=== PATIENT | male | born 1970 | race Caucasian/White ===

== ENCOUNTER 2017-04-10 21:43 | Inpatient (IN) | payer OTHER ==
[~2017-04-10] VITALS: Ht 172.7 cm; Wt 81.0 kg
[2017-04-10] MEDS: SODIUM CHLOR 0.9% 1000 ML INJ 1,000 ML IV SCH (00:30)
[2017-04-10 21:45] VITALS: O2SAT 100
[2017-04-10] MEDS ORDERED: GENTAMICIN 80 MG PREMIX 100 ML ONE (21:49)
[2017-04-10] MEDS ORDERED: VANCOMYCIN HCL 1000 MG VIAL ONE ×2 (21:49→21:53)
[2017-04-10] MEDS ORDERED: DIPHTH/TETANUS/ACEL PERTUSSIS (BOOSTER) 0.5 ML VIAL/PFS IM ONE ×2 (21:49→21:53)
[2017-04-10] MEDS ORDERED: SUCCINYLCHOLINE CHLORIDE 200 MG/10 ML VIAL ONE (21:50)
[2017-04-10] MEDS ORDERED: ETOMIDATE 20 MG/10 ML VIAL ONE (21:51)
[2017-04-10] MEDS ORDERED: PROPOFOL 1000 MG/100 ML INJ 100 ML ONE (21:54)
[2017-04-10 21:55] VITALS: O2SAT 100; O2SAT 96
[2017-04-10 22:19] LABS: AUTOMATED NEUTROPHIL # 4.8 TH/MM3 (1.8-7.7); BASOPHIL # 0.1 TH/MM3 (0-0.2); BASOPHIL % 0.5 % (0.0-2.0); EOSINOPHIL # 0.1 TH/MM3 (0-0.4); EOSINOPHIL % 1.4 % (0.0-4.0); HEMATOCRIT 38.8 % (39.0-51.0); HEMOGLOBIN 13.3 GM/DL (13.0-17.0); LYMPH % 44.2 % (9.0-44.0); LYMPHOCYTE # 4.4 TH/MM3 (1.0-4.8); MEAN CELL VOLUME 91.6 FL (80.0-100.0); MEAN CORPUSCULAR HEMOGLOBIN 31.3 PG (27.0-34.0); MEAN CORPUSCULAR HGB CONC 34.2 % (32.0-36.0); MEAN PLATELET VOLUME 8.3 FL (7.0-11.0); MONO % 5.9 % (0.0-8.0); MONOCYTE # 0.6 TH/MM3 (0-0.9); PLATELET COUNT 253 TH/MM3 (150-450); RED BLOOD COUNT 4.24 MIL/MM3 (4.50-5.90); RED CELL DISTRIBUTION WIDTH 12.1 % (11.6-17.2); WHITE BLOOD COUNT 9.9 TH/MM3 (4.0-11.0)
[2017-04-10 22:20] VITALS: O2SAT 100
[2017-04-10 22:26] LABS: INTERNATIONAL NORMALIZED RATIO 1.1 RATIO; PROTHROMBIN TIME - PATIENT 11.2 SEC (9.8-11.6)
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
[2017-04-10] MEDS ORDERED: IOHEXOL 350 MG/ML 10 ML VIAL (for RAD DIAG) IVCONTRAST ONE (22:45)
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
[2017-04-10 23:00] VITALS: O2SAT 100
[2017-04-10] MEDS ORDERED: BISACODYL 10 MG SUPP RECTAL PRN (23:00)
[2017-04-10] MEDS ORDERED: MAGNESIUM HYDROXIDE SUSP 30 ML CUP PO PRN (23:00)
[2017-04-10] MEDS ORDERED: CHLORHEXIDINE GLUCONATE 2 % 1 PACK (2 CLOTHS) TOP PRN (23:00)
[2017-04-10] MEDS ORDERED: SENNOSIDES 8.6 MG TAB PO PRN (23:00)
[2017-04-10] MEDS: DOCUSATE SODIUM 50 MG/SENNA 8.6 MG TAB PO SCH (23:00)
[2017-04-10] MEDS ORDERED: MISCELLANEOUS NURSING INFORMATION XX SCH (23:00)
[2017-04-10] MEDS ORDERED: LACTULOSE SYRUP 20 GM/30 ML CUP PO PRN (23:00)
[2017-04-10] MEDS ORDERED: MIDAZOLAM HCL 2 MG/2 ML VIAL IV SCH (23:20)
[2017-04-10] MEDS ORDERED: ROCURONIUM INJ 100 MG/10 ML VIAL IV SCH (23:20)
[2017-04-10] MEDS ORDERED: MIDAZOLAM HCL 5 MG/ML VIAL (1 ML) ONE (23:24)
[2017-04-10] MEDS ORDERED: ROCURONIUM INJ 50 MG/5 ML VIAL ONE (23:24)
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
[2017-04-10] MEDS ORDERED: fentaNYL 2,500 MCG/NS 250 ML IV PRN (23:45)
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
[2017-04-11] VITALS (14 sets, daily range): BP systolic 104–145; BP diastolic 54–82; PULSE 90–115; RESP 14–16; TEMP 97.2–100.9; O2SAT 99–100
[2017-04-11] MEDS ORDERED: PROPOFOL 500 MG/50 ML INJ 50 ML ONE (00:08)
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
[2017-04-11] MEDS ORDERED: MIDAZOLAM HCL 2 MG/2 ML VIAL ONE ×2 (01:04→12:53)
--- NOTE | 2017-04-11 01:27 | PD.RAD ---
Post Procedure Progress Note Pre Procedure Diagnosis: (1) Open femur fracture, right Post Procedure Diagnosis: (1) Open femur fracture, right Procedure Date: Apr 11, 2017 Supervising Radiologist: Chandler Flaherty Estimated blood loss: 3cc Anesthesia: Local, Conscious Sedation Plan of Activity Patient to Unit: Critical Care Patient Condition: Fair Additional Comments: Right leg angio completed. No active bleeding evident. Intimal injury of the mid SFA with contained partial transection noted. Area repaired with a 2.5cm x 8mm viabon stent. See PACS Report for procedural detail/treatment Chandler Flaherty MD Apr 11, 2017 01:27
[2017-04-11] MEDS ORDERED: IODIXANOL 320 MG/ML 50 ML VIAL (for RAD SPEC) I-ARTERIAL ONE (01:53)
[2017-04-11] MEDS: PROPOFOL 1000 MG/100 ML IV PRN ×6 (03:26→21:29)
[2017-04-11] MEDS: cefTRIAXone INJ 1,000 MG in SODIUM CHLORIDE 0.9% INJ 100 ML IV SCH ×3 (03:27→23:59)
[2017-04-11] MEDS: CHLORHEXIDINE GLUCONATE 2 % 1 PACK (2 CLOTHS) TOP SCH (04:00)
[2017-04-11 05:09] LABS: INTERNATIONAL NORMALIZED RATIO 1.1 RATIO; PROTHROMBIN TIME - PATIENT 11.2 SEC (9.8-11.6)
[2017-04-11 05:11] LABS: BICARBONATE 24.3 MEQ/L (21.0-32.0); CALCIUM 6.9 MG/DL (8.5-10.1); CREATININE 0.85 MG/DL (0.60-1.30); MAGNESIUM 1.8 MG/DL (1.5-2.5)
[2017-04-11 05:19] LABS: AUTOMATED NEUTROPHIL # 6.8 TH/MM3 (1.8-7.7); BASOPHIL % 0.2 % (0.0-2.0); EOSINOPHIL % 0.2 % (0.0-4.0); HEMATOCRIT 39.2 % (39.0-51.0); HEMOGLOBIN 13.4 GM/DL (13.0-17.0); LYMPH % 12.1 % (9.0-44.0); LYMPHOCYTE # 1.1 TH/MM3 (1.0-4.8); MEAN CORPUSCULAR HEMOGLOBIN 28.8 PG (27.0-34.0); MEAN CORPUSCULAR HGB CONC 34.2 % (32.0-36.0); MEAN PLATELET VOLUME 7.6 FL (7.0-11.0); MONO % 10.6 % (0.0-8.0); MONOCYTE # 0.9 TH/MM3 (0-0.9); NEUT % 76.9 % (16.0-70.0); PLATELET COUNT 137 TH/MM3 (150-450); RED BLOOD COUNT 4.66 MIL/MM3 (4.50-5.90); RED CELL DISTRIBUTION WIDTH 19.7 % (11.6-17.2); WHITE BLOOD COUNT 8.8 TH/MM3 (4.0-11.0)
[2017-04-11 05:24] LABS: TOTAL PROTEIN 6.2 GM/DL (6.4-8.2)
[2017-04-11 05:24] LABS: BILIRUBIN, URINE NEG (NEG); BLOOD, URINE MOD (NEG); GLUCOSE,URINE NEG (NEG); KETONE, URINE 10 mg/dL (NEG); NITRITE,URINE NEG (NEG); PH, URINE 5.5 (5.0-8.5); URINE COLOR YELLOW (YELLW/STRAW); URINE LEUKOCYTE ESTERASE NEG (NEG)
[2017-04-11 05:26] LABS: CALCIUM-PROTEIN CORRECTED 7.4 MG/DL (8.5-10.1)
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
[2017-04-11] MEDS: SODIUM CHLOR 0.9% 1000 ML INJ 1,000 ML IV SCH ×2 (08:25→17:16)
[2017-04-11] MEDS: MIDAZOLAM 100 MG/NS 100 ML DRIP Premix IV PRN (08:25)
[2017-04-11] MEDS: FAMOTIDINE 20 MG/2 ML VIAL IV PUSH SCH ×2 (08:25→21:26)
[2017-04-11] MEDS: DOCUSATE SODIUM 50 MG/SENNA 8.6 MG TAB PO SCH ×2 (08:25→21:27)
[2017-04-11] MEDS ORDERED: POTASSIUM CHLOR 40 MEQ PREMIX 100 ML IV PRN ×2 (08:30)
[2017-04-11] MEDS ORDERED: POTASSIUM PHOSPHATE MONOBASIC 500 MG TAB PO/TUBE PRN (08:30)
[2017-04-11] MEDS ORDERED: POTASSIUM PHOSPHATE MONOBASIC 500 MG TAB PO PRN (08:30)
[2017-04-11] MEDS ORDERED: POTASSIUM CHLOR 20 MEQ PREMIX 100 ML IV PRN ×2 (08:30)
[2017-04-11] MEDS ORDERED: MAGNESIUM SULFATE INJ 2 GM in SODIUM CHLORIDE 0.9% INJ 96 ML IV PRN (08:30)
[2017-04-11] MEDS ORDERED: RESP: ALBUTEROL 2.5 MG/IPRATROPIUM 0.5 MG NEB (PRN) NEB (08:30)
[2017-04-11] MEDS ORDERED: POTASSIUM PHOSPHATE INJ 30 MMOL in SODIUM CHLOR 0.9% 250 ML INJ 250 ML IV PRN (08:30)
[2017-04-11] MEDS ORDERED: POTASSIUM CHLORIDE 25 MEQ EFFERVESCENT TAB PO PRN (08:30)
[2017-04-11] MEDS ORDERED: SODIUM PHOSPHATE INJ 30 MMOL in SODIUM CHLOR 0.9% 250 ML INJ 240 ML IV PRN (08:30)
[2017-04-11] MEDS ORDERED: MAGNESIUM OXIDE 400 MG TAB PO PRN (08:30)
[2017-04-11] MEDS ORDERED: MAGNESIUM SULFATE INJ 4 GM in SODIUM CHLORIDE 0.9% INJ 92 ML IV PRN (08:30)
[2017-04-11] MEDS: RESP: ALBUTEROL 2.5 MG/IPRATROPIUM 0.5 MG NEB (SCH) NEB ×3 (09:04→20:34)
[2017-04-11] MEDS ORDERED: GENTAMICIN SULFATE 80 MG/2 ML VIAL ONE (09:52)
[2017-04-11] MEDS ORDERED: ceFAZolin INJ 1,000 MG VIAL ONE ×2 (09:53→12:17)
[2017-04-11] MEDS: fentaNYL 2,500 MCG/NS 250 ML IV PRN ×2 (10:45)
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
[2017-04-11] MEDS ORDERED: LACTATED RINGER'S 1000 ML INJ 2,000 ML IV ONE (12:00)
[2017-04-11] MEDS ORDERED: ROCURONIUM INJ 50 MG/5 ML SYRINGE IV PUSH ONE (12:00)
[2017-04-11] MEDS ORDERED: PERC7.5T13 PO (12:11)
[2017-04-11] MEDS ORDERED: VANCOMYCIN HCL 1000 MG VIAL ONE (12:16)
[2017-04-11] MEDS ORDERED: SODIUM CHLOR 0.9% 250 ML INJ 250 ML ONE (12:17)
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
--- NOTE | 2017-04-11 12:49 | HHI.PR ---
Immediate Post Op Note Procedure Date: Apr 11, 2017 Pre Op Diagnosis: (1) Fracture of proximal phalanx of right great toe (2) Laceration of toe of left foot with complication Post Op Diagnosis: same Surgeon: Ephraim Cano Heavy Equipment Mechanic(s): scrub Procedure: Incision drainage debridement with ORIF right proximal phalanx of Hallux with laceration repair Complications: none Specimen(s) removed: cx right hallux rx Estimated blood loss: less 30mL for foot procedure, please see EBL in Ortho OP report Anesthesia: General Drains: None Patient to: Other Patient Condition: Fair Implant/Devices: SEE IMPLANT LOG (if applicable) Date/Time of Procedure: SEE SURGICAL CARE RECORD Ephraim Cano DPM Apr 11, 2017 12:49
--- NOTE | 2017-04-11 12:51 | PD.POD ---
Objective Vital Signs Vital Signs Date Time Temp Pulse Resp B/P (MAP) Pulse Ox O2 Delivery O2 Flow Rate FiO2 04/11/17 10:30 99 100 04/11/17 10:00 115 04/11/17 08:00 105 04/11/17 08:00 40 04/11/17 08:00 100.6 105 14 119/66 (83) 99 04/11/17 07:28 100 30 04/11/17 07:00 99 Mechanical Ventilator 40 04/11/17 04:17 100 40 04/11/17 04:00 99.7 100 16 122/73 (89) 100 04/11/17 04:00 40 04/11/17 00:30 100 04/11/17 00:00 97.2 98 16 145/82 (103) 100 04/11/17 00:00 40 04/10/17 23:00 100 100 04/10/17 22:20 100 100 04/10/17 21:55 100 04/10/17 21:45 100 Non-Rebreather 04/10/17 21:45 100 12.00 Coded Allergies: No Known Allergies (Unverified , 04/10/17) Assessment & Plan Diagnosis: (1) Laceration of toe of left foot with complication ICD Codes: S91.119A - Laceration without foreign body of unspecified toe without damage to nail, initial encounter Status: Acute (2) Fracture of proximal phalanx of right great toe ICD Codes: S92.411A - Displaced fracture of proximal phalanx of right great toe , initial encounter for closed fracture Status: Acute A/P FULL CONSULT DICTATED OR today Incision drainage ORIF right hallux with laceration repair, will likely need digit amputation as zone of injury declares over the next few days Problem Qualifiers (1) Laceration of toe of left foot with complication: Qualified Codes: S91.119D - Laceration without foreign body of unspecified toe without damage to nail, subsequent encounter (2) Fracture of proximal phalanx of right great toe: Ephraim Cueva DPM Apr 11, 2017 12:51
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
[2017-04-11] MEDS ORDERED: Post-op Orders (for Pharmacy) XX ONE (13:00)
[2017-04-11] MEDS ORDERED: LACTULOSE SYRUP 20 GM/30 ML CUP PO PRN (13:00)
[2017-04-11] MEDS ORDERED: MORPHINE SULFATE 8 MG/ML INJ IV PUSH PRN (13:00)
[2017-04-11] MEDS ORDERED: ENOXAPARIN SODIUM 30 MG/0.3 ML SYRINGE SQ SCH (13:00)
[2017-04-11] MEDS ORDERED: SODIUM CHLORIDE 0.9% FLUSH 10 ML FLUSH IV FLUSH PRN (13:00)
[2017-04-11] MEDS ORDERED: MAGNESIUM HYDROXIDE SUSP 30 ML CUP PO PRN (13:00)
[2017-04-11] MEDS: KETOROLAC TROMETHAMINE 30 MG/ML (IVP) VIAL IVP SCH ×2 (13:00→21:27)
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
[2017-04-11] MEDS ORDERED: ALBUMIN 5% INJ 500 ML IV ONE (14:15)
--- NOTE | 2017-04-11 14:16 | PD.CONS ---
cc: Oc Yates Jr., MD HPI Service Orthopedic Surgeons Consult Requested By Primary Care Physician Unknown Admission Diagnosis Open pelvic fracture, Diagnoses: Chief Complaint: Right pelvic injury Open segmental right femur fracture History of Present Illness This is a 47-year-old male involved in an [place], was active bleeding from open femur wound on the right side so the tourniquet was up applied by EMS patient , was neurologically intact GCS 15, he has a right femur open wound 2010 cm anteriorly and one other 1010 cm open wound in the groin area to the pelvis open, initially he was hemodynamically normal then became hypotensive in the trauma bay. The patient received 4 units of PRBC, TXA, and FFP. Pelvic binder was placed. Radiographic examination in the emergency department reveal segmental right femur fracture as well as APC pelvic injury. Patient seen and examined while intubated. ROS - General Review of Systems ROS Limitations: Clinical Condition, Intubated PFSH Past Family Social History Allergies: Coded Allergies: No Known Allergies (Unverified , 04/10/17) Past Medical History None Past Surgical History None Reported Medications None Family History None Social History none Past Family Social History Allergies: Coded Allergies: No Known Allergies (Unverified , 04/10/17) Active Ordered Medications Current Medications Medications (Trade) Dose Ordered Sig/[place] Route Start Time Stop Time Status Last Admin Sodium Chloride 1,000 ml @ 100 mls/hr Q10H IV 04/10/17 23:00 04/11/17 08:25 (Pepcid Inj) 20 mg Q12HR IV PUSH 04/10/17 23:00 04/11/17 08:25 Miscellaneous Information 1 Q361D XX 04/10/17 23:00 04/10/17 00:30 (Chlorhexidine 2% Cloth) 3 pack Taper DAILY@04 TOP 04/11/17 04:00 04/07/18 03:59 (Chlorhexidine 2% Cloth) 3 pack UNSCH PRN TOP 04/10/17 23:00 (Deja-Colace) 1 tab BID PO 04/10/17 23:00 04/11/17 08:25 (Milk Of Magnesia Liq) 30 ml Q12H PRN PO 04/10/17 23:00 (Dulcolax Supp) 10 mg DAILY PRN RECTAL 04/10/17 23:00 (Lactulose Liq) 30 ml DAILY PRN PO 04/10/17 23:00 Fentanyl Citrate 250 ml @ 5 mls/hr TITRATE PRN IV 04/10/17 23:45 04/11/17 10:45 Ceftriaxone Sodium 1000 mg/ Sodium Chloride 100 ml @ 200 mls/hr Q12H IV 04/10/17 23:45 04/11/17 03:27 Midazolam HCl 100 ml @ 2 mls/hr TITRATE PRN IV 04/10/17 23:45 04/11/17 08:25 Propofol 100 ml @ 0 mls/hr TITRATE PRN IV 04/11/17 01:45 04/11/17 10:44 Potassium Chloride 100 ml @ 50 mls/hr Q2H PRN IV 04/11/17 08:30 Potassium Chloride 100 ml @ 50 mls/hr Q2H PRN IV 04/11/17 08:30 (K-Lyte Cl Eff) 50 meq UNSCH PRN PO 04/11/17 08:30 Potassium Chloride 100 ml @ 25 mls/hr UNSCH PRN IV 04/11/17 08:30 Potassium Chloride 100 ml @ 50 mls/hr Q2H PRN IV 04/11/17 08:30 Magnesium Sulfate 4 gm/Sodium Chloride 100 ml @ 50 mls/hr UNSCH PRN IV 04/11/17 08:30 (Mag-Ox) 800 mg UNSCH PRN PO 04/11/17 08:30 Magnesium Sulfate 2 gm/Sodium Chloride 100 ml @ 50 mls/hr UNSCH PRN IV 04/11/17 08:30 (K-Phos) 2,000 mg Q4H PRN PO 04/11/17 08:30 Sodium Phosphate 30 mmol/Sodium Chloride 250 ml @ 42 mls/hr UNSCH PRN IV 04/11/17 08:30 (K-Phos) 2,000 mg UNSCH PRN PO/TUBE 04/11/17 08:30 Potassium Phosphate 30 mmol/ Sodium Chloride 260 ml @ 42 mls/hr UNSCH PRN IV 04/11/17 08:30 (Peridex 0.12% Liq) 15 ml BID@08,20 MT 04/11/17 20:00 (Duoneb Neb) 1 ampule Q6HR NEB NEB 04/11/17 10:00 04/11/17 09:04 (Duoneb Neb) 1 ampule Q2HR NEB PRN NEB 04/11/17 08:30 (NS Flush) 2 ml UNSCH PRN IV FLUSH 04/11/17 13:00 (NS Flush) 2 ml BID IV FLUSH 04/11/17 21:00 Cefazolin Sodium 1000 mg/Sodium Chloride 100 ml @ 200 mls/hr Q6H IV 04/11/17 12:15 04/16/17 12:14 UNV Vancomycin HCl 1000 mg/Sodium Chloride 250 ml @ 250 mls/hr Q12H IV 04/11/17 12:15 04/16/17 12:14 UNV (Lovenox Inj) 30 mg Q12H SQ 04/11/17 12:15 UNV (Morphine Inj) 5 mg Q3H PRN IV PUSH 04/11/17 13:00 (Percocet 5-325 Mg) 1 tab Q4H PRN PO 04/11/17 13:00 (Percocet 5-325 Mg) 2 tab Q4H PRN PO 04/11/17 13:00 (Toradol Inj) 15 mg Q6H IVP 04/11/17 13:00 04/13/17 07:01 (Phenergan) 25 mg Q4H PRN PO 04/11/17 13:00 (Theragran M Tab) 1 tab BID PO 04/12/17 21:00 06/11/17 20:59 (Ambien) 5 mg HS PRN PO 04/11/17 21:00 (Deja-Colace) 1 tab BID PO 04/11/17 21:00 (Milk Of Magnesia Liq) 30 ml Q12H PRN PO 04/11/17 13:00 (Senokot) 17.2 mg Q12H PRN PO 04/11/17 13:00 (Dulcolax Supp) 10 mg DAILY PRN RECTAL 04/11/17 13:00 (Lactulose Liq) 30 ml DAILY PRN PO 04/11/17 13:00 (Lovenox Inj) 30 mg Q12H SQ 04/11/17 13:00 UNV Reported Meds & Active Scripts Active Percocet (Oxycodone-Acetaminophen) 7.5-325 mg Tab 1 Tab PO Q4H PRN Physical Exam Vital Signs Vital Signs Date Time Temp Pulse Resp B/P (MAP) Pulse Ox O2 Delivery O2 Flow Rate FiO2 04/11/17 10:30 99 100 04/11/17 10:00 115 04/11/17 08:00 105 04/11/17 08:00 40 04/11/17 08:00 100.6 105 14 119/66 (83) 99 04/11/17 07:28 100 30 04/11/17 07:00 99 Mechanical Ventilator 40 04/11/17 04:17 100 40 04/11/17 04:00 99.7 100 16 122/73 (89) 100 04/11/17 04:00 40 04/11/17 00:30 100 04/11/17 00:00 97.2 98 16 145/82 (103) 100 04/11/17 00:00 40 04/10/17 23:00 100 100 04/10/17 22:20 100 100 04/10/17 21:55 100 04/10/17 21:45 100 Non-Rebreather 04/10/17 21:45 100 12.00 Physical Exam Intubated Head: NC/AT Bilateral upper extremity: Good cap refill. Fingers are warm and well- perfused. 2+ radial artery pulses. RIGHT lower extremity: Shortened and externally rotated right lower extremity. Large 10 x 10cm proximal medial thigh wound extending into the groin with exposed femoral neurovascular bundle. A large 10 x 20 cm mid shaft femur wound with exposed soft tissue with significant dirt and soft tissue contamination. + PT/DP pulses. Supple compartments. Severely bruised right great toe, otherwise toes are warm and well-perfused. LEFT lower extremity: No deformity. Supple compartments. toes warm and well perfused. Laboratory Laboratory Tests Test 04/10/17 21:48 04/10/17 23:45 04/11/17 04:30 04/11/17 04:37 White Blood Count 9.9 8.8 Red Blood Count 4.24 4.66 Hemoglobin 13.3 13.4 Bedside Hemoglobin 12.6 Hematocrit 38.8 39.2 Bedside Hematocrit 37.0 Mean Corpuscular Volume 91.6 84.0 Mean Corpuscular Hemoglobin 31.3 28.8 Mean Corpuscular Hemoglobin Concent 34.2 34.2 Red Cell Distribution Width 12.1 19.7 Platelet Count 253 137 Mean Platelet Volume 8.3 7.6 Neutrophils (%) (Auto) 48.0 76.9 Lymphocytes (%) (Auto) 44.2 12.1 Monocytes (%) (Auto) 5.9 10.6 Eosinophils (%) (Auto) 1.4 0.2 Basophils (%) (Auto) 0.5 0.2 Neutrophils # (Auto) 4.8 6.8 Lymphocytes # (Auto) 4.4 1.1 Monocytes # (Auto) 0.6 0.9 Eosinophils # (Auto) 0.1 0.0 Basophils # (Auto) 0.1 0.0 CBC Comment DIFF FINAL AUTO DIFF Differential Comment AUTO DIFF CONFIRMED Prothrombin Time 11.2 11.2 Prothromb Time International Ratio 1.1 1.1 Activated Partial Thromboplast Time 21.9 Bedside Sodium 142 Bedside Potassium 3.5 Bedside Chloride 105 Bedside Blood Urea Nitrogen 15 Bedside Creatinine 1.3 Bedside Glucose 116 Ethyl Alcohol Level 241 Blood Gas Puncture Site LT RADIAL Blood Gas Patient Temperature 98.6 Blood Gas HCO3 21 Blood Gas Base Excess -4.8 Blood Gas Oxygen Saturation 98 Arterial Blood pH 7.28 Arterial Blood Partial Pressure CO2 46 Arterial Blood Partial Pressure O2 475 Arterial Blood Oxygen Content 19.3 Arterial Blood Carboxyhemoglobin 1.1 Arterial Blood Methemoglobin 1.1 Blood Gas Hemoglobin 13.2 Oxygen Delivery Device VENTILATOR Blood Gas Ventilator Setting PRVC16/600/+8/1.0 Blood Gas Inspired Oxygen 100 Nasal Screen MRSA (PCR) MRSA NOT DETECTED Platelet Estimate LOW Platelet Morphology Comment NORMAL Blood Urea Nitrogen 11 Creatinine 0.85 Random Glucose 105 Total Protein 6.2 Calcium Level 6.9 Magnesium Level 1.8 Sodium Level 142 Potassium Level 3.7 Chloride Level 108 Carbon Dioxide Level 24.3 Anion Gap 10 Estimat Glomerular Filtration Rate 97 Protein Corrected Calcium 7.4 Phosphorus Level 2.7 Test 04/11/17 05:00 04/11/17 11:18 Urine Color YELLOW Urine Turbidity CLEAR Urine pH 5.5 Urine Specific [place] GREATER THAN 1.050 Urine Protein 30 Urine Glucose (UA) NEG Urine Ketones 10 Urine Occult Blood MOD Urine Nitrite NEG Urine Bilirubin NEG Urine Urobilinogen LESS THAN 2.0 Urine Leukocyte Esterase NEG Urine RBC 9 Urine WBC 2 Microscopic Urinalysis Comment CATH-CULT NOT IND Blood Gas Puncture Site ART LINE Blood Gas Patient Temperature 98.6 Blood Gas HCO3 25 Blood Gas Base Excess -0.9 Blood Gas Oxygen Saturation 97 Arterial Blood pH 7.31 Arterial Blood Partial Pressure CO2 50 Arterial Blood Partial Pressure O2 257 Arterial Blood Oxygen Content 14.8 Arterial Blood Carboxyhemoglobin 1.0 Arterial Blood Methemoglobin 1.7 Blood Gas Hemoglobin 10.4 Oxygen Delivery Device VENTILATOR Blood Gas Inspired Oxygen 60 Date/Time Source Procedure Growth Status 04/11/17 12:14 Wound Toe Fungal Smear Pending Received 04/11/17 12:14 Wound Toe Fungal Culture Pending Received Result Diagram: 04/11/17 0437 04/11/17 0437 Imaging Last 72 hours Impressions Toe X-Ray 04/11/17 0000 Signed Impressions: Service Date/Time: Tuesday, April 11, 2017 11:15 - CONCLUSION: Gross alignment of comminuted proximal phalangeal fractures. Juaquin Arias MD Foot X-Ray 04/11/17 0000 Signed Impressions: Service Date/Time: Tuesday, April 11, 2017 04:18 - CONCLUSION: 1. Open comminuted fracture of the first proximal phalanx. Kraig Avila MD Femur X-Ray 04/11/17 0000 Signed Impressions: Service Date/Time: Tuesday, April 11, 2017 11:15 - CONCLUSION: Fractures. Juaquin Arias MD Chest X-Ray 04/11/17 0000 Signed Impressions: Service Date/Time: Tuesday, April 11, 2017 04:15 - CONCLUSION: 1. ETT and NGT as above. 2. No acute abnormality or significant interval change. Kraig Avila MD Thoracic Spine CT 04/10/172206 Signed Impressions: Service Date/Time: Monday, April 10, 2017 22:36 - CONCLUSION: 1. No acute fracture or subluxation. Kraig Avila MD Pelvis X-Ray 04/10/172206 Signed Impressions: Service Date/Time: Monday, April 10, 2017 21:46 - CONCLUSION: 1. Multiple right-sided pelvic fractures and diastases pubic symphysis Gee Lloyd MD Lumbar Spine CT 04/10/172206 Signed Impressions: Service Date/Time: Monday, April 10, 2017 22:36 - CONCLUSION: 1. Very subtle, less than 2 mm, retrolisthesis of L3 on L4. Th suspect this is likely secondary to degenerative spondylosis in the lower lumbar spine. 2. No acute lumbar spine fracture. 3. Degenerative spondylosis of the lower lumbar spine most prominently at L3-S1. Kraig Avila MD Head CT 04/10/172206 Signed Impressions: Service Date/Time: Monday, April 10, 2017 22:27 - CONCLUSION: No acute intracranial disease. Gee Lloyd MD Chest X-Ray 04/10/172206 Signed Impressions: Service Date/Time: Monday, April 10, 2017 21:46 - CONCLUSION: No acute disease. Gee Lloyd MD Chest CT 04/10/172206 Signed Impressions: Service Date/Time: Monday, April 10, 2017 22:36 - CONCLUSION: 1. Mild posterior lower lobe ground glass opacities consistent with lung contusions versus atelectasis. 2. Right clavicle fixation hardware and old healed left clavicle fracture. 3. Otherwise, no acute traumatic injury in the chest. Kraig Avila MD Cervical Spine CT 04/10/172206 Signed Impressions: Service Date/Time: Monday, April 10, 2017 22:27 - CONCLUSION: 1. No fracture or subluxation. Gee Lloyd MD Abdomen/Pelvis CT 04/10/172206 Signed Impressions: Service Date/Time: Monday, April 10, 2017 22:36 - CONCLUSION: 1. Right-sided shear type pelvic injury with oblique right iliac fracture and disruption of the pubic symphysis and right SI joint. 2. Comminuted right femoral intertrochanteric fracture with osseous fracture near open right pelvic wound. 3. No definitive active hemorrhage or significant hematoma in the pelvis. Small hematoma in the lateral right abdominal wall. Kraig Avila MD Tibia/Fibula X-Ray 04/10/17 0000 Signed Impressions: Service Date/Time: Monday, April 10, 2017 21:46 - CONCLUSION: No fracture seen. Gee Lloyd MD Lower Extremity Angiography 04/10/17 0000 Signed Impressions: Service Date/Time: Tuesday, April 11, 2017 01:37 - CONCLUSION: 1. No definite active bleed was evident however, the examination did demonstrate focal intimal disruption with high grade stenosis involving the right superficial femoral artery at the adductor hiatus. This was immediately adjacent to the patient's severe femur fracture. This was treated with a 2.5 cm by 8mm via bon stent. Postprocedure, the patient had excellent pedal pulses. Chandler Flaherty MD Femur X-Ray 04/10/17 0000 Signed Impressions: Service Date/Time: Monday, April 10, 2017 21:46 - CONCLUSION: Comminuted fracture mid to distal shaft of the femur.. Gee Lloyd MD Chest X-Ray 04/10/17 0000 Signed Impressions: Service Date/Time: Monday, April 10, 2017 21:46 - CONCLUSION: No acute disease. Endotracheal tube with tip 2.5 cm above jade. Gee Lloyd MD Aorta w/Runoff CTA 04/10/17 0000 Signed Impressions: Service Date/Time: Monday, April 10, 2017 22:36 - CONCLUSION: 1. There are two areas of apparent active hemorrhage in the right thigh. Most prominently, active hemorrhage is noted in the proximal posterior thigh compartment likely from a proximal profunda branch although a distal gluteal branch injury cannot be excluded due to the cephalad extent of hemorrhage. There is a second more subtle region of active hemorrhage in the mid medial thigh compartment likely from a distal profunda branch injury. 2. Right pelvic shear injury with fracture of the right iliac bone and diastases of the right SI joint and pubic symphysis. 3. Comminuted open right femoral intertrochanteric and comminuted mid to distal right femoral diaphyseal fractures. 4. Comminuted open fracture of the right first toe. Kraig Avila MD Assessment & Plan Assessment and Plan 1- Segmental grade 3C open RIGHT femur fracture 2-APC pelvic injury. Patient seen and examined while intubated. 47-year-old male involved in an [place], presented to the emergency department with a tourniquet on the right extremity from open right thigh injury. He initially he was hemodynamically normal then became hypotensive in the trauma bay. The patient received 4 units of PRBC, TXA, and FFP. Pelvic binder was placed. He subsequently had a stent placed in his superficial femoral artery by interventional radiology for arterial injury. Radiographic examination in the emergency department reveal segmental right femur fracture as well as APC pelvic injury. This patient has a severe injury to her right lower extremity which are limb threatening and at increased risk for postoperative infection and complication. He will require multiple orthopedic procedures as well as plastic surgery intervention for soft tissue coverage in the future. At this time, I recommend wound exploration, irrigation and debridement, possible external fixator placement. IV abx given. Oc Yates Jr., MD Apr 11, 2017 14:16
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
[2017-04-11] MEDS ORDERED: SODIUM BICARBONATE 8.4% INJ 100 MEQ in WATER STERILE FOR INJ 850 ML IV SCH (17:00)
[2017-04-11] MEDS ORDERED: SODIUM BICARBONATE 8.4% INJ 150 MEQ in WATER STERILE FOR INJ 850 ML IV SCH (17:00)
[2017-04-11] MEDS ORDERED: SODIUM CHLOR 0.9% 1000 ML INJ 1,000 ML IV ONE (17:30)
[2017-04-11] MEDS: SODIUM BICARBONATE 8.4% INJ 100 MEQ in WATER STERILE FOR INJ 900 ML IV SCH (19:00)
[2017-04-11] MEDS: CHLORHEXIDINE 0.12% (ORAL KIT) 15 ML CUP MT SCH (20:00)
[2017-04-11] MEDS: SODIUM CHLORIDE 0.9% FLUSH 10 ML FLUSH IV FLUSH SCH (21:00)
[2017-04-11] MEDS ORDERED: ZOLPIDEM TARTRATE 5 MG TAB PO PRN (21:00)
[2017-04-12] VITALS (16 sets, daily range): BP systolic 92–141; BP diastolic 50–76; PULSE 96–122; RESP 14–16; TEMP 99.7–101.7; O2SAT 93–100
[2017-04-12] MEDS ORDERED: ACETAMINOPHEN 325 MG TAB PO SCH
[2017-04-12] MEDS: VANCOMYCIN INJ 1,000 MG in SODIUM CHLOR 0.9% 250 ML INJ 250 ML IV SCH ×2 (00:58→13:38)
[2017-04-12] MEDS: fentaNYL 2,500 MCG/NS 250 ML IV PRN ×2 (01:36→17:16)
[2017-04-12] MEDS: KETOROLAC TROMETHAMINE 30 MG/ML (IVP) VIAL IVP SCH ×4 (01:59→20:02)
[2017-04-12 03:46] LABS: AUTOMATED NEUTROPHIL # 6.2 TH/MM3 (1.8-7.7); BASOPHIL % 0.4 % (0.0-2.0); EOSINOPHIL # 0.1 TH/MM3 (0-0.4); EOSINOPHIL % 1.7 % (0.0-4.0); HEMATOCRIT 29.2 % (39.0-51.0); HEMOGLOBIN 9.9 GM/DL (13.0-17.0); LYMPH % 11.2 % (9.0-44.0); LYMPHOCYTE # 0.9 TH/MM3 (1.0-4.8); MEAN CELL VOLUME 83.8 FL (80.0-100.0); MEAN CORPUSCULAR HEMOGLOBIN 28.4 PG (27.0-34.0); MEAN CORPUSCULAR HGB CONC 33.9 % (32.0-36.0); MEAN PLATELET VOLUME 7.9 FL (7.0-11.0); MONO % 6.1 % (0.0-8.0); MONOCYTE # 0.5 TH/MM3 (0-0.9); NEUT % 80.6 % (16.0-70.0); PLATELET COUNT 107 TH/MM3 (150-450); RED BLOOD COUNT 3.48 MIL/MM3 (4.50-5.90); RED CELL DISTRIBUTION WIDTH 18.9 % (11.6-17.2); WHITE BLOOD COUNT 7.7 TH/MM3 (4.0-11.0)
[2017-04-12] MEDS: CHLORHEXIDINE GLUCONATE 2 % 1 PACK (2 CLOTHS) TOP SCH (04:00)
[2017-04-12] MEDS: RESP: ALBUTEROL 2.5 MG/IPRATROPIUM 0.5 MG NEB (SCH) NEB ×3 (04:09→19:49)
[2017-04-12 04:22] LABS: ALBUMIN 2.6 GM/DL (3.4-5.0); BICARBONATE 28.8 MEQ/L (21.0-32.0); CALCIUM 6.5 MG/DL (8.5-10.1); CREATININE 0.73 MG/DL (0.60-1.30); MAGNESIUM 1.7 MG/DL (1.5-2.5)
[2017-04-12 04:41] LABS: CALCIUM-PROTEIN CORRECTED 7.6 MG/DL (8.5-10.1); TOTAL BILIRUBIN ADULT 1.7 MG/DL (0.2-1.0); TOTAL PROTEIN 4.9 GM/DL (6.4-8.2)
--- NOTE | 2017-04-12 05:24 | RADRPT ---
EXAM DATE/TIME: 04/12/2017 04:18 [place] COMPARISON: CHEST SINGLE AP, April 11, 2017, 4:15. INDICATIONS : Short of breath. MEDICAL HISTORY : None. SURGICAL HISTORY : None. ENCOUNTER: Subsequent ACUITY: 2 days PAIN SCORE: 0/10 LOCATION: Bilateral chest FINDINGS: ET tube tip well above the jade. Gastric tube traverses the [id number] there the lungs are symm etrically aerated and clear. The heart is normal in size. Right clavicular plate. Healed fracture left mid shaft clavicle. CONCLUSION: The lungs are clear. Scar Bryan MD on April 12, 2017 at 5:22 Board Certified Radiologist. This report was verified electronically.
[2017-04-12] MEDS ORDERED: LACTATED RINGER'S 1000 ML INJ 1,000 ML IV ONE (05:45)
[2017-04-12] MEDS: SODIUM CHLOR 0.9% 1000 ML INJ 1,000 ML IV SCH ×2 (06:15→16:01)
[2017-04-12] MEDS: SODIUM BICARBONATE 8.4% INJ 100 MEQ in WATER STERILE FOR INJ 900 ML IV SCH (06:33)
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
[2017-04-12 07:27] LABS: OVALOCYTES 1+ (NORMAL)
[2017-04-12] MEDS: CHLORHEXIDINE 0.12% (ORAL KIT) 15 ML CUP MT SCH ×2 (08:00→20:00)
[2017-04-12] MEDS: DOCUSATE SODIUM 50 MG/SENNA 8.6 MG TAB PO SCH ×2 (08:44→20:02)
[2017-04-12] MEDS: FAMOTIDINE 20 MG/2 ML VIAL IV PUSH SCH ×2 (08:44→20:01)
[2017-04-12] MEDS: SODIUM CHLORIDE 0.9% FLUSH 10 ML FLUSH IV FLUSH SCH ×2 (08:45→20:03)
[2017-04-12] MEDS: LACTULOSE SYRUP 20 GM/30 ML CUP PO SCH (08:45)
[2017-04-12] MEDS: ACETAMINOPHEN 325 MG TAB PO PRN ×2 (09:36→20:01)
[2017-04-12] MEDS: cefTRIAXone INJ 1,000 MG in SODIUM CHLORIDE 0.9% INJ 100 ML IV SCH (09:59)
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
[2017-04-12 10:50] LABS: HEMATOCRIT 25.3 % (39.0-51.0); HEMOGLOBIN 8.7 GM/DL (13.0-17.0)
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
--- NOTE | 2017-04-12 15:11 | OTSOAPIP ---
TIME SESSION COMPLETED: AM TREATMENT TIME: 0 MINS. CHART REVIEWED. RECEIVED ORDERS FOR OT CONSULT. PT IN BUCKS TRACTION AND PENDING SURGERY LIKELY TOMORROW. WILL HOLD OFF UNTIL AFTER SURGERY FOR ASSESSMENT. Therapist: GENESIS DICK OT/L Signature on file
[2017-04-12] MEDS: MULTIVITAMINS/MINERALS THERAPEUTIC TAB PO SCH (20:01)
--- NOTE | 2017-04-12 20:58 | PD.POD ---
Subjective Podiatric Problems Right hallux comminuted proximal phalanx fracture s/p pinning of right hallux and repair of laceration, Anay 04/11/17 Objective Vital Signs Vital Signs Date Time Temp Pulse Resp B/P (MAP) Pulse Ox O2 Delivery O2 Flow Rate FiO2 04/12/17 20:00 30 04/12/17 20:00 101.7 122 16 141/70 (93) 97 102/76 (85) Automatic Cuff 04/12/17 19:49 97 30 04/12/17 19:00 97 Mechanical Ventilator 30 04/12/17 16:00 100.4 103 14 116/61 (79) 100 04/12/17 16:00 30 04/12/17 15:13 100 30 04/12/17 15:00 103 04/12/17 12:00 100.0 100 14 92/53 (66) 100 04/12/17 12:00 30 04/12/17 11:12 99 30 04/12/17 08:00 30 04/12/17 08:00 100.8 117 14 122/59 (80) 93 04/12/17 07:44 98 30 04/12/17 07:00 117 04/12/17 07:00 95 Mechanical Ventilator 40 04/12/17 04:09 100 30 04/12/17 04:00 99.7 96 14 102/50 (67) 100 04/12/17 04:00 30 04/12/17 00:57 100 30 04/12/17 00:00 100.9 108 14 107/61 (76) 100 04/12/17 00:00 30 04/11/17 23:00 115 04/11/17 21:49 100 30 Coded Allergies: No Known Allergies (Unverified , 04/10/17) Exam-Podiatry Remarks capillary refill apparent to distal aspect right hallux. pin in place. Pin site clean, bandage intact Assessment & Plan A/P Right hallux comminuted proximal phalanx fracture s/p pinning of right hallux and repair of laceration, Anay 04/11/17 Will continue to assess viability of toe and will change bandage in coming days. Keep clean, dry, intact Nenita Painter DPM Apr 12, 2017 20:57
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
[2017-04-13] VITALS (19 sets, daily range): BP systolic 91–140; BP diastolic 47–80; PULSE 92–133; RESP 14–18; TEMP 96.8–101.5; O2SAT 94–100
[2017-04-13] MEDS: cefTRIAXone INJ 1,000 MG in SODIUM CHLORIDE 0.9% INJ 100 ML IV SCH ×2 (00:12→11:45)
[2017-04-13] MEDS: SODIUM CHLOR 0.9% 1000 ML INJ 1,000 ML IV SCH ×3 (00:43→23:08)
[2017-04-13] MEDS: VANCOMYCIN INJ 1,000 MG in SODIUM CHLOR 0.9% 250 ML INJ 250 ML IV SCH ×2 (00:52→14:38)
[2017-04-13] MEDS: KETOROLAC TROMETHAMINE 30 MG/ML (IVP) VIAL IVP SCH ×2 (01:05→07:00)
[2017-04-13] MEDS: SODIUM BICARBONATE 8.4% INJ 100 MEQ in WATER STERILE FOR INJ 900 ML IV SCH (01:29)
[2017-04-13] MEDS: RESP: ALBUTEROL 2.5 MG/IPRATROPIUM 0.5 MG NEB (SCH) NEB ×4 (02:58→21:09)
[2017-04-13] MEDS: CHLORHEXIDINE GLUCONATE 2 % 1 PACK (2 CLOTHS) TOP SCH (03:34)
[2017-04-13] MEDS: MIDAZOLAM 100 MG/NS 100 ML DRIP Premix IV PRN (04:03)
[2017-04-13] MEDS: fentaNYL 2,500 MCG/NS 250 ML IV PRN ×2 (04:03→14:38)
[2017-04-13 04:43] LABS: AUTOMATED NEUTROPHIL # 5.1 TH/MM3 (1.8-7.7); BASOPHIL % 0.4 % (0.0-2.0); EOSINOPHIL # 0.3 TH/MM3 (0-0.4); EOSINOPHIL % 3.9 % (0.0-4.0); HEMATOCRIT 24.2 % (39.0-51.0); HEMOGLOBIN 8.4 GM/DL (13.0-17.0); LYMPH % 11.3 % (9.0-44.0); LYMPHOCYTE # 0.7 TH/MM3 (1.0-4.8); MEAN CELL VOLUME 84.2 FL (80.0-100.0); MEAN CORPUSCULAR HEMOGLOBIN 29.1 PG (27.0-34.0); MEAN CORPUSCULAR HGB CONC 34.6 % (32.0-36.0); MEAN PLATELET VOLUME 7.9 FL (7.0-11.0); MONOCYTE # 0.4 TH/MM3 (0-0.9); NEUT % 78.4 % (16.0-70.0); PLATELET COUNT 103 TH/MM3 (150-450); RED BLOOD COUNT 2.87 MIL/MM3 (4.50-5.90); RED CELL DISTRIBUTION WIDTH 17.6 % (11.6-17.2); WHITE BLOOD COUNT 6.4 TH/MM3 (4.0-11.0)
[2017-04-13 05:13] LABS: BICARBONATE 28.6 MEQ/L (21.0-32.0); CALCIUM 6.8 MG/DL (8.5-10.1); CREATININE 0.54 MG/DL (0.60-1.30); MAGNESIUM 1.8 MG/DL (1.5-2.5); TOTAL PROTEIN 4.8 GM/DL (6.4-8.2)
--- NOTE | 2017-04-13 06:11 | RADRPT ---
EXAM DATE/TIME: 04/13/2017 05:10 [facility] COMPARISON: CHEST SINGLE AP, April 12, 2017, 4:18. INDICATIONS : Short of breath. MEDICAL HISTORY : None. SURGICAL HISTORY : None. ENCOUNTER: Subsequent ACUITY: 3 days PAIN SCORE: Non-responsive. LOCATION: Bilateral chest FINDINGS: A single view of the chest demonstrates the lungs to be symmetrically aerated without evidence of mas s, infiltrate or effusion. The cardiomediastinal contours are unremarkable. ET tube tip well above the jade. Gastric tube traverses the [id number]. Stable clavicular findings. CONCLUSION: The lungs are clear. Scar Bryan MD on April 13, 2017 at 6:09 Board Certified Radiologist. This report was verified electronically.
--- NOTE | 2017-04-13 07:22 | RADRPT ---
EXAM DATE/TIME: 04/13/2017 06:50 [facility] COMPARISON: No previous studies available for comparison. INDICATIONS : Evaluate right knee for fracture MEDICAL HISTORY : femur fracture, wound vac x 2, traction, pelvic fracture SURGICAL HISTORY : wound vac ENCOUNTER: Subsequent ACUITY: 2 days PAIN SCORE: Non-responsive. LOCATION: Right knee FINDINGS: There is a complete fracture of the distal femoral diaphysis which is shattered with numerous displac ed bony fragments significant displacement and angulation. There may be a hairline fracture of the an terior tibial spine. A femoral artery stent is identified. CONCLUSION: Shattered distal femoral fracture questionable fracture anterior tibial spine. Juaquin Arias MD on April 13, 2017 at 7:20 Board Certified Radiologist. This report was verified electronically.
[2017-04-13] MEDS: CHLORHEXIDINE 0.12% (ORAL KIT) 15 ML CUP MT SCH ×2 (07:43→20:00)
[2017-04-13] MEDS: DOCUSATE SODIUM 50 MG/SENNA 8.6 MG TAB PO SCH ×2 (07:44→21:05)
[2017-04-13] MEDS: LACTULOSE SYRUP 20 GM/30 ML CUP PO SCH (07:44)
[2017-04-13] MEDS: MULTIVITAMINS/MINERALS THERAPEUTIC TAB PO SCH ×2 (07:44→21:05)
[2017-04-13] MEDS: FAMOTIDINE 20 MG/2 ML VIAL IV PUSH SCH ×2 (07:51→21:06)
[2017-04-13] MEDS: SODIUM CHLORIDE 0.9% FLUSH 10 ML FLUSH IV FLUSH SCH ×2 (07:51→21:06)
[2017-04-13] MEDS ORDERED: GENTAMICIN SULFATE 80 MG/2 ML VIAL ONE ×3 (09:43→12:11)
[2017-04-13] MEDS ORDERED: ceFAZolin 2 GM PREMIX 50 ML ONE (10:44)
[2017-04-13] MEDS ORDERED: ceFAZolin 2 GM PREMIX 50 ML IV ONE (11:38)
[2017-04-13] MEDS ORDERED: PHENYLEPH/NS 1000 MCG/10 ML SYR IV ONE (12:00)
[2017-04-13] MEDS ORDERED: SODIUM CHLORIDE 0.9% 20 ML VIAL IV ONE (12:00)
[2017-04-13] MEDS ORDERED: ROCURONIUM INJ 50 MG/5 ML SYRINGE IV PUSH ONE (12:00)
[2017-04-13] MEDS ORDERED: PHENYLEPHRINE HCL 10 MG/ML VIAL IV ONE (12:00)
[2017-04-13] MEDS ORDERED: SODIUM CHLOR 0.9% 250 ML INJ 250 ML IV ONE (12:00)
[2017-04-13] MEDS ORDERED: VECURONIUM BROMIDE 20 MG VIAL IV ONE (12:00)
[2017-04-13] MEDS: LACTATED RINGER'S 1000 ML INJ 1,000 ML IV SCH ×2 (12:56→22:56)
--- NOTE | 2017-04-13 13:06 | PD.OP ---
cc: Gt Daily MD Operative Report Date of Surgery: Apr 13, 2017 Preoperative Diagnosis: Pubic symphysis disruption, displaced right hip intertrochanteric fracture, open right distal femur shaft fracture Postoperative Diagnosis: Procedure: Open reduction internal fixation pubic symphysis, reduction and intramedullary nail fixation right intraventricular fracture, irrigation debridement of open distal femur fracture, application wound VAC dressing Surgeon: Gt Daily Electronic Organ Technician(s): LÓPEZ Love PA-C The surgical procedure was assisted by my physician assistant professor of chemistry. My P.A. presence was necessary throughout this case for the manipulation and positioning of the surgical extremity. My P.A. was assisting me throughout the duration of this procedure. The skill set of a physician assistant professor of chemistry was medically necessary to complete this procedure. During the surgical case the director surgical was working at the back table and the physician assistant professor of chemistry was directly assisting me. Operation and Findings: Implants used: ITS pelvic plate, [10]mm Synthes TFNA short troch nail Patient was seen and evaluated preoperatively. Informed consent was obtained after detailed discussion of risk and benefits of surgery. The operative site was marked. Patient was brought to the OR and placed on the OR table. IV sedation and general endotracheal anesthesia were administered. The pelvic region was prepped with alcohol followed by Hibiclens and draped in the usual sterile fashion. A timeout procedure was performed. IV antibiotics were given prior to incision. The procedure began with a five-inch Pfannenstiel incision over the lower abdomen. The subcutaneous tissue was dissected with Bovie. The linea alba was split in line with fibers. The bladder was identified. The bladder was protected throughout the procedure. At this point the pubic symphysis was identified. There was disruption of the pubic symphysis. A 3.5 screw was placed on each side of the pubic symphysis. A 3.5 reduction clamp was now used to reduce the symphysis. Fluoroscopy confirmed excellent alignment of the pelvic ring. A six-hole ITS plate was selected. The plate was provisionally held to bone with K-wires. 3.5 cortical screws were used to compress plate to bone. Three screws were placed on each side of the pubic symphysis. All screws were pre-drilled and pre-measured for appropriate length. Final fluoroscopy revealed well-aligned fracture with well-placed hardware. Next attention was turned to closure. A JAMIL drain was placed deep in the wound. Fascial layer was closed with #1 Vicryl. Subcutaneous tissues closed with 3-0 Vicryl. Skin was closed with nico. Sterile dressings were applied. Needle and sponge counts were correct. Patient was now repositioned onto a fracture table. The right Hip and leg were prepped with alcohol followed by Hibiclens and draped in the usual sterile fashion. IV antibiotics were given prior to incision. Procedure began with reduction of fracture. The intertrochanteric, I was unable to use traction from the fracture table. At this point an external fixator pin was placed in the super acetabular position. A second external fixator pin was placed into the mid section of the femur. A distractor was created. Traction was applied across the intertrochanteric hip fracture. Traction was manipulated until excellent reduction was achieved.. The leg was manipulated to achieve reduction. Fluoroscopy was used to confirm reduction. A three inch incision was made proximal to the trochanter. Subcutaneous tissue was dissected bluntly. Guidepin was placed at the tip of the trochanter and advanced into the femoral canal. Fluoroscopy confirmed appropriate guidepin placement. A opening reamer was placed over the guidepin. The Synthes TFNA nail was attached to the insertion handle. Nail was now placed through the tip of the trochanter into the femoral canal. Fluoroscopy confirmed appropriate nail placement. A second incision was made over the lateral thigh. Cannulas were placed through the insertion handle down to the femur. Guidepin was now placed through the femoral nail into the center of the femoral head. Fluoroscopy confirmed appropriate guidepin placement. Screw length was measured. Cannulated drill was placed over the guidepin. Appropriate length lag screw was now placed. Traction was released and compression was applied. The set screw was now tightened in dynamic mode. Using the insertion handle as a guide a distal interlocking screw was drilled and placed. Final fluoroscopy revealed well aligned fracture with well-placed hardware. Incision was closed with 3-0 Vicryl and nico. At this point the external fixator distractor was removed. Next attention was turned to the open femoral shaft fracture. Skin subcutaneous tissue and fascia were sharply debrided. Areas of muscle were also excised. The majority of the quadriceps muscle did appear to be viable. Soft tissue and bone were cleaned. Curettes were used to debride bone. 3 L of sterile saline were now used to thoroughly irrigate the wound. Several small bone fragments were excised. Next attention was turned to wound VAC dressing. Wound vacs were cut to fit the wound. VAC dressings were now sealed using Ioban. The seals were checked and found to be appropriate. Sterile dressings were applied. Patient placed into a knee immobilizer. He will need additional surgery for open reduction total fixation of left femur fracture. He'll also need additional surgery for soft tissue coverage. Patient was transferred back to intensive care. Gt Daily MD Apr 13, 2017 13:06
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
[2017-04-13 15:45] LABS: HEMATOCRIT 21.9 % (39.0-51.0); HEMOGLOBIN 7.4 GM/DL (13.0-17.0)
--- NOTE | 2017-04-13 16:03 | OTSOAPIP ---
TIME SESSION COMPLETED: TREATMENT TIME: 0 MINS. CHART REVIEWED. PATIENT HAVING SURGERY ON PELVIS TODAY. WILL DEFER EVALUATION UNTIL TOMORROW. Therapist: GENESIS DICK OT/L Signature on file
--- NOTE | 2017-04-13 16:38 | RADRPT ---
EXAM DATE/TIME: 04/13/2017 11:46 [facility] COMPARISON: No previous studies available for comparison. INDICATIONS : ORIF pubic symphysis. MEDICAL HISTORY : Unobtainable. SURGICAL HISTORY : Unobtainable. ENCOUNTER: Subsequent ACUITY: 3 days PAIN SCORE: Non-responsive. LOCATION: Bilateral pelvis FINDINGS: AP, inlet and outlet fluoroscopic views of the pelvis. Plate and screw fixation of the pubic symphysi s. Hardware appears well-positioned and intact. There is anatomic alignment. No significant acute bon y fracture. Surgical clips and Green catheter. CONCLUSION: 1. Pubic symphysis ORIF, as above. Kraig Avila MD on April 13, 2017 at 16:35 Board Certified Radiologist. This report was verified electronically.
--- NOTE | 2017-04-13 16:39 | RADRPT ---
EXAM DATE/TIME: 04/13/2017 12:52 [facility] COMPARISON: No previous studies available for comparison. INDICATIONS : ORIF rigth hip fracture. MEDICAL HISTORY : Unobtainable. SURGICAL HISTORY : Unobtainable. ENCOUNTER: Subsequent ACUITY: 3 days PAIN SCORE: Non-responsive. LOCATION: Right hip FINDINGS: 4 views of the right hip. Intramedullary [place] and compression screw fixation of right femoral intertro chanteric fracture. Hardware is well-positioned. There is near-anatomic alignment. No additional acut e bony fractures. CONCLUSION: 1. Status post right hip ORIF, as above. Kraig Avila MD on April 13, 2017 at 16:36 Board Certified Radiologist. This report was verified electronically.
[2017-04-13] MEDS: GENTAMICIN 80 MG PREMIX 100 ML IV SCH (18:00)
[2017-04-13] MEDS: ceFAZolin 2 GM PREMIX 50 ML IV SCH (18:00)
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
[2017-04-13] MEDS: ACETAMINOPHEN 325 MG TAB PO PRN (21:38)
[2017-04-13] MEDS ORDERED: SODIUM BICARBONATE IV SCH ×2 (23:00)
[2017-04-13] MEDS ORDERED: DEXTROSE 5% IV SCH ×2 (23:00)
[2017-04-13] MEDS ORDERED: WATE IV SCH ×2 (23:00)
[2017-04-14] VITALS (15 sets, daily range): BP systolic 111–124; BP diastolic 54–63; PULSE 102–125; RESP 14–22; TEMP 100–102; O2SAT 95–100
[2017-04-14] MEDS: cefTRIAXone INJ 1,000 MG in SODIUM CHLORIDE 0.9% INJ 100 ML IV SCH ×2 (00:04→12:41)
[2017-04-14] MEDS: VANCOMYCIN INJ 1,000 MG in SODIUM CHLOR 0.9% 250 ML INJ 250 ML IV SCH ×2 (00:53→12:42)
[2017-04-14] MEDS: ceFAZolin 2 GM PREMIX 50 ML IV SCH ×3 (02:19→17:54)
[2017-04-14] MEDS: GENTAMICIN 80 MG PREMIX 100 ML IV SCH ×3 (02:20→17:55)
[2017-04-14] MEDS: RESP: ALBUTEROL 2.5 MG/IPRATROPIUM 0.5 MG NEB (SCH) NEB ×4 (03:02→19:58)
[2017-04-14] MEDS: fentaNYL 2,500 MCG/NS 250 ML IV PRN ×3 (03:14→22:57)
[2017-04-14] MEDS: CHLORHEXIDINE GLUCONATE 2 % 1 PACK (2 CLOTHS) TOP SCH (04:00)
--- NOTE | 2017-04-14 05:17 | RADRPT ---
EXAM DATE/TIME: 04/14/2017 04:40 [facility] COMPARISON: CHEST SINGLE AP, April 13, 2017, 5:10. INDICATIONS : Shortness of breath. MEDICAL HISTORY : None. SURGICAL HISTORY : None. ENCOUNTER: Subsequent ACUITY: 4 - 6 days PAIN SCORE: Non-responsive. LOCATION: Bilateral chest FINDINGS: ET tube tip well above the jade. Gastric tube traverses the [id number]. Interval development o f consolidation in the left lower lung with lost delineation medial left hemidiaphragm. The right patricia ng is clear. Stable clavicular findings. CONCLUSION: Interval development of left lower lung consolidation. Scar Bryan MD on April 14, 2017 at 5:15 Board Certified Radiologist. This report was verified electronically.
[2017-04-14] MEDS: MIDAZOLAM 100 MG/NS 100 ML DRIP Premix IV PRN ×2 (06:02→22:57)
[2017-04-14 06:05] LABS: BASOPHIL % 0.2 % (0.0-2.0); EOSINOPHIL # 0.1 TH/MM3 (0-0.4); EOSINOPHIL % 2.1 % (0.0-4.0); HEMATOCRIT 24.5 % (39.0-51.0); LYMPH % 5.5 % (9.0-44.0); LYMPHOCYTE # 0.4 TH/MM3 (1.0-4.8); MEAN CELL VOLUME 83.8 FL (80.0-100.0); MEAN CORPUSCULAR HEMOGLOBIN 30.7 PG (27.0-34.0); MEAN PLATELET VOLUME 8.3 FL (7.0-11.0); MONO % 4.9 % (0.0-8.0); MONOCYTE # 0.3 TH/MM3 (0-0.9); NEUT % 87.3 % (16.0-70.0); PLATELET COUNT 98 TH/MM3 (150-450); RED BLOOD COUNT 2.92 MIL/MM3 (4.50-5.90); WHITE BLOOD COUNT 6.9 TH/MM3 (4.0-11.0)
[2017-04-14 06:27] LABS: ALBUMIN 1.6 GM/DL (3.4-5.0); BICARBONATE 26.4 MEQ/L (21.0-32.0); CALCIUM 6.5 MG/DL (8.5-10.1); CREATININE 0.64 MG/DL (0.60-1.30); MAGNESIUM 1.7 MG/DL (1.5-2.5)
[2017-04-14 06:47] LABS: CALCIUM-PROTEIN CORRECTED 7.9 MG/DL (8.5-10.1); TOTAL BILIRUBIN ADULT 1.7 MG/DL (0.2-1.0); TOTAL PROTEIN 4.3 GM/DL (6.4-8.2)
[2017-04-14 07:15] LABS: MEAN CORPUSCULAR HGB CONC 36.6 % (32.0-36.0)
[2017-04-14 07:21] LABS: BANDS 18 % (0-6); LYMPHOCYTES 3 % (9-44); MONOCYTES 1 % (0-8); NEUTROPHIL # MANUAL DIFF 6.4 TH/MM3 (1.8-7.7); POLYS (SEG NEUTROPHILS) 75 % (16-70)
--- NOTE | 2017-04-14 07:45 | PD.ORT.PN ---
Subjective Subjective Remarks POD 1 s/p IMN right hip POD 1 s/p ORIF pubic symphysis POD 1 s/p I&D right thigh wounds with vac change s/p right distal femur fx intubated/sedated Objective Vitals Vital Signs Date Time Temp Pulse Resp B/P (MAP) Pulse Ox O2 Delivery O2 Flow Rate FiO2 04/14/17 04:00 102.0 125 16 112/55 (74) 95 04/14/17 04:00 30 04/14/17 02:56 100 30 04/14/17 00:00 101.5 121 14 117/59 (78) 95 04/14/17 00:00 30 04/13/17 23:16 96 30 04/13/17 23:01 101.3 115 15 112/54 96 04/13/17 23:00 114 04/13/17 22:00 101.5 129 18 128/65 98 04/13/17 21:45 101.1 131 16 135/66 97 04/13/17 21:32 101.1 133 17 119/80 98 04/13/17 20:00 30 04/13/17 20:00 100.6 127 16 131/61 (84) 94 04/13/17 19:28 96 Ventilator 04/13/17 19:21 96 30 04/13/17 19:00 95 Mechanical Ventilator 30 04/13/17 16:00 30 04/13/17 16:00 96.8 92 14 110/57 (74) 98 04/13/17 15:37 100 30 04/13/17 15:00 92 04/13/17 08:26 100 30 04/13/17 08:00 100.8 109 14 127/55 (79) 98 04/13/17 08:00 30 I/O 04/13/17 04/13/17 04/13/17 04/14/17 04/14/17 04/14/17 07:00 15:00 23:00 07:00 15:00 23:00 Intake Total 2600 ml 1250 ml 400 ml 4242 ml Output Total 1330 ml 4000 ml 1350 ml 1280 ml Balance 1270 ml -2750 ml -950 ml 2962 ml Intake IV Total 2600 ml 1250 ml 2950 ml Tube Feeding 482 ml Packed Cells 400 ml 400 ml Blood Product IV Normal Saline Flush 350 ml Other 0 ml 60 ml Output Urine Total 1225 ml 800 ml 1250 ml 1250 ml Gastric Drainage Total 0 ml Drainage Total 105 ml 100 ml 30 ml Estimated Blood Loss 200 ml Other 3000 ml # Bowel Movements 0 0 0 Result Diagram: 04/14/17 0530 04/14/17 0530 Imaging Last 24 hours Impressions Chest X-Ray 04/12/17 0600 Signed Impressions: Service Date/Time: Wednesday, April 12, 2017 04:18 - CONCLUSION: The lungs are clear. Scar Bryan MD Objective Remarks Pelvis: dressings clean and dry. +drain. RLE: dressings clean and dry. +vac. good seal. +bucks Traction Assessment & Plan Assessment and Plan 1- Segmental grade 3C open RIGHT femur fracture s/p I&D with vac change - POD 1 2- Pubic Symphysis Disruption s/p ORIF - POD 1 3- Right Intertroch Hip Fx s/p IMN - POD 1 4- 1st toe fx s/p ORIF by Dr Cueva maintain dressings to pelvis and right leg maintain vac at all times maintain traction plan for OR wednesday for I&D/vac change and possible ORIF of distal femur only ortho surgery left is fixation of distal femur and wound management Olegario Morrison/Nursing Home Director [facility] Apr 14, 2017 07:45
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
[2017-04-14] MEDS ORDERED: FUROSEMIDE 40 MG/4 ML VIAL IV PUSH ONE (09:30)
[2017-04-14] MEDS: SODIUM CHLORIDE 0.9% FLUSH 10 ML FLUSH IV FLUSH SCH ×2 (10:25→20:01)
[2017-04-14] MEDS: CHLORHEXIDINE 0.12% (ORAL KIT) 15 ML CUP MT SCH ×2 (10:25→20:01)
[2017-04-14] MEDS: LACTULOSE SYRUP 20 GM/30 ML CUP PO SCH (10:25)
[2017-04-14] MEDS: BISACODYL 10 MG SUPP RECTAL PRN (10:27)
[2017-04-14] MEDS: ACETAMINOPHEN 325 MG TAB PO PRN ×2 (10:28→20:01)
[2017-04-14] MEDS: FAMOTIDINE 20 MG TAB PO SCH ×2 (10:28→20:01)
[2017-04-14] MEDS: DOCUSATE SODIUM 50 MG/SENNA 8.6 MG TAB PO SCH ×2 (10:28→20:01)
[2017-04-14] MEDS: MULTIVITAMINS/MINERALS THERAPEUTIC TAB PO SCH ×2 (10:28→20:01)
[2017-04-14] MEDS: SODIUM CHLOR 0.9% 1000 ML INJ 1,000 ML IV SCH (10:29)
[2017-04-14] MEDS: ENOXAPARIN SODIUM 30 MG/0.3 ML SYRINGE SQ SCH (12:41)
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
[2017-04-15] VITALS (15 sets, daily range): BP systolic 95–127; BP diastolic 53–72; PULSE 94–114; RESP 14–19; TEMP 99.3–100.6; O2SAT 98–100
[2017-04-15] MEDS: cefTRIAXone INJ 1,000 MG in SODIUM CHLORIDE 0.9% INJ 100 ML IV SCH ×3 (00:06→23:42)
[2017-04-15] MEDS: ENOXAPARIN SODIUM 30 MG/0.3 ML SYRINGE SQ SCH ×2 (01:14→12:47)
[2017-04-15] MEDS: VANCOMYCIN INJ 1,000 MG in SODIUM CHLOR 0.9% 250 ML INJ 250 ML IV SCH (01:14)
[2017-04-15] MEDS: ceFAZolin 2 GM PREMIX 50 ML IV SCH ×2 (02:44→08:44)
[2017-04-15] MEDS: GENTAMICIN 80 MG PREMIX 100 ML IV SCH ×3 (03:07→18:48)
[2017-04-15] MEDS: RESP: ALBUTEROL 2.5 MG/IPRATROPIUM 0.5 MG NEB (SCH) NEB ×2 (03:22→07:39)
[2017-04-15] MEDS: CHLORHEXIDINE GLUCONATE 2 % 1 PACK (2 CLOTHS) TOP SCH (03:32)
[2017-04-15 05:19] LABS: AUTOMATED NEUTROPHIL # 5.1 TH/MM3 (1.8-7.7); BASOPHIL % 0.2 % (0.0-2.0); EOSINOPHIL # 0.2 TH/MM3 (0-0.4); EOSINOPHIL % 3.8 % (0.0-4.0); HEMATOCRIT 29.3 % (39.0-51.0); HEMOGLOBIN 10.3 GM/DL (13.0-17.0); LYMPH % 9.6 % (9.0-44.0); LYMPHOCYTE # 0.6 TH/MM3 (1.0-4.8); MEAN CELL VOLUME 85.7 FL (80.0-100.0); MEAN CORPUSCULAR HEMOGLOBIN 30.1 PG (27.0-34.0); MEAN CORPUSCULAR HGB CONC 35.1 % (32.0-36.0); MEAN PLATELET VOLUME 8.5 FL (7.0-11.0); MONO % 8.6 % (0.0-8.0); MONOCYTE # 0.6 TH/MM3 (0-0.9); NEUT % 77.8 % (16.0-70.0); PLATELET COUNT 149 TH/MM3 (150-450); RED BLOOD COUNT 3.42 MIL/MM3 (4.50-5.90); RED CELL DISTRIBUTION WIDTH 17.1 % (11.6-17.2); WHITE BLOOD COUNT 6.6 TH/MM3 (4.0-11.0)
[2017-04-15 05:46] LABS: BICARBONATE 29.1 MEQ/L (21.0-32.0); CALCIUM 7.2 MG/DL (8.5-10.1); CREATININE 0.74 MG/DL (0.60-1.30)
[2017-04-15 05:57] LABS: CALCIUM-PROTEIN CORRECTED 8.2 MG/DL (8.5-10.1); TOTAL PROTEIN 5.3 GM/DL (6.4-8.2)
--- NOTE | 2017-04-15 07:21 | PD.ORT.PN ---
Subjective Subjective Remarks POD 2 s/p IMN right hip POD 2 s/p ORIF pubic symphysis POD 2 s/p I&D right thigh wounds with vac change s/p right distal femur fx intubated/sedated Objective Vitals Vital Signs Date Time Temp Pulse Resp B/P (MAP) Pulse Ox O2 Delivery O2 Flow Rate FiO2 04/15/17 04:23 98 40 04/15/17 04:00 40 04/15/17 04:00 100.3 110 14 112/56 (74) 100 04/15/17 00:00 40 04/15/17 00:00 100.1 98 19 104/57 (73) 99 04/14/17 23:50 100 40 04/14/17 23:03 104 04/14/17 20:00 101.1 109 22 111/63 (79) 100 Arterial Line 04/14/17 20:00 40 04/14/17 19:58 100 40 04/14/17 19:15 93 Mechanical Ventilator 90 04/14/17 16:00 100.0 105 15 119/54 (75) 100 04/14/17 16:00 40 04/14/17 16:00 105 04/14/17 15:17 100 40 04/14/17 14:00 102 04/14/17 12:00 40 04/14/17 12:00 117 04/14/17 12:00 101.5 117 14 124/58 (80) 100 04/14/17 11:04 100 40 04/14/17 10:00 118 04/14/17 08:07 100 40 04/14/17 08:00 109 04/14/17 08:00 40 04/14/17 08:00 102.0 109 14 118/62 (80) 96 I/O 04/14/17 04/14/17 04/14/17 04/15/17 04/15/17 04/15/17 07:00 15:00 23:00 07:00 15:00 23:00 Intake Total 4242 ml 6552 ml 518 ml 1476 ml Output Total 1280 ml 0 ml 3765.0 ml 1685 ml Balance 2962 ml 6552 ml -3247.0 ml -209 ml Intake IV Total 2950 ml 6552 ml 150 ml 1476 ml Tube Feeding 482 ml 248 ml Packed Cells 400 ml Blood Product IV Normal Saline Flush 350 ml Other 60 ml 120 ml Output Urine Total 1250 ml 3350 ml 1400 ml Gastric Drainage Total 0 ml Tube Feeding Residual Discard 0 ml 0 ml Drainage Total 30 ml 415 ml 285 ml # Bowel Movements 0 0 Result Diagram: 04/15/17 0406 04/15/17 0406 Imaging Last 24 hours Impressions Chest X-Ray 04/12/17 0600 Signed Impressions: Service Date/Time: Wednesday, April 12, 2017 04:18 - CONCLUSION: The lungs are clear. Scar Bryan MD Objective Remarks Pelvis: dressings clean and dry. +drain. RLE: dressings clean and dry. +vac. good seal. +bucks Traction Assessment & Plan Assessment and Plan 1- Segmental grade 3C open RIGHT femur fracture s/p I&D with vac change - POD 2 2- Pubic Symphysis Disruption s/p ORIF - POD 2 3- Right Intertroch Hip Fx s/p IMN - POD 2 4- 1st toe fx s/p ORIF by Dr Cueva maintain dressings to pelvis and right leg maintain vac at all times maintain traction sign consents plan for surgery tomorrow for fixation of distal femur and possible skin grafting of thigh. Olegario Morrison/Staff Reporter [facility] Apr 15, 2017 07:21
[2017-04-15] MEDS: CHLORHEXIDINE 0.12% (ORAL KIT) 15 ML CUP MT SCH ×2 (08:00→20:00)
[2017-04-15 08:11] LABS: BANDS 34 % (0-6); LYMPHOCYTES 6 % (9-44); METAMYELOCYTES 1 % (0-1); MONOCYTES 8 % (0-8); NEUTROPHIL # MANUAL DIFF 5.5 TH/MM3 (1.8-7.7); POLYS (SEG NEUTROPHILS) 49 % (16-70)
[2017-04-15] MEDS: SODIUM CHLORIDE 0.9% FLUSH 10 ML FLUSH IV FLUSH SCH ×2 (08:44→21:00)
[2017-04-15] MEDS: LACTULOSE SYRUP 20 GM/30 ML CUP PO SCH (08:45)
[2017-04-15] MEDS: MULTIVITAMINS/MINERALS THERAPEUTIC TAB PO SCH ×2 (08:45→21:32)
[2017-04-15] MEDS: FAMOTIDINE 20 MG TAB PO SCH ×2 (08:45→21:32)
[2017-04-15] MEDS: DOCUSATE SODIUM 50 MG/SENNA 8.6 MG TAB PO SCH ×2 (08:45→21:32)
[2017-04-15] MEDS: fentaNYL 2,500 MCG/NS 250 ML IV PRN ×2 (09:13→18:47)
[2017-04-15] MEDS: SODIUM CHLOR 0.9% 1000 ML INJ 1,000 ML IV SCH ×2 (09:13→18:47)
[2017-04-15] MEDS: MAGNESIUM HYDROXIDE SUSP 30 ML CUP PO SCH (12:17)
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
[2017-04-15] MEDS: MIDAZOLAM 100 MG/NS 100 ML DRIP Premix IV PRN (18:47)
--- NOTE | 2017-04-15 20:05 | PD.POD ---
Subjective Podiatric Problems Right hallux comminuted proximal phalanx fracture s/p pinning of right hallux and repair of laceration, Anay 04/11/17 Objective Vital Signs Vital Signs Date Time Temp Pulse Resp B/P (MAP) Pulse Ox O2 Delivery O2 Flow Rate FiO2 04/15/17 16:09 100 40 04/15/17 16:00 40 04/15/17 16:00 99.7 97 17 105/57 (73) 100 04/15/17 16:00 109 04/15/17 14:00 97 04/15/17 12:00 100.4 101 14 95/53 (67) 100 04/15/17 12:00 100.4 101 14 95/53 (67) 100 04/15/17 12:00 101 04/15/17 12:00 40 04/15/17 11:22 100 40 04/15/17 10:00 102 04/15/17 08:00 114 04/15/17 08:00 40 04/15/17 08:00 100.6 114 14 127/72 (90) 100 04/15/17 07:40 100 40 04/15/17 07:00 93 Mechanical Ventilator 90 04/15/17 04:23 98 40 04/15/17 04:00 40 04/15/17 04:00 100.3 110 14 112/56 (74) 100 04/15/17 00:00 40 04/15/17 00:00 100.1 98 19 104/57 (73) 99 04/14/17 23:50 100 40 04/14/17 23:03 104 Coded Allergies: No Known Allergies (Unverified , 04/10/17) Exam-Podiatry Remarks sutures intact medially. Pin site clean. Slow capillary refill. Toe less dusky than before, possibly venous. Cool skin temperature, not cold compared to remaining digits Assessment & Plan A/P Right hallux comminuted proximal phalanx fracture s/p pinning of right hallux and repair of laceration, Anay 04/11/17 Will continue to evaluate to assess viability of toe Keep clean, dry Nenita Painter DPM Apr 15, 2017 20:05
[2017-04-16] VITALS (15 sets, daily range): BP systolic 107–161; BP diastolic 62–93; PULSE 96–124; RESP 14–20; TEMP 98.4–100.2; O2SAT 95–100
[2017-04-16] MEDS: MAGNESIUM HYDROXIDE SUSP 30 ML CUP PO SCH ×2 (01:18→13:00)
[2017-04-16] MEDS: GENTAMICIN 80 MG PREMIX 100 ML IV SCH ×3 (01:18→18:13)
[2017-04-16] MEDS: CHLORHEXIDINE GLUCONATE 2 % 1 PACK (2 CLOTHS) TOP SCH (04:00)
[2017-04-16 05:00] LABS: AUTOMATED NEUTROPHIL # 5.8 TH/MM3 (1.8-7.7); BASOPHIL % 0.2 % (0.0-2.0); EOSINOPHIL # 0.3 TH/MM3 (0-0.4); EOSINOPHIL % 3.8 % (0.0-4.0); HEMATOCRIT 24.2 % (39.0-51.0); HEMOGLOBIN 8.5 GM/DL (13.0-17.0); LYMPH % 7.6 % (9.0-44.0); LYMPHOCYTE # 0.6 TH/MM3 (1.0-4.8); MEAN CELL VOLUME 85.9 FL (80.0-100.0); MEAN PLATELET VOLUME 8.6 FL (7.0-11.0); MONO % 8.6 % (0.0-8.0); MONOCYTE # 0.6 TH/MM3 (0-0.9); NEUT % 79.8 % (16.0-70.0); PLATELET COUNT 180 TH/MM3 (150-450); RED BLOOD COUNT 2.82 MIL/MM3 (4.50-5.90); RED CELL DISTRIBUTION WIDTH 16.6 % (11.6-17.2); WHITE BLOOD COUNT 7.3 TH/MM3 (4.0-11.0)
[2017-04-16 05:20] LABS: BICARBONATE 28.2 MEQ/L (21.0-32.0); CALCIUM 7.3 MG/DL (8.5-10.1); CREATININE 0.66 MG/DL (0.60-1.30)
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
[2017-04-16 05:51] LABS: CALCIUM-PROTEIN CORRECTED 8.3 MG/DL (8.5-10.1); TOTAL PROTEIN 5.2 GM/DL (6.4-8.2)
[2017-04-16] MEDS: fentaNYL 2,500 MCG/NS 250 ML IV PRN (06:11)
[2017-04-16] MEDS: SODIUM CHLOR 0.9% 1000 ML INJ 1,000 ML IV SCH (06:48)
[2017-04-16 08:02] LABS: BANDS 11 % (0-6); LYMPHOCYTES 3 % (9-44); METAMYELOCYTES 2 % (0-1); MONOCYTES 7 % (0-8); MYELOCYTES 1 % (0-0); NEUTROPHIL # MANUAL DIFF 6.4 TH/MM3 (1.8-7.7); POLYS (SEG NEUTROPHILS) 74 % (16-70)
--- NOTE | 2017-04-16 08:03 | PD.ORT.PN ---
Subjective Subjective Remarks stable, no new changes Objective Vitals Vital Signs Date Time Temp Pulse Resp B/P (MAP) Pulse Ox O2 Delivery O2 Flow Rate FiO2 04/16/17 04:00 99.7 96 20 111/67 (82) 100 04/16/17 04:00 40 04/16/17 03:31 100 40 04/16/17 00:01 100 40 04/16/17 00:00 40 04/16/17 00:00 100.2 114 17 140/77 (98) 100 04/15/17 23:00 96 04/15/17 22:24 100 40 04/15/17 20:53 100 40 04/15/17 20:00 97 04/15/17 20:00 99.3 94 14 102/57 (72) 100 04/15/17 20:00 40 04/15/17 19:00 94 Mechanical Ventilator 40 04/15/17 16:09 100 40 04/15/17 16:00 40 04/15/17 16:00 99.7 97 17 105/57 (73) 100 04/15/17 16:00 109 04/15/17 14:00 97 04/15/17 12:00 100.4 101 14 95/53 (67) 100 04/15/17 12:00 100.4 101 14 95/53 (67) 100 04/15/17 12:00 101 04/15/17 12:00 40 04/15/17 11:22 100 40 04/15/17 10:00 102 04/15/17 08:00 114 04/15/17 08:00 40 04/15/17 08:00 100.6 114 14 127/72 (90) 100 I/O 04/15/17 04/15/17 04/15/17 04/16/17 04/16/17 04/16/17 07:00 15:00 23:00 07:00 15:00 23:00 Intake Total 1476 ml 1500 ml 1628 ml 1670 ml Output Total 1685 ml 0 ml 2780 ml 1967 ml Balance -209 ml 1500 ml -1152 ml -297 ml Intake IV Total 1476 ml 1500 ml 1350 ml 1450 ml Tube Feeding 278 ml 120 ml Other 100 ml Output Urine Total 1400 ml 2250 ml 1750 ml Tube Feeding Residual Discard 0 ml 0 ml Drainage Total 285 ml 530 ml 217 ml # Bowel Movements 1 0 Result Diagram: 04/16/175 04/16/17 040 Imaging Last 24 hours Impressions Chest X-Ray 04/12/17 0600 Signed Impressions: Service Date/Time: Wednesday, April 12, 2017 04:18 - CONCLUSION: The lungs are clear. Scar Bryan MD Objective Remarks Pelvis: dressings clean and dry. +drain. RLE: dressings clean and dry. +vac. good seal. +bucks Traction Assessment & Plan Assessment and Plan 1- Segmental grade 3C open RIGHT femur fracture s/p I&D with vac change - POD 3 2- Pubic Symphysis Disruption s/p ORIF - POD 3 3- Right Intertroch Hip Fx s/p IMN - POD 3 4- 1st toe fx s/p ORIF by Dr Cueva maintain dressings to pelvis and right leg maintain vac at all times maintain traction sign consents Nothing by mouth Surgery this morning with Dr. Abimbola Bender,Isai FORRESTER Apr 16, 2017 08:03
[2017-04-16] MEDS: CHLORHEXIDINE 0.12% (ORAL KIT) 15 ML CUP MT SCH ×2 (08:11→20:00)
--- NOTE | 2017-04-16 08:20 | EKG ---
Date Performed: 04/16/2017 Time Performed: 06:24:02 PTAGE: 46 years EKG: Sinus tachycardia. Normal ECG except for rate NO PREVIOUS TRACING DOCTOR: Jorgito Brizuela Interpretating Date/Time 04/16/2017 08:19:58
[2017-04-16] MEDS: FAMOTIDINE 20 MG TAB PO SCH ×2 (09:16→21:13)
[2017-04-16] MEDS: MULTIVITAMINS/MINERALS THERAPEUTIC TAB PO SCH ×2 (09:16→21:13)
[2017-04-16] MEDS: DOCUSATE SODIUM 50 MG/SENNA 8.6 MG TAB PO SCH ×2 (09:16→21:00)
[2017-04-16 11:18] LABS: PROTHROMBIN TIME - PATIENT 10.1 SEC (9.8-11.6)
[2017-04-16] MEDS ORDERED: ONDANSETRON HCL 4 MG/2 ML VIAL IV PUSH ONE (12:00)
[2017-04-16] MEDS ORDERED: LIDOCAINE HCL 1% PF 5 ML SYRINGE OTHER ONE (12:00)
[2017-04-16] MEDS ORDERED: PROPOFOL 200 MG/20 ML AMP IV ONE (12:00)
[2017-04-16] MEDS ORDERED: DEXAMETHASONE SOD PHOS 4 MG/ML VIAL IV ONE (12:00)
[2017-04-16] MEDS ORDERED: ROCURONIUM INJ 50 MG/5 ML SYRINGE IV PUSH ONE (12:00)
[2017-04-16] MEDS ORDERED: ACETAMINOPHEN 1000 MG/100 ML 0 ML IV ONE (12:21)
[2017-04-16] MEDS ORDERED: SUGAMMADEX SODIUM 200 MG/2 ML VIAL IV PUSH ONE (12:52)
[2017-04-16] MEDS ORDERED: TOBRAMYCIN 1200 MG VIAL (for ortho/sterile core) OTHER ONE ×2 (12:54→13:12)
[2017-04-16] MEDS ORDERED: VANCOMYCIN HCL 1000 MG VIAL ONE ×3 (12:54→14:10)
[2017-04-16] MEDS ORDERED: GENTAMICIN SULFATE 80 MG/2 ML VIAL ONE (12:55)
[2017-04-16] MEDS: SODIUM CHLORIDE 0.9% FLUSH 10 ML FLUSH IV FLUSH SCH ×2 (13:09→21:14)
[2017-04-16] MEDS: cefTRIAXone INJ 1,000 MG in SODIUM CHLORIDE 0.9% INJ 100 ML IV SCH (13:10)
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
[2017-04-16 14:45] LABS: HEMOGLOBIN 8.6 GM/DL (13.0-17.0)
[2017-04-16] MEDS ORDERED: Post-op Orders (for Pharmacy) XX ONE (15:00)
--- NOTE | 2017-04-16 15:06 | PD.OP ---
cc: Gt Daily MD Operative Report Date of Surgery: Apr 16, 2017 Preoperative Diagnosis: Open comminuted right distal femoral shaft fracture with large lacerations right thigh Postoperative Diagnosis: Procedure: Irrigation and debridement of open right femur fractures, open reduction internal fixation distal femoral shaft fracture, placement of antibiotic beads, complex closure of laceration 30 cm in length, application wound VAC dressing Surgeon: Gt Daily Blade Bender Furnace Tender(s): LÓPEZ Greco PA-C The surgical procedure was assisted by my physician assistant manager of operations. My P.A. presence was necessary throughout this case for the manipulation and positioning of the surgical extremity. My P.A. was assisting me throughout the duration of this procedure. The skill set of a physician assistant manager of operations was medically necessary to complete this procedure. During the surgical case the agriscience technology instructor was working at the back table and the physician assistant manager of operations was directly assisting me. Operation and Findings: Informed consent was obtained, operative site was marked. Patient was brought to the OR, placed on OR table, and given IV sedation with GETA. IV antibiotics were administered and timeout procedure was performed. The operative leg was prepped with alcohol, followed with Hibiclens, draped in usual sterile fashion. A timeout procedure was performed. The procedure began irrigation debridement of open fracture. The traumatic lacerations communicated down the fracture site. Skin subcutaneous tissue fascia muscle and bone were sharply debrided with curettes, rongeur, and scalpel. An excisional debridement was performed. Overall the tissue appeared relatively healthy. Small areas of necrotic tissue removed. Soft tissue and bone were now thoroughly irrigated with sterile saline. Next attention was turned towards open reduction total fixation of distal femur. A 5-inch incision was made over the lateral aspect of the distal femur. Subcutaneous tissue was dissected with Bovie. Iliotibial band was split in line with fibers. At this point the fracture was visualized. Traction was applied. Fracture was manipulated. The fracture reduced into relatively well. There was significant missing bone present due to the traumatic nature of the wound. At this point attention was turned to plate placement. A lateral condylar plate was selected and attached to the insertion handle jig. The plate was placed underneath the vastus lateralis. Steinmann pins were used to hold the plate to bone. Multiplanar fluoroscopy confirmed appropriate placement of plate. Fracture tenaculums were used to compress plate to bone. Multiple 4.5 cortical screws were now placed in percutaneous fashion through the plate. The plate was compressed to bone. Multiple locking screws were now placed in the distal segment of the distal femur. Additional locking screws were placed into the femoral shaft. All screws were predrilled and premeasured for appropriate length. Final fluoroscopy revealed excellent alignment of fracture with well-placed hardware. Wound was thoroughly irrigated. Next the surgical incisions were closed.Fascia was closed with #1 PDS. Subcutaneous tissue was closed with 3-0 PDS. Skin was closed with 3-0 nylon. At this point attention was turned and by the placement. There was a sizable defect at the fracture site. 20 cc of stimulant bone cement was mixed with 2 g of vancomycin and 2 g of tobramycin. Cement was made into a medium-sized beads. Once the beads were set the beads were packed into the fracture site. Next attention was turned towards closure. A 30 cm of the traumatic laceration were closed. Subcutaneous tissue was reapproximated with 3-0 PDS. Skin was closed with 3-0 nylon. A comminution retention suture and vertical mattress sutures were utilized. Upon completion of closure the inferior wound was completely closed. The proximal wound was approximately 30% closed. There was minimal skin tension after closure. Next attention was turned to wound VAC placement. An extra-large wound VAC was cut to fit the open wound. An incisional VAC was extended over the closed laceration and surgical incision. VAC dressing was sealed appropriately. Sterile dressings were applied. The patient was placed into a knee immobilizer and transferred to intensive care in critical condition. Needle and sponge counts were correct. Gt Daily MD Apr 16, 2017 15:06
--- NOTE | 2017-04-16 15:08 | RADRPT ---
EXAM DATE/TIME: 04/16/2017 14:33 [facility] COMPARISON: CTA RUNOFF W 3D RECON, April 10, 2017, 22:36. ANGIOGRAM, RIGHT LEG, April 11, 2017, 1:37. CHEST SINGLE AP, April 16, 2017, 4:11. INDICATIONS : Right femur open reduction internal fixation. MEDICAL HISTORY : femur fracture, wound vac x 2, traction, pelvic fracture SURGICAL HISTORY : Right shoulder. Wound vac. Pelvis. Right hip. ENCOUNTER: Subsequent ACUITY: 1 day PAIN SCORE: Non-responsive. LOCATION: Right femur FINDINGS: Multiple views of the right femur demonstrate interval plating of the patient's severely comminuted m id femoral fracture. The alignment of the femur is excellent. Incidental note is made of a Viabon covered stent within the superficial femoral artery. Note is also made of intramedullary [place] and dynamic compression screw across the patient's femoral ne ck fracture. CONCLUSION: 1. Excellent alignment of the patient's femur fractures post plating. Chandler Flaherty MD on April 16, 2017 at 14:58 Board Certified Radiologist. This report was verified electronically.
[2017-04-16] MEDS ORDERED: MIDAZOLAM HCL 2 MG/2 ML VIAL ONE (16:26)
[2017-04-16] MEDS: LACTULOSE SYRUP 20 GM/30 ML CUP PO SCH (16:50)
[2017-04-16] MEDS: MIDAZOLAM 100 MG/NS 100 ML DRIP Premix IV PRN (17:02)
[2017-04-16] MEDS: ceFAZolin 2 GM PREMIX 50 ML IV SCH (17:14)
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
[2017-04-17] VITALS (19 sets, daily range): BP systolic 108–149; BP diastolic 58–82; PULSE 80–120; RESP 13–16; TEMP 99.2–100.2; O2SAT 98–100
[2017-04-17] MEDS: ceFAZolin 2 GM PREMIX 50 ML IV SCH ×3 (01:25→16:44)
[2017-04-17] MEDS: MAGNESIUM HYDROXIDE SUSP 30 ML CUP PO SCH ×2 (01:34→11:49)
[2017-04-17] MEDS: GENTAMICIN 80 MG PREMIX 100 ML IV SCH ×3 (02:21→16:45)
[2017-04-17] MEDS: HYDROmorphone HCL PF 2 MG/ML VIAL IV PRN (02:42)
[2017-04-17] MEDS: PROPOFOL 1000 MG/100 ML IV PRN ×5 (03:11→21:18)
[2017-04-17] MEDS: CHLORHEXIDINE GLUCONATE 2 % 1 PACK (2 CLOTHS) TOP SCH (04:00)
[2017-04-17 05:00] LABS: BASOPHIL % 0.1 % (0.0-2.0); EOSINOPHIL % 0.1 % (0.0-4.0); HEMATOCRIT 23.8 % (39.0-51.0); HEMOGLOBIN 8.3 GM/DL (13.0-17.0); LYMPH % 3.9 % (9.0-44.0); LYMPHOCYTE # 0.3 TH/MM3 (1.0-4.8); MEAN CELL VOLUME 86.3 FL (80.0-100.0); MEAN CORPUSCULAR HEMOGLOBIN 29.9 PG (27.0-34.0); MEAN CORPUSCULAR HGB CONC 34.6 % (32.0-36.0); MEAN PLATELET VOLUME 8.2 FL (7.0-11.0); MONO % 8.6 % (0.0-8.0); MONOCYTE # 0.7 TH/MM3 (0-0.9); NEUT % 87.3 % (16.0-70.0); PLATELET COUNT 286 TH/MM3 (150-450); RED BLOOD COUNT 2.76 MIL/MM3 (4.50-5.90); RED CELL DISTRIBUTION WIDTH 16.7 % (11.6-17.2)
[2017-04-17] MEDS: fentaNYL 2,500 MCG/NS 250 ML IV PRN ×2 (05:05→16:44)
[2017-04-17] MEDS: MIDAZOLAM 100 MG/NS 100 ML DRIP Premix IV PRN (05:06)
[2017-04-17 05:26] LABS: BICARBONATE 26.9 MEQ/L (21.0-32.0); CALCIUM 7.4 MG/DL (8.5-10.1); CREATININE 0.71 MG/DL (0.60-1.30)
[2017-04-17 05:45] LABS: CALCIUM-PROTEIN CORRECTED 8.3 MG/DL (8.5-10.1); TOTAL PROTEIN 5.4 GM/DL (6.4-8.2)
[2017-04-17 06:07] LABS: BANDS 4 % (0-6); LYMPHOCYTES 5 % (9-44); METAMYELOCYTES 3 % (0-1); MONOCYTES 5 % (0-8); MYELOCYTES 2 % (0-0); NEUTROPHIL # MANUAL DIFF 7.2 TH/MM3 (1.8-7.7); POLYS (SEG NEUTROPHILS) 81 % (16-70)
[2017-04-17 06:08] LABS: ACANTHOCYTES OCC (NORMAL)
[2017-04-17 06:09] LABS: SPHEROCYTES 1+ (NORMAL)
--- NOTE | 2017-04-17 07:04 | PD.ORT.PN ---
Subjective Subjective Remarks POD 4 s/p IMN right hip POD 4 s/p ORIF pubic symphysis POD 1 s/p I&D right thigh wounds with distal wound closure and partial closure proximal wound POD 1 s/p ORIF right distal femur with Abx bead placement intubated/sedated Objective Vitals Vital Signs Date Time Temp Pulse Resp B/P (MAP) Pulse Ox O2 Delivery O2 Flow Rate FiO2 04/17/17 06:00 91 04/17/17 04:09 98 40 04/17/17 04:00 91 04/17/17 04:00 40 04/17/17 04:00 100.0 91 14 108/58 (75) 100 04/17/17 02:00 112 04/17/17 00:02 100 40 04/17/17 00:00 40 04/17/17 00:00 96 04/17/17 00:00 100.2 98 14 122/68 (86) 99 04/16/17 22:00 96 04/16/17 20:10 100 40 04/16/17 20:00 40 04/16/17 20:00 99.8 98 14 116/68 (84) 99 04/16/17 20:00 103 04/16/17 19:00 100 Mechanical Ventilator 40 04/16/17 18:00 112 04/16/17 16:22 95 40 04/16/17 16:00 40 04/16/17 16:00 98.4 100 15 161/93 (115) 100 04/16/17 16:00 124 04/16/17 12:00 40 04/16/17 12:00 98.6 101 18 109/63 (78) 100 04/16/17 12:00 101 04/16/17 11:41 100 40 04/16/17 10:00 96 04/16/17 08:00 100 04/16/17 08:00 40 04/16/17 08:00 98.6 100 20 107/62 (77) 100 04/16/17 07:52 100 40 I/O 04/16/17 04/16/17 04/16/17 04/17/17 04/17/17 04/17/17 07:00 15:00 23:00 07:00 15:00 23:00 Intake Total 1670 ml 576 ml 1281 ml 1380 ml Output Total 1967 ml 1275 ml 1220 ml 70 ml Balance -297 ml -699 ml 61 ml 1310 ml Intake IV Total 1450 ml 526 ml 391 ml 1110 ml Tube Feeding 120 ml 230 ml Other 100 ml 50 ml 890 ml 40 ml Output Urine Total 1750 ml 1255 ml 980 ml Drainage Total 217 ml 20 ml 40 ml 70 ml Estimated Blood Loss 200 ml # Bowel Movements 0 0 Result Diagram: 04/17/17 0348 04/17/17 0348 Other Results Laboratory Tests Test 04/16/17 11:02 Prothromb Time International Ratio 1.0 RATIO Prothrombin Time 10.1 SEC (9.8-11.6) Imaging Last 24 hours Impressions Chest X-Ray 04/12/17 0600 Signed Impressions: Service Date/Time: Wednesday, April 12, 2017 04:18 - CONCLUSION: The lungs are clear. Scar Bryan MD Objective Remarks Pelvis: dressings clean and dry. RLE: dressings clean and dry. +vac. good seal. +knee brace Assessment & Plan Assessment and Plan 1- Segmental grade 3C open RIGHT femur fracture s/p I&D with ORIF and Abx bead placement - POD 1 2- Pubic Symphysis Disruption s/p ORIF - POD 4 3- Right Intertroch Hip Fx s/p IMN - POD 4 4- 1st toe fx s/p ORIF by Dr Cueva maintain vac on right leg at all times vac settings: 125mmHg, 3:1 maintain knee brace right knee at all times NWB BLE pelvic drain DCd in OR Wednesday daily dressing changes to pelvis no dressing changes to right femur or thigh All bones have been fixated at this time. only remaining surgery will be for skin grafting of right upper thigh. lower thigh wound was successfully closed. will plan for possible skin grafting wed/ with Dr Del Valle. Olegario Morrison/Field Nurse USAMA Apr 17, 2017 07:04
[2017-04-17] MEDS: CHLORHEXIDINE 0.12% (ORAL KIT) 15 ML CUP MT SCH ×2 (08:00→20:00)
[2017-04-17] MEDS: LACTULOSE SYRUP 20 GM/30 ML CUP PO SCH (08:35)
[2017-04-17] MEDS: FAMOTIDINE 20 MG TAB PO SCH ×2 (08:36→21:13)
[2017-04-17] MEDS: DOCUSATE SODIUM 50 MG/SENNA 8.6 MG TAB PO SCH ×2 (08:36→21:17)
[2017-04-17] MEDS: MULTIVITAMINS/MINERALS THERAPEUTIC TAB PO SCH ×2 (08:36→21:17)
[2017-04-17] MEDS: SODIUM CHLORIDE 0.9% FLUSH 10 ML FLUSH IV FLUSH SCH ×2 (09:00→21:18)
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
[2017-04-17] MEDS: FUROSEMIDE 40 MG/4 ML VIAL IV PUSH SCH (11:49)
[2017-04-17] MEDS: ENOXAPARIN SODIUM 30 MG/0.3 ML SYRINGE SQ SCH (13:52)
[2017-04-17] MEDS: QUEtiapine FUMARATE 25 MG TAB G-TUBE SCH ×2 (13:53→21:17)
[2017-04-17] MEDS: PROMETHAZINE HCL 25 MG TAB PO PRN (14:02)
[2017-04-17] MEDS: ACETAMINOPHEN 325 MG TAB PO PRN (14:02)
[2017-04-17] MEDS: HALOPERIDOL LACTATE 5 MG/ML AMP IV PUSH PRN (18:00)
[2017-04-18] VITALS (15 sets, daily range): BP systolic 128–157; BP diastolic 64–87; PULSE 105–117; RESP 11–25; TEMP 99.9–100.4; O2SAT 95–100
[2017-04-18] MEDS: ceFAZolin 2 GM PREMIX 50 ML IV SCH ×3 (01:17→15:40)
[2017-04-18] MEDS: MAGNESIUM HYDROXIDE SUSP 30 ML CUP PO SCH (01:17)
[2017-04-18] MEDS: ENOXAPARIN SODIUM 30 MG/0.3 ML SYRINGE SQ SCH (01:19)
[2017-04-18] MEDS: GENTAMICIN 80 MG PREMIX 100 ML IV SCH ×3 (01:38→18:02)
[2017-04-18] MEDS: fentaNYL 2,500 MCG/NS 250 ML IV PRN (01:39)
[2017-04-18] MEDS: PROPOFOL 1000 MG/100 ML IV PRN ×2 (02:14→06:27)
[2017-04-18] MEDS: CHLORHEXIDINE GLUCONATE 2 % 1 PACK (2 CLOTHS) TOP SCH (04:00)
[2017-04-18] MEDS: QUEtiapine FUMARATE 25 MG TAB G-TUBE SCH ×3 (05:00→20:42)
[2017-04-18 05:14] LABS: AUTOMATED NEUTROPHIL # 8.9 TH/MM3 (1.8-7.7); BASOPHIL % 0.3 % (0.0-2.0); EOSINOPHIL # 0.4 TH/MM3 (0-0.4); EOSINOPHIL % 3.5 % (0.0-4.0); HEMATOCRIT 25.1 % (39.0-51.0); HEMOGLOBIN 8.7 GM/DL (13.0-17.0); LYMPH % 10.3 % (9.0-44.0); LYMPHOCYTE # 1.2 TH/MM3 (1.0-4.8); MEAN CELL VOLUME 86.3 FL (80.0-100.0); MEAN CORPUSCULAR HGB CONC 34.8 % (32.0-36.0); MONO % 10.3 % (0.0-8.0); MONOCYTE # 1.2 TH/MM3 (0-0.9); NEUT % 75.6 % (16.0-70.0); PLATELET COUNT 467 TH/MM3 (150-450); RED CELL DISTRIBUTION WIDTH 17.4 % (11.6-17.2); WHITE BLOOD COUNT 11.8 TH/MM3 (4.0-11.0)
[2017-04-18 05:26] LABS: BICARBONATE 32.9 MEQ/L (21.0-32.0); CALCIUM 7.5 MG/DL (8.5-10.1); CREATININE 0.78 MG/DL (0.60-1.30)
[2017-04-18] MEDS: ACETAMINOPHEN 325 MG TAB PO PRN (05:41)
[2017-04-18 06:11] LABS: BANDS 1 % (0-6); BASOPHILS 1 % (0-2); CORRECTED NUCLEATED RBC 1 /100 WBC (0-0); LYMPHOCYTES 7 % (9-44); METAMYELOCYTES 4 % (0-1); MONOCYTES 17 % (0-8); MYELOCYTES 2 % (0-0); NEUTROPHIL # MANUAL DIFF 8.6 TH/MM3 (1.8-7.7); NUCLEATED RED BLOOD CELL 1 (0-0); POLYS (SEG NEUTROPHILS) 66 % (16-70)
[2017-04-18 06:14] LABS: SPHEROCYTES 1+ (NORMAL)
--- NOTE | 2017-04-18 07:38 | PD.ORT.PN ---
Subjective Subjective Remarks stable, no new changes Objective Vitals Vital Signs Date Time Temp Pulse Resp B/P (MAP) Pulse Ox O2 Delivery O2 Flow Rate FiO2 04/18/17 06:00 113 04/18/17 04:00 35 04/18/17 04:00 108 04/18/17 04:00 100.4 108 14 132/74 (93) 98 04/18/17 03:18 99 35 04/18/17 02:00 105 04/18/17 00:00 35 04/18/17 00:00 112 04/18/17 00:00 100.2 112 14 141/73 (95) 100 04/17/17 23:36 100 35 04/17/17 22:00 107 04/17/17 20:15 99 40 04/17/17 20:00 40 04/17/17 20:00 100.0 113 14 149/82 (104) 100 04/17/17 20:00 113 04/17/17 18:00 108 04/17/17 16:00 119 04/17/17 16:00 40 04/17/17 16:00 100.2 120 16 145/77 (99) 99 04/17/17 15:02 100 40 04/17/17 14:00 80 04/17/17 12:06 40 04/17/17 12:00 114 04/17/17 12:00 40 04/17/17 12:00 99.9 113 15 131/75 (93) 100 04/17/17 11:46 99 40 04/17/17 10:00 102 04/17/17 08:00 99 04/17/17 08:00 40 04/17/17 08:00 99.2 98 13 132/68 (89) 100 04/17/17 07:47 100 40 I/O 04/17/17 04/17/17 04/17/17 04/18/17 04/18/17 04/18/17 07:00 15:00 23:00 07:00 15:00 23:00 Intake Total 1380 ml 250 ml 982 ml 2156 ml Output Total 70 ml 3780 ml 150 ml Balance 1310 ml 250 ml -2798 ml 2006 ml Intake IV Total 1110 ml 250 ml 630 ml 1600 ml Tube Feeding 230 ml 252 ml 456 ml Tube Irrigant 100 ml 100 ml Other 40 ml Output Urine Total 3750 ml Drainage Total 70 ml 30 ml 150 ml Result Diagram: 04/18/1742904/18/17 0430 Imaging Last 24 hours Impressions Chest X-Ray 04/12/17 0600 Signed Impressions: Service Date/Time: Wednesday, April 12, 2017 04:18 - CONCLUSION: The lungs are clear. Scar Bryan MD Objective Remarks Pelvis: dressings clean and dry. RLE: dressings clean and dry. +vac. good seal. +knee brace Assessment & Plan Assessment and Plan 1- Segmental grade 3C open RIGHT femur fracture s/p I&D with ORIF and Abx bead placement - POD 2 2- Pubic Symphysis Disruption s/p ORIF - POD 5 3- Right Intertroch Hip Fx s/p IMN - POD 5 4- 1st toe fx s/p ORIF by Dr Cueva maintain vac on right leg at all times vac settings: 125mmHg, 3:1 Discontinue knee immobilizer NWB BLE daily dressing changes to pelvis no dressing changes to right femur or thigh All bones have been fixated at this time. only remaining surgery will be for skin grafting of right upper thigh. lower thigh wound was successfully closed. will plan for possible skin grafting Wednesday or Wednesday with Dr Del Valle. Isai Bender Jr. Apr 18, 2017 07:38
[2017-04-18] MEDS: LACTULOSE SYRUP 20 GM/30 ML CUP PO SCH (08:26)
[2017-04-18] MEDS: FUROSEMIDE 40 MG/4 ML VIAL IV PUSH SCH (08:27)
[2017-04-18] MEDS: DOCUSATE SODIUM 50 MG/SENNA 8.6 MG TAB PO SCH ×2 (08:27→20:43)
[2017-04-18] MEDS: HALOPERIDOL LACTATE 5 MG/ML AMP IV PUSH PRN (08:27)
[2017-04-18] MEDS: FAMOTIDINE 20 MG TAB PO SCH ×2 (08:27→20:43)
[2017-04-18] MEDS: MULTIVITAMINS/MINERALS THERAPEUTIC TAB PO SCH ×2 (08:27→20:43)
[2017-04-18] MEDS: SODIUM CHLORIDE 0.9% FLUSH 10 ML FLUSH IV FLUSH SCH ×2 (09:00→21:00)
[2017-04-18] MEDS ORDERED: MORPHINE SULFATE 8 MG/ML INJ IV PUSH PRN (10:00)
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
[2017-04-18] MEDS: oxyCODONE/ACETAMINOPHEN 5 MG/325 MG TAB PO PRN (20:43)
--- NOTE | 2017-04-18 21:36 | PD.POD ---
Subjective Podiatric Problems Right hallux comminuted proximal phalanx fracture s/p pinning of right hallux and repair of laceration, Anay 04/11/17 Past Med/Surg/Social History Social History Smoking Status: Current Every Day Smoker Objective Vital Signs Vital Signs Date Time Temp Pulse Resp B/P (MAP) Pulse Ox O2 Delivery O2 Flow Rate FiO2 04/18/17 20:00 110 04/18/17 20:00 100.4 110 23 157/87 (110) 97 04/18/17 18:00 107 04/18/17 16:00 110 04/18/17 16:00 99.9 106 21 140/84 (102) 96 04/18/17 14:00 108 04/18/17 12:00 116 04/18/17 12:00 100.2 117 25 128/64 (85) 95 04/18/17 10:00 114 04/18/17 09:05 95 Nasal Cannula 2.00 04/18/17 08:02 100 35 04/18/17 08:02 35 04/18/17 08:00 114 04/18/17 08:00 100.0 115 11 146/77 (100) 96 04/18/17 08:00 35 04/18/17 06:00 113 04/18/17 04:00 35 04/18/17 04:00 108 04/18/17 04:00 100.4 108 14 132/74 (93) 98 04/18/17 03:18 99 35 04/18/17 02:00 105 04/18/17 00:00 35 04/18/17 00:00 112 04/18/17 00:00 100.2 112 14 141/73 (95) 100 04/17/17 23:36 100 35 04/17/17 22:00 107 Coded Allergies: No Known Allergies (Unverified , 04/10/17) Exam-Podiatry Remarks Toe feels warmer to touch today than at previous exam. Ecchymosis diffusely to right hallux. Pin site clean to distal right hallux. No sign of infection. Questionable viability to skin of dorsal right hallux IPJ area and incision line. Assessment & Plan A/P Right hallux comminuted proximal phalanx fracture s/p pinning of right hallux and repair of laceration, Anay 04/11/17 Will continue to evaluate to assess viability of toe Keep clean, dry Nenita Painter DPM Apr 18, 2017 21:36
[2017-04-19] VITALS (16 sets, daily range): BP systolic 135–149; BP diastolic 79–88; PULSE 103–118; RESP 16–29; TEMP 98.1–99.9; O2SAT 94–99
[2017-04-19] MEDS: MAGNESIUM HYDROXIDE SUSP 30 ML CUP PO SCH ×2 (00:51→11:53)
[2017-04-19] MEDS: ENOXAPARIN SODIUM 30 MG/0.3 ML SYRINGE SQ SCH ×3 (01:00→11:58)
[2017-04-19] MEDS: GENTAMICIN 80 MG PREMIX 100 ML IV SCH ×3 (01:57→18:16)
[2017-04-19] MEDS: ceFAZolin 2 GM PREMIX 50 ML IV SCH ×3 (01:58→17:30)
[2017-04-19] MEDS: CHLORHEXIDINE GLUCONATE 2 % 1 PACK (2 CLOTHS) TOP SCH (04:00)
[2017-04-19 05:05] LABS: AUTOMATED NEUTROPHIL # 12.9 TH/MM3 (1.8-7.7); BASOPHIL % 0.2 % (0.0-2.0); EOSINOPHIL # 0.2 TH/MM3 (0-0.4); EOSINOPHIL % 1.3 % (0.0-4.0); HEMATOCRIT 29.6 % (39.0-51.0); HEMOGLOBIN 10.2 GM/DL (13.0-17.0); LYMPH % 7.9 % (9.0-44.0); LYMPHOCYTE # 1.2 TH/MM3 (1.0-4.8); MEAN CELL VOLUME 86.2 FL (80.0-100.0); MEAN CORPUSCULAR HEMOGLOBIN 29.6 PG (27.0-34.0); MEAN CORPUSCULAR HGB CONC 34.3 % (32.0-36.0); MEAN PLATELET VOLUME 7.9 FL (7.0-11.0); MONO % 7.1 % (0.0-8.0); MONOCYTE # 1.1 TH/MM3 (0-0.9); NEUT % 83.5 % (16.0-70.0); PLATELET COUNT 611 TH/MM3 (150-450); RED BLOOD COUNT 3.44 MIL/MM3 (4.50-5.90); RED CELL DISTRIBUTION WIDTH 17.2 % (11.6-17.2); WHITE BLOOD COUNT 15.5 TH/MM3 (4.0-11.0)
[2017-04-19 05:28] LABS: BICARBONATE 28.1 MEQ/L (21.0-32.0); CALCIUM 8.1 MG/DL (8.5-10.1); CREATININE 0.69 MG/DL (0.60-1.30)
[2017-04-19] MEDS: QUEtiapine FUMARATE 25 MG TAB G-TUBE SCH ×3 (06:01→21:55)
[2017-04-19] MEDS: oxyCODONE/ACETAMINOPHEN 5 MG/325 MG TAB PO PRN (06:02)
[2017-04-19 06:37] LABS: BANDS 4 % (0-6); LYMPHOCYTES 5 % (9-44); METAMYELOCYTES 3 % (0-1); MONOCYTES 14 % (0-8); MYELOCYTES 4 % (0-0); NEUTROPHIL # MANUAL DIFF 12.1 TH/MM3 (1.8-7.7); POLYS (SEG NEUTROPHILS) 67 % (16-70)
--- NOTE | 2017-04-19 07:22 | PD.ORT.PN ---
Subjective Subjective Remarks POD 6 s/p IMN right hip POD 6 s/p ORIF pubic symphysis POD 3 s/p I&D right thigh wounds with distal wound closure and partial closure proximal wound POD 3 s/p ORIF right distal femur with Abx bead placement extubated. awake. states resting comfortably Objective Vitals Vital Signs Date Time Temp Pulse Resp B/P (MAP) Pulse Ox O2 Delivery O2 Flow Rate FiO2 04/19/17 06:00 109 04/19/17 04:00 99.9 103 20 143/79 (100) 94 04/19/17 04:00 108 04/19/17 02:00 104 04/19/17 00:00 99.5 107 19 146/85 (105) 98 04/19/17 00:00 105 04/18/17 22:00 114 04/18/17 20:00 110 04/18/17 20:00 100.4 110 23 157/87 (110) 97 04/18/17 18:00 107 04/18/17 16:00 110 04/18/17 16:00 99.9 106 21 140/84 (102) 96 04/18/17 14:00 108 04/18/17 12:00 116 04/18/17 12:00 100.2 117 25 128/64 (85) 95 04/18/17 10:00 114 04/18/17 09:05 95 Nasal Cannula 2.00 04/18/17 08:02 100 35 04/18/17 08:02 35 04/18/17 08:00 114 04/18/17 08:00 100.0 115 11 146/77 (100) 96 04/18/17 08:00 35 I/O 04/18/17 04/18/17 04/18/17 04/19/17 04/19/17 04/19/17 07:00 15:00 23:00 07:00 15:00 23:00 Intake Total 2156 ml 445 ml 2427 ml 510 ml Output Total 150 ml 4480 ml 1900 ml Balance 2006 ml 445 ml -2053 ml -1390 ml Intake Oral 200 ml 240 ml IV Total 1600 ml 445 ml 2227 ml 270 ml Tube Feeding 456 ml Tube Irrigant 100 ml Output Urine Total 4300 ml 1900 ml Drainage Total 150 ml 180 ml 0 ml # Bowel Movements 2 Result Diagram: 04/19/17 0346 04/19/17 0346 Imaging Last 24 hours Impressions Chest X-Ray 04/12/17 0600 Signed Impressions: Service Date/Time: Wednesday, April 12, 2017 04:18 - CONCLUSION: The lungs are clear. Scar Bryan MD Objective Remarks Pelvis: dressings clean and dry. RLE: dressings clean and dry. +vac. good seal. +knee brace Assessment & Plan Assessment and Plan 1- Segmental grade 3C open RIGHT femur fracture s/p I&D with ORIF and Abx bead placement - POD 3 2- Pubic Symphysis Disruption s/p ORIF - POD 6 3- Right Intertroch Hip Fx s/p IMN - POD 6 4- 1st toe fx s/p ORIF by Dr Cueva maintain vac on right leg at all times vac settings: 125mmHg, 3:1 Discontinue knee immobilizer NWB BLE daily dressing changes to pelvis no dressing changes to right femur or thigh All bones have been fixated at this time. only remaining surgery will be for skin grafting of right upper thigh. lower thigh wound was successfully closed. will plan for possible skin grafting Wednesday npo after MN sign consents surgery tomorrow Olegario Morrison/Electric Cutter Operator PA Apr 19, 2017 07:22
[2017-04-19] MEDS: FAMOTIDINE 20 MG TAB PO SCH ×2 (08:51→21:56)
[2017-04-19] MEDS: DOCUSATE SODIUM 50 MG/SENNA 8.6 MG TAB PO SCH ×2 (08:51→21:56)
[2017-04-19] MEDS: LISINOPRIL 20 MG TAB PO SCH ×2 (08:51→21:56)
[2017-04-19] MEDS: MULTIVITAMINS/MINERALS THERAPEUTIC TAB PO SCH ×2 (08:51→21:55)
[2017-04-19] MEDS: HYDROmorphone HCL PF 2 MG/ML VIAL IV PRN (08:52)
[2017-04-19] MEDS: SODIUM CHLORIDE 0.9% FLUSH 10 ML FLUSH IV FLUSH SCH ×2 (08:53→22:00)
[2017-04-19] MEDS: fentaNYL 50 MCG/HR PATCH T-DERMAL SCH (11:57)
--- NOTE | 2017-04-19 13:31 | HHI.CCPN ---
Subjective Brief History This is a 47-year-old male [place] [facility] [place] active bleeding from open femur wound on the right side so the tourniquet was up applied by EMS patient , was neurologically intact GCS 15, he has a right femur open wound 2010 cm anteriorly and one other 1010 cm open wound in the groin area to the pelvis open, initially he was hemodynamically normal then became hypotensive in the trauma bay he was orotracheally intubated by the ER physician his FAST exam was negative, the imaging in the trauma bay showed an open femur fracture right side , a shearing type injury of the pelvis, after orotracheal intubation patient received 4 units of PRBC, TXA, and FFP with-this measures we were able to stabilize the patient-so that he was brought to the CT scan for his trauma workup, this x-ray in the trauma bay show disruption of the pubic symphysis-so that pelvic binder was applied Patient was diagnosed with unstable pelvic fracture with disruption of the pubic rami and sacroiliac joints as well as midshaft open, comminuted femur fracture In addition patient went for angiogram which revealed contusion of the right SFA with hemorrhage into subintimal space and occlusion of the vessel in the adductor canal due to elevation of the intimal flap This was treated expertly by Dr. Yuan Flaherty by placing a Viabon stent and reestablishing the blood flow ROS - General 24 Hour Review/Hospital Course 04/11-status post stenting of superficial femoral artery web search evaluator hours Patient continues to have strong dopplerable pulse, and capillary refill Remains hemodynamically normal Low urine output last 2 hours-bolus was given we'll continue to monitor hgb 13-\ Following commands, opening eyes Condition is in the OR with orthopedic surgeon-washout of open pelvic and femur fracture-depending on manipulation in the OR-A need a follow-up CTA to assess patency of his SFA stent Also for his open great toe fracture on the right side podiatric surgery was consulted Patient is on IV antibiotics-is will be continued for now 04/12/17 Patient has been stable for the last 24 hours Remains intubated ventilated and sedated Hemoglobin is slowly decreasing but this is combination of third space and re- equilibration of the fluids and compartments Patient does have unstable fracture and initial attempt to loosen up his abdominal binder resulted in the hypotension and some drop of hemoglobin so abdominal binder needs to stay on As far as the leg is concerned, endovascular stent has been placed and blood flow is well established with palpable distal pulses The sooner the patient has femur ex-fix the better, for it would be catastrophe if SFA got transected by the femur edges Wound VAC in position Patient slowly improving Help from medical shopping investigator is greatly appreciated in management of this difficult trauma 04/13/17 Patient has hemodynamically stabilized Underwent today ORIF of the fractured pelvis Apparently there is too much swelling to fix the right femur yet Bilateral breath sounds remains on the ventilator Sedated on propofol fentanyl and Versed Abdomen is soft enteral feedings will be restarted and tomorrow Lovenox will be added to the regimen if the bleeding from the pelvic repair is decreased 04/14/17 Patient stable at this time Remains on fentanyl for pain and then propofol for sedation requiring fairly high-dose of the same to the point that he needed some Versed in addition Will try to decrease and wean little the propofol and depending how patient reacts to this, might change him to Versed altogether Hemodynamically patient is stable Bilateral breath sounds on 40% FiO2 assist control mode. Theoretically patient could be extubated at this time but I believe in face of pending femur ORIF surgery and repeated trips to the operating room with orthopedics and washouts it is probably safer to simply have patient intubated for another day or 2 Left lower lobe infiltrate-it should be noted that this patient aspirated not only gastric contents but also pieces of his mandible into the left mainstem bronchus and had to be retrieved the day he came to us Abdomen soft enteral feeds tolerated Both legs are well-perfused patient has palpable dorsalis pedis and posterior tibial pulses He has a large wound on the right leg and wound VAC is in position As noted by Dr. Reid, the right leg is indeed much warmer than the left one and this is probably hyperperfusion combined with inflammation We should however watch carefully for development of any infection Renal function preserved patient probably somewhat volume overloaded at this time 04/15/17 Patient sedated on propofol and fentanyl Hemodynamically stable Bilateral breath sounds remains ventilatory dependent on assist control mode Theoretically patient could be weaned toward extubation however he is going tomorrow for final washout and ORIF of the right femur and closure of the wound Abdomen is soft Patient has a palpable distal pulses in the right leg and this was well- perfused. Right greater toe appears to be somewhat purplish and ischemic but we 'll see how that does Podiatry consultation is greatly appreciated Well patient's white count is not significantly elevated patient has a significant left shift with increasing bandemia and I'm not sure what else could contribute to this, other than the right leg. Leg is warm and chance of this being infected is significant Plan is tomorrow to stabilize the right femur either by ORIF or external fixation and closed the wound 04/16/17 Patient stable at this time Sedated on fentanyl and Versed Bilateral breath sounds remains on assist control ventilation Hemodynamically stable Hemoglobin 8.7 g/dL Abdomen is soft enteral feedings and tolerated Patient scheduled for to undergo right femur fixation and closure of the wound by orthopedics Foot is warm with palpable distal pulses Last positive culture on was Staphylococcus hominis which is a skin contaminant 04/17/17 Vital signs stable Patient is sedated with fentanyl propofol and Versed Apparently he was restless through the night and propofol was added to the regimen At this point we gone a wean off sedation way, the patient and extubated the patient in the next day or two Bilateral breath sounds on 40% FiO2 with good PO2 FiO2 gradient Bilateral pulmonary expansion Wean to extubate Abdomen soft enteral feeds tolerated Patient underwent yesterday ORIF of the right femur and will likely undergo Wednesday or Wednesday skin grafting of the skin 04/18/17 Patient doing well this morning Tolerated CPAP trial very well and extubated successfully DC propofol/fentanyl Patient is still somewhat confused doesn't track very well but doing better It takes about 2-20 hours for the propofol to leave the system and hence slowly recovery is expected Start patient on intermittent analgesia and by mouth medications Bilateral good breath sounds Hemodynamically stable Abdomen soft hypoactive bowel sounds patient had bowel movements Plan Start on by mouth diet provided swallowing is intact Activity as per orthopedics and at this point patient can get out of bed to chair Aggressive respiratory therapy Patient will be case management issue as far as disposition 04/19/17 Patient is awake alert and responding to simple questions appropriately Hemodynamically stable Bilateral breath sounds good inspiratory effort Abdomen is soft patient started on diet Transferred to floor at this time Patient doesn't require ICU care any more Objective Vital Signs Date Time Temp Pulse Resp B/P (MAP) Pulse Ox O2 Delivery O2 Flow Rate FiO2 04/19/17 13:10 28 04/19/17 07:48 96 04/19/17 06:00 109 04/19/17 04:00 99.9 143/79 (100) 1/28/18 09:05 Nasal Cannula 2.00 04/18/17 08:02 35 Intake and Output 04/19/17 04/19/17 04/20/17 08:00 16:00 00:00 Intake Total 510 ml Output Total 1900 ml Balance -1390 ml Result Diagram: 04/19/17 0346 04/19/17 0346 Other Results Microbiology Date/Time Source Procedure Growth Status 04/19/17 09:25 Stool Stool Stool Occult Blood ([facility]) - Final HEMOCCULT NEGATIVE Complete Disinhibition Score: 17.50 Aggression Score: 14.00 Lability Score: 14.00 Agitated Behavior Total Score: 16 Exam PANTOMIMIST Awake alert oriented moving all 4 extremities no gross neurologic deficit Maribell Coma Scale varying between 13 and 14 Hemodynamic/Cardiac Hemodynamically fully intact Pulmonary/Respiratory Bilateral good breath sounds good inspiratory effort Abdomen/GI Nutrition Abdomen soft Renal/I&O Preserved renal function Assessment and Plan Plan pain control and sedation Mechanical ventilation resuscitate patient to endpoints monitor uo Continue to monitor patient pulses Injury to SFA was discussed with Dr. Trejo- from vascular trauma Patient on DVT prophylaxis-is high risk for DVT patients family was updated postop. Attestation Transfer to floor Critical care 32 minutes Sofya Jackson MD Apr 19, 2017 13:31
[2017-04-19] MEDS: METHOCARBAMOL 500 MG TAB PO SCH ×2 (14:16→21:57)
[2017-04-20] VITALS (16 sets, daily range): BP systolic 121–161; BP diastolic 73–98; PULSE 92–125; RESP 18–28; TEMP 99.1–100; O2SAT 94–98
[2017-04-20] MEDS: ENOXAPARIN SODIUM 30 MG/0.3 ML SYRINGE SQ SCH ×2 (01:00→17:21)
[2017-04-20] MEDS: MAGNESIUM HYDROXIDE SUSP 30 ML CUP PO SCH ×2 (01:00→13:00)
[2017-04-20] MEDS: PROMETHAZINE HCL 25 MG TAB PO PRN (01:38)
[2017-04-20] MEDS: ceFAZolin 2 GM PREMIX 50 ML IV SCH ×3 (01:40→17:21)
[2017-04-20] MEDS: GENTAMICIN 80 MG PREMIX 100 ML IV SCH ×2 (01:42→09:04)
[2017-04-20] MEDS: CHLORHEXIDINE GLUCONATE 2 % 1 PACK (2 CLOTHS) TOP SCH (04:00)
[2017-04-20 04:25] LABS: AUTOMATED NEUTROPHIL # 20.4 TH/MM3 (1.8-7.7); BASOPHIL % 0.2 % (0.0-2.0); EOSINOPHIL % 0.1 % (0.0-4.0); HEMATOCRIT 33.7 % (39.0-51.0); HEMOGLOBIN 11.7 GM/DL (13.0-17.0); LYMPH % 4.3 % (9.0-44.0); MEAN CELL VOLUME 85.7 FL (80.0-100.0); MEAN CORPUSCULAR HEMOGLOBIN 29.8 PG (27.0-34.0); MEAN CORPUSCULAR HGB CONC 34.7 % (32.0-36.0); MONO % 3.8 % (0.0-8.0); MONOCYTE # 0.9 TH/MM3 (0-0.9); NEUT % 91.6 % (16.0-70.0); PLATELET COUNT 936 TH/MM3 (150-450); RED BLOOD COUNT 3.93 MIL/MM3 (4.50-5.90); RED CELL DISTRIBUTION WIDTH 17.6 % (11.6-17.2); WHITE BLOOD COUNT 22.3 TH/MM3 (4.0-11.0)
[2017-04-20 05:22] LABS: CALCIUM 8.9 MG/DL (8.5-10.1); CREATININE 0.92 MG/DL (0.60-1.30)
[2017-04-20] MEDS: METHOCARBAMOL 500 MG TAB PO SCH ×3 (05:31→23:15)
[2017-04-20] MEDS: QUEtiapine FUMARATE 25 MG TAB G-TUBE SCH ×3 (05:31→23:14)
[2017-04-20 06:55] LABS: BANDS 4 % (0-6); BASOPHILS 1 % (0-2); LYMPHOCYTES 6 % (9-44); METAMYELOCYTES 2 % (0-1); MONOCYTES 4 % (0-8); MYELOCYTES 5 % (0-0); NEUTROPHIL # MANUAL DIFF 19.8 TH/MM3 (1.8-7.7); POLYS (SEG NEUTROPHILS) 78 % (16-70)
[2017-04-20] MEDS: LISINOPRIL 20 MG TAB PO SCH ×2 (09:03→23:14)
[2017-04-20] MEDS: DOCUSATE SODIUM 50 MG/SENNA 8.6 MG TAB PO SCH ×2 (09:04→23:14)
[2017-04-20] MEDS: FAMOTIDINE 20 MG TAB PO SCH ×2 (09:04→23:15)
[2017-04-20] MEDS: SODIUM CHLORIDE 0.9% FLUSH 10 ML FLUSH IV FLUSH SCH ×2 (09:05→23:10)
[2017-04-20] MEDS: MULTIVITAMINS/MINERALS THERAPEUTIC TAB PO SCH ×2 (09:05→23:15)
[2017-04-20] MEDS ORDERED: BUPIVACAINE/EPINEPHRINE 0.25% 50 ML VIAL ONE (10:28)
[2017-04-20] MEDS ORDERED: MINERAL OIL 10 ML VIAL ONE (10:28)
[2017-04-20] MEDS ORDERED: LIDOCAINE 2% JELLY 30 ML TUBE ONE (10:30)
[2017-04-20] MEDS ORDERED: METOPROLOL TARTRATE 25 MG TAB PO PRN (11:15)
[2017-04-20] MEDS ORDERED: LACTATED RINGER'S 1000 ML IV PRN (11:15)
[2017-04-20] MEDS ORDERED: CHLORHEXIDINE GLUCONATE 2 % 1 PACK (2 CLOTHS) TOPICAL PRN (11:15)
[2017-04-20] MEDS ORDERED: SODIUM CHLORID 0.9% 500 ML IV PRN (11:15)
[2017-04-20] MEDS ORDERED: ceFAZolin INJ 1,000 MG VIAL IV ONE ×2 (11:27→12:00)
[2017-04-20] MEDS ORDERED: GENTAMICIN SULFATE 80 MG/2 ML VIAL ONE (11:32)
--- NOTE | 2017-04-20 11:57 | PD.OP ---
cc: Gt Daily MD Operative Report Date of Surgery: Apr 20, 2017 Preoperative Diagnosis: Open wound right proximal thigh Postoperative Diagnosis: Procedure: Irrigation and excisional debridement of right proximal thigh wound, split- thickness skin graft from left thigh to right thigh, application wound VAC dressing Anesthesia: Gen. Surgeon: Gt Daily Door Captain(s): LÓPEZ Love PA-C The surgical procedure was assisted by my physician assistant fitness manager. My P.A. presence was necessary throughout this case for the manipulation and positioning of the surgical extremity. My P.A. was assisting me throughout the duration of this procedure. The skill set of a physician assistant fitness manager was medically necessary to complete this procedure. During the surgical case the operating room surgical technician was working at the back table and the physician assistant fitness manager was directly assisting me. Operation and Findings: Boni returns to the operating room for treatment of right thigh wound. Patient was brought to operating room and given IV sedation and general anesthesia. Timeout procedure was performed. IV antibiotics were administered. The operative extremity was prepped with alcohol followed by Hibiclens and draped in usual sterile fashion. Procedure began with irrigation and debridement of the open wound on right proximal thigh.. Skin subcutaneous tissue and fascia were sharply debrided. There were areas of necrosis of the sartorius muscle. A portion of this muscle was excised. Overall the wound was healthy. A excisional debridement was performed. Remaining Muscle appeared be healthy and viable. There was early granulation tissue forming. Wound was now thoroughly irrigated with sterile saline. Next was turned to skin grafting. Using the Frantz dermatome set at 0.015 skin graft was obtained from the thigh. Skin graft was now meshed at a ratio of 1- 1.5. The skin graft was now placed over the open wound. Skin graft was stapled into position. The open wound was completely covered. Skin graft was now covered with Xeroform. A VAC dressing was cut to fit over the wound. VAC dressing was sealed appropriately. A compressive dressing was applied. VAC dressing was set on continuous. Patient was awakened and transferred to recovery in stable condition. Gt Daily MD Apr 20, 2017 11:57
[2017-04-20] MEDS ORDERED: PROPOFOL 200 MG/20 ML AMP IV ONE (12:00)
[2017-04-20] MEDS ORDERED: LIDOCAINE HCL 1% PF 5 ML SYRINGE OTHER ONE (12:00)
[2017-04-20] MEDS ORDERED: PHENYLEPH/NS 1000 MCG/10 ML SYR IV ONE (12:00)
[2017-04-20] MEDS ORDERED: ONDANSETRON HCL 4 MG/2 ML VIAL IV ONE (12:00)
[2017-04-20] MEDS ORDERED: DO NOT ADM ANY ANTICOAGULANT DRUGS PRN (12:11)
[2017-04-20] MEDS ORDERED: MIDAZOLAM HCL 2 MG/2 ML VIAL ONE (12:16)
[2017-04-20] MEDS ORDERED: MORPHINE SULFATE 4 MG/ML INJ ONE (12:17)
--- NOTE | 2017-04-20 15:10 | HHI.CCPN ---
Subjective Brief History This is a 47-year-old male involved in an [facility] [place], was active bleeding from open femur wound on the right side so the tourniquet was up applied by EMS patient , was neurologically intact GCS 15, he has a right femur open wound 2010 cm anteriorly and one other 1010 cm open wound in the groin area to the pelvis open, initially he was hemodynamically normal then became hypotensive in the trauma bay he was orotracheally intubated by the ER physician his FAST exam was negative, the imaging in the trauma bay showed an open femur fracture right side , a shearing type injury of the pelvis, after orotracheal intubation patient received 4 units of PRBC, TXA, and FFP with-this measures we were able to stabilize the patient-so that he was brought to the CT scan for his trauma workup, this x-ray in the trauma bay show disruption of the pubic symphysis-so that pelvic binder was applied Patient was diagnosed with unstable pelvic fracture with disruption of the pubic rami and sacroiliac joints as well as midshaft open, comminuted femur fracture In addition patient went for angiogram which revealed contusion of the right SFA with hemorrhage into subintimal space and occlusion of the vessel in the adductor canal due to elevation of the intimal flap This was treated expertly by Dr. Yuan Flaherty by placing a Viabon stent and reestablishing the blood flow ROS - General 24 Hour Review/Hospital Course 04/11-status post stenting of superficial femoral artery tape controlled machine stitcher hours Patient continues to have strong dopplerable pulse, and capillary refill Remains hemodynamically normal Low urine output last 2 hours-bolus was given we'll continue to monitor hgb 13-\ Following commands, opening eyes Condition is in the OR with orthopedic surgeon-washout of open pelvic and femur fracture-depending on manipulation in the OR-A need a follow-up CTA to assess patency of his SFA stent Also for his open great toe fracture on the right side podiatric surgery was consulted Patient is on IV antibiotics-is will be continued for now 04/12/17 Patient has been stable for the last 24 hours Remains intubated ventilated and sedated Hemoglobin is slowly decreasing but this is combination of third space and re- equilibration of the fluids and compartments Patient does have unstable fracture and initial attempt to loosen up his abdominal binder resulted in the hypotension and some drop of hemoglobin so abdominal binder needs to stay on As far as the leg is concerned, endovascular stent has been placed and blood flow is well established with palpable distal pulses The sooner the patient has femur ex-fix the better, for it would be catastrophe if SFA got transected by the femur edges Wound VAC in position Patient slowly improving Help from medical veneer stacker is greatly appreciated in management of this difficult trauma 04/13/17 Patient has hemodynamically stabilized Underwent today ORIF of the fractured pelvis Apparently there is too much swelling to fix the right femur yet Bilateral breath sounds remains on the ventilator Sedated on propofol fentanyl and Versed Abdomen is soft enteral feedings will be restarted and tomorrow Lovenox will be added to the regimen if the bleeding from the pelvic repair is decreased 04/14/17 Patient stable at this time Remains on fentanyl for pain and then propofol for sedation requiring fairly high-dose of the same to the point that he needed some Versed in addition Will try to decrease and wean little the propofol and depending how patient reacts to this, might change him to Versed altogether Hemodynamically patient is stable Bilateral breath sounds on 40% FiO2 assist control mode. Theoretically patient could be extubated at this time but I believe in face of pending femur ORIF surgery and repeated trips to the operating room with orthopedics and washouts it is probably safer to simply have patient intubated for another day or 2 Left lower lobe infiltrate-it should be noted that this patient aspirated not only gastric contents but also pieces of his mandible into the left mainstem bronchus and had to be retrieved the day he came to us Abdomen soft enteral feeds tolerated Both legs are well-perfused patient has palpable dorsalis pedis and posterior tibial pulses He has a large wound on the right leg and wound VAC is in position As noted by Dr. Reid, the right leg is indeed much warmer than the left one and this is probably hyperperfusion combined with inflammation We should however watch carefully for development of any infection Renal function preserved patient probably somewhat volume overloaded at this time 04/15/17 Patient sedated on propofol and fentanyl Hemodynamically stable Bilateral breath sounds remains ventilatory dependent on assist control mode Theoretically patient could be weaned toward extubation however he is going tomorrow for final washout and ORIF of the right femur and closure of the wound Abdomen is soft Patient has a palpable distal pulses in the right leg and this was well- perfused. Right greater toe appears to be somewhat purplish and ischemic but we 'll see how that does Podiatry consultation is greatly appreciated Well patient's white count is not significantly elevated patient has a significant left shift with increasing bandemia and I'm not sure what else could contribute to this, other than the right leg. Leg is warm and chance of this being infected is significant Plan is tomorrow to stabilize the right femur either by ORIF or external fixation and closed the wound 04/16/17 Patient stable at this time Sedated on fentanyl and Versed Bilateral breath sounds remains on assist control ventilation Hemodynamically stable Hemoglobin 8.7 g/dL Abdomen is soft enteral feedings and tolerated Patient scheduled for to undergo right femur fixation and closure of the wound by orthopedics Foot is warm with palpable distal pulses Last positive culture on was Staphylococcus hominis which is a skin contaminant 04/17/17 Vital signs stable Patient is sedated with fentanyl propofol and Versed Apparently he was restless through the night and propofol was added to the regimen At this point we gone a wean off sedation way, the patient and extubated the patient in the next day or two Bilateral breath sounds on 40% FiO2 with good PO2 FiO2 gradient Bilateral pulmonary expansion Wean to extubate Abdomen soft enteral feeds tolerated Patient underwent yesterday ORIF of the right femur and will likely undergo Wednesday or Wednesday skin grafting of the skin 04/18/17 Patient doing well this morning Tolerated CPAP trial very well and extubated successfully DC propofol/fentanyl Patient is still somewhat confused doesn't track very well but doing better It takes about 2-20 hours for the propofol to leave the system and hence slowly recovery is expected Start patient on intermittent analgesia and by mouth medications Bilateral good breath sounds Hemodynamically stable Abdomen soft hypoactive bowel sounds patient had bowel movements Plan Start on by mouth diet provided swallowing is intact Activity as per orthopedics and at this point patient can get out of bed to chair Aggressive respiratory therapy Patient will be case management issue as far as disposition 04/19/17 Patient is awake alert and responding to simple questions appropriately Hemodynamically stable Bilateral breath sounds good inspiratory effort Abdomen is soft patient started on diet Transferred to floor at this time Patient doesn't require ICU care any more 04/20/17 Patient doing well Awake alert and oriented Coughing up thick phlegm and he requested the some cough syrup yesterday but I believe it's better to allow the patient to cough this up rather than cause atelectasis and possibly develop pneumonia Bilateral good breath sounds Patient will be taken out of bed to chair Patient is physically still in the ICU but there are no beds available on the floor so he is not requiring this level of care Will need to rehabilitation placement and case management aware of it from day 1 Objective Vital Signs Date Time Temp Pulse Resp B/P (MAP) Pulse Ox O2 Delivery O2 Flow Rate FiO2 04/20/17 13:29 104 123/78 (93) 04/20/17 12:58 100.0 22 04/20/17 12:30 100 Nasal Cannula 2 04/20/17 08:34 21 Intake and Output 04/20/17 04/20/17 04/21/17 08:00 16:00 00:00 Intake Total 100 ml 900 ml Output Total 1500 ml 1075 ml Balance -1400 ml -175 ml Result Diagram: 04/20/1731504/20/17315 Other Results Microbiology Date/Time Source Procedure Growth Status 04/19/17 09:25 Stool Stool Stool Occult Blood ([facility]) - Final HEMOCCULT NEGATIVE Complete Disinhibition Score: 14.00 Aggression Score: 14.00 Lability Score: 14.00 Agitated Behavior Total Score: 14 Assessment and Plan Plan pain control and sedation Mechanical ventilation resuscitate patient to endpoints monitor uo Continue to monitor patient pulses Injury to SFA was discussed with Dr. Trejo- from vascular trauma Patient on DVT prophylaxis-is high risk for DVT patients family was updated postop. Sofya Jackson MD Apr 20, 2017 15:10
[2017-04-20] MEDS: LACTATED RINGER'S 1000 ML INJ 1,000 ML IV SCH ×2 (17:26→23:11)
[2017-04-20] MEDS: HYDROmorphone HCL PF 2 MG/ML VIAL IV PRN (23:24)
[2017-04-21] VITALS (8 sets, daily range): BP systolic 108–131; BP diastolic 61–76; PULSE 98–107; RESP 20–25; TEMP 98–100.2; O2SAT 95–100
[2017-04-21] MEDS: MAGNESIUM HYDROXIDE SUSP 30 ML CUP PO SCH ×2 (01:56→13:49)
[2017-04-21] MEDS: ENOXAPARIN SODIUM 30 MG/0.3 ML SYRINGE SQ SCH ×2 (01:57→13:50)
[2017-04-21] MEDS: ceFAZolin 2 GM PREMIX 50 ML IV SCH ×3 (02:00→17:59)
[2017-04-21 03:56] LABS: AUTOMATED NEUTROPHIL # 15.2 TH/MM3 (1.8-7.7); BASOPHIL # 0.1 TH/MM3 (0-0.2); BASOPHIL % 0.5 % (0.0-2.0); EOSINOPHIL # 0.2 TH/MM3 (0-0.4); EOSINOPHIL % 1.2 % (0.0-4.0); HEMATOCRIT 29.6 % (39.0-51.0); LYMPH % 9.8 % (9.0-44.0); LYMPHOCYTE # 1.8 TH/MM3 (1.0-4.8); MEAN CORPUSCULAR HEMOGLOBIN 29.4 PG (27.0-34.0); MEAN CORPUSCULAR HGB CONC 33.8 % (32.0-36.0); MEAN PLATELET VOLUME 7.8 FL (7.0-11.0); MONO % 6.6 % (0.0-8.0); MONOCYTE # 1.2 TH/MM3 (0-0.9); NEUT % 81.9 % (16.0-70.0); PLATELET COUNT 913 TH/MM3 (150-450); RED BLOOD COUNT 3.41 MIL/MM3 (4.50-5.90); RED CELL DISTRIBUTION WIDTH 18.1 % (11.6-17.2); WHITE BLOOD COUNT 18.5 TH/MM3 (4.0-11.0)
[2017-04-21 03:58] LABS: BICARBONATE 28.5 MEQ/L (21.0-32.0); CALCIUM 8.3 MG/DL (8.5-10.1); CREATININE 0.99 MG/DL (0.60-1.30)
[2017-04-21] MEDS: CHLORHEXIDINE GLUCONATE 2 % 1 PACK (2 CLOTHS) TOP SCH ×2 (04:00→19:51)
[2017-04-21] MEDS: QUEtiapine FUMARATE 25 MG TAB G-TUBE SCH ×3 (06:28→22:04)
[2017-04-21] MEDS: METHOCARBAMOL 500 MG TAB PO SCH ×3 (06:28→22:04)
--- NOTE | 2017-04-21 09:26 | PD.ORT.PN ---
Subjective Subjective Remarks stable, no new changes Objective Vitals Vital Signs Date Time Temp Pulse Resp B/P (MAP) Pulse Ox O2 Delivery O2 Flow Rate FiO2 04/21/17 08:53 98 Nasal Cannula 2.00 04/21/17 04:15 99.1 107 20 131/76 (94) 98 04/21/17 00:00 100.2 100 21 130/69 (89) 100 04/20/17 23:54 18 04/20/17 22:19 98 Nasal Cannula 2.00 04/20/17 20:40 99.3 111 20 124/81 (95) 96 04/20/17 20:00 108 04/20/17 16:16 92 04/20/17 16:00 99.6 95 18 127/73 (91) 98 04/20/17 13:29 104 123/78 (93) 04/20/17 12:58 100.0 107 22 126/84 (98) 04/20/17 12:30 108 19 136/76 (96) 100 Nasal Cannula 2 04/20/17 12:15 110 12 140/76 (97) 100 Nasal Cannula 2 04/20/17 12:13 99.1 112 14 147/79 (101) 99 Nasal Cannula 2 04/20/17 12:00 106 I/O 04/20/17 04/20/17 04/20/17 04/21/17 04/21/17 04/21/17 07:00 15:00 23:00 07:00 15:00 23:00 Intake Total 100 ml 1000 ml 390 ml 360 ml Output Total 1500 ml 1075 ml 350 ml 850 ml Balance -1400 ml -75 ml 40 ml -490 ml Intake Oral 100 ml 340 ml 360 ml IV Total 1000 ml 50 ml Output Urine Total 1500 ml 70 ml 350 ml 850 ml Estimated Blood Loss 5 ml Other 1000 ml # Bowel Movements 1 Result Diagram: 04/21/17 0233 04/21/17 0233 Imaging Last 24 hours Impressions Chest X-Ray 04/12/17 0600 Signed Impressions: Service Date/Time: Wednesday, April 12, 2017 04:18 - CONCLUSION: The lungs are clear. Scar Bryan MD Objective Remarks Pelvis: dressings clean and dry. RLE: dressings clean and dry. +vac. good seal. +knee brace Assessment & Plan Assessment and Plan 1- Segmental grade 3C open RIGHT femur fracture s/p I&D with ORIF and Abx bead placement - POD 4 2- Pubic Symphysis Disruption s/p ORIF - POD 7 3- Right Intertroch Hip Fx s/p IMN - POD 7 4- 1st toe fx s/p ORIF by Dr Cueva 5- split thickness skin graft of right femur POD#1 maintain vac on right leg at all times vac settings: 100 continuous NWB BLE daily dressing changes to pelvis - xeroform and primapore will plan on leaving vac on until Wednesday Isai Bender Jr. Apr 21, 2017 09:26
[2017-04-21] MEDS: DOCUSATE SODIUM 50 MG/SENNA 8.6 MG TAB PO SCH ×2 (10:29→22:04)
[2017-04-21] MEDS: MULTIVITAMINS/MINERALS THERAPEUTIC TAB PO SCH ×2 (10:29→22:04)
[2017-04-21] MEDS: FAMOTIDINE 20 MG TAB PO SCH ×2 (10:29→22:04)
[2017-04-21] MEDS: LISINOPRIL 20 MG TAB PO SCH ×2 (10:30→22:04)
[2017-04-21] MEDS: SODIUM CHLORIDE 0.9% FLUSH 10 ML FLUSH IV FLUSH SCH ×2 (10:30→22:04)
[2017-04-21] MEDS: oxyCODONE/ACETAMINOPHEN 5 MG/325 MG TAB PO PRN ×3 (11:10→16:24)
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
--- NOTE | 2017-04-21 16:13 | PD.POD ---
Subjective Podiatric Problems Right hallux comminuted proximal phalanx fracture s/p pinning of right hallux and repair of laceration, Anay 04/11/17 Past Med/Surg/Social History Social History Smoking Status: Current Every Day Smoker Objective Vital Signs Vital Signs Date Time Temp Pulse Resp B/P (MAP) Pulse Ox O2 Delivery O2 Flow Rate FiO2 04/21/17 12:00 98.2 100 24 125/75 (92) 98 04/21/17 08:53 98 Nasal Cannula 2.00 04/21/17 08:00 98 22 120/71 (87) 98 04/21/17 04:15 99.1 107 20 131/76 (94) 98 04/21/17 00:00 100.2 100 21 130/69 (89) 100 04/20/17 23:54 18 04/20/17 22:19 98 Nasal Cannula 2.00 04/20/17 20:40 99.3 111 20 124/81 (95) 96 04/20/17 20:00 108 04/20/17 16:16 92 Coded Allergies: No Known Allergies (Unverified , 04/10/17) Exam-Podiatry Remarks Right hallux is not viable and is becoming hardened and necrotic. Cold to touch. Appears that skin at margins at level of base of proximal phalanx area is still demarcating and is unclear at this time. No sign of infection present. Assessment & Plan A/P Right hallux comminuted proximal phalanx fracture s/p pinning of right hallux and repair of laceration, Anay 04/11/17 Will continue to evaluate to assess viability of skin surrounding right hallux. Will evaluate over the weekend to determine level of amputation needed and plan for surgery for amputation early next week with Dr Snow Keep clean, dry. Nenita Painter DPM Apr 21, 2017 16:13
[2017-04-21] MEDS: HYDROmorphone HCL PF 2 MG/ML VIAL IV PRN (17:57)
[2017-04-22] VITALS: BP_SYST 117; BP_SYST 129; BP_DIAS 67; BP_DIAS 78; PULSE 100; PULSE 95; RESP 15; RESP 21; TEMP 97.5; TEMP 98.9; O2SAT 96; O2SAT 97
[2017-04-22] MEDS: MAGNESIUM HYDROXIDE SUSP 30 ML CUP PO SCH ×2 (00:55→14:19)
[2017-04-22] MEDS: ceFAZolin 2 GM PREMIX 50 ML IV SCH ×2 (00:57→09:44)
[2017-04-22] MEDS: ENOXAPARIN SODIUM 30 MG/0.3 ML SYRINGE SQ SCH ×2 (00:58→14:19)
[2017-04-22] MEDS: oxyCODONE/ACETAMINOPHEN 5 MG/325 MG TAB PO PRN ×4 (03:59→20:45)
[2017-04-22 04:01] VITALS: BP 123/64; PULSE 104; RESP 22; TEMP 97.9; O2SAT 96
[2017-04-22 04:14] LABS: AUTOMATED NEUTROPHIL # 13.6 TH/MM3 (1.8-7.7); BASOPHIL # 0.1 TH/MM3 (0-0.2); BASOPHIL % 0.9 % (0.0-2.0); EOSINOPHIL # 0.3 TH/MM3 (0-0.4); EOSINOPHIL % 1.5 % (0.0-4.0); HEMATOCRIT 28.9 % (39.0-51.0); HEMOGLOBIN 9.7 GM/DL (13.0-17.0); LYMPH % 10.6 % (9.0-44.0); LYMPHOCYTE # 1.8 TH/MM3 (1.0-4.8); MEAN CELL VOLUME 87.4 FL (80.0-100.0); MEAN CORPUSCULAR HEMOGLOBIN 29.4 PG (27.0-34.0); MEAN CORPUSCULAR HGB CONC 33.6 % (32.0-36.0); MEAN PLATELET VOLUME 7.7 FL (7.0-11.0); MONO % 6.1 % (0.0-8.0); NEUT % 80.9 % (16.0-70.0); PLATELET COUNT 993 TH/MM3 (150-450); RED CELL DISTRIBUTION WIDTH 17.4 % (11.6-17.2); WHITE BLOOD COUNT 16.8 TH/MM3 (4.0-11.0)
[2017-04-22 04:40] LABS: BICARBONATE 26.5 MEQ/L (21.0-32.0); CALCIUM 8.6 MG/DL (8.5-10.1); CREATININE 0.92 MG/DL (0.60-1.30)
[2017-04-22] MEDS: METHOCARBAMOL 500 MG TAB PO SCH ×3 (06:05→20:44)
[2017-04-22] MEDS: QUEtiapine FUMARATE 25 MG TAB G-TUBE SCH ×3 (06:05→20:44)
--- NOTE | 2017-04-22 07:03 | PD.ORT.PN ---
Subjective Subjective Remarks stable, no new changes Objective Vitals Vital Signs Date Time Temp Pulse Resp B/P (MAP) Pulse Ox O2 Delivery O2 Flow Rate FiO2 04/22/17 04:01 97.9 104 22 123/64 (83) 96 04/22/17 00:00 97.5 100 21 117/67 (84) 96 04/21/17 20:00 98.7 101 22 108/61 (77) 96 04/21/17 19:51 95 04/21/17 16:00 98.0 104 25 109/66 (80) 95 04/21/17 12:00 98.2 100 24 125/75 (92) 98 04/21/17 08:53 98 Nasal Cannula 2.00 04/21/17 08:00 104 04/21/17 08:00 98 22 120/71 (87) 98 I/O 04/21/17 04/21/17 04/21/17 04/22/17 04/22/17 04/22/17 07:00 15:00 23:00 07:00 15:00 23:00 Intake Total 360 ml 600 ml 450 ml Output Total 850 ml 1630 ml 800 ml Balance -490 ml -1030 ml -350 ml Intake Oral 360 ml 600 ml 450 ml Output Urine Total 850 ml 1630 ml 800 ml Result Diagram: 04/22/17 0328 04/22/17 0328 Imaging Last 24 hours Impressions Chest X-Ray 04/12/17 0600 Signed Impressions: Service Date/Time: Wednesday, April 12, 2017 04:18 - CONCLUSION: The lungs are clear. Scar Bryan MD Objective Remarks Pelvis: dressings clean and dry. RLE: dressings clean and dry. +vac. good seal. +knee brace Left lower extremity: Absorbent dressings removed. Xeroform remains. Assessment & Plan Assessment and Plan 1- Segmental grade 3C open RIGHT femur fracture s/p I&D with ORIF and Abx bead placement - POD 5 2- Pubic Symphysis Disruption s/p ORIF - POD 8 3- Right Intertroch Hip Fx s/p IMN - POD 8 4- 1st toe fx s/p ORIF by Dr Cueva 5- split thickness skin graft of right femur POD#2 maintain vac on right leg at all times vac settings: 125 continuous NWB BLE daily dressing changes to pelvis - xeroform and prim[place] Leave Xeroform and place on left thigh. May pat dry due to drainage will plan on leaving vac on until Wednesday - we will discontinue bedside Isai Bender Jr. Apr 22, 2017 07:03
[2017-04-22 08:00] VITALS: BP 118/61; PULSE 93; RESP 18; TEMP 99; O2SAT 95
[2017-04-22 08:43] LABS: BANDS 9 % (0-6); LYMPHOCYTES 6 % (9-44); METAMYELOCYTES 2 % (0-1); MONOCYTES 7 % (0-8); MYELOCYTES 4 % (0-0); NEUTROPHIL # MANUAL DIFF 14.6 TH/MM3 (1.8-7.7); POLYS (SEG NEUTROPHILS) 72 % (16-70)
[2017-04-22 08:44] LABS: POLYCHROMASIA 2.5 % (0.0-1.9); TOXIC GRANULATION 1+ (NORMAL)
[2017-04-22] MEDS: FAMOTIDINE 20 MG TAB PO SCH ×2 (09:44→20:44)
[2017-04-22] MEDS: LISINOPRIL 20 MG TAB PO SCH ×2 (09:44→20:44)
[2017-04-22] MEDS: SODIUM CHLORIDE 0.9% FLUSH 10 ML FLUSH IV FLUSH SCH (09:44)
[2017-04-22] MEDS: MULTIVITAMINS/MINERALS THERAPEUTIC TAB PO SCH ×2 (09:44→20:44)
[2017-04-22] MEDS: DOCUSATE SODIUM 50 MG/SENNA 8.6 MG TAB PO SCH ×2 (09:44→20:45)
[2017-04-22] MEDS: fentaNYL 50 MCG/HR PATCH T-DERMAL SCH (11:57)
[2017-04-22 12:00] VITALS: BP 118/67; PULSE 94; RESP 18; TEMP 98.8; O2SAT 94
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
[2017-04-22 16:00] VITALS: BP 133/70; PULSE 101; RESP 20; TEMP 99.3; O2SAT 95
[2017-04-22 20:00] VITALS: BP 133/71; PULSE 93; RESP 16; TEMP 99.8; O2SAT 96
[2017-04-23] VITALS (7 sets, daily range): BP systolic 104–129; BP diastolic 59–78; PULSE 88–101; RESP 15–20; TEMP 98–99.6; O2SAT 95–99
[2017-04-23] MEDS: METHOCARBAMOL 500 MG TAB PO SCH ×4 (04:51→23:49)
[2017-04-23] MEDS: QUEtiapine FUMARATE 25 MG TAB G-TUBE SCH ×3 (04:51→21:14)
[2017-04-23] MEDS: MAGNESIUM HYDROXIDE SUSP 30 ML CUP PO SCH ×3 (04:51→21:19)
[2017-04-23] MEDS: ENOXAPARIN SODIUM 30 MG/0.3 ML SYRINGE SQ SCH ×3 (04:52→23:49)
--- NOTE | 2017-04-23 06:50 | PD.ORT.PN ---
Subjective Subjective Remarks stable, no new changes Objective Vitals Vital Signs Date Time Temp Pulse Resp B/P (MAP) Pulse Ox O2 Delivery O2 Flow Rate FiO2 04/22/17 18:55 Room Air 04/22/17 16:00 99.3 101 20 133/70 (91) 95 04/22/17 12:00 98.8 94 18 118/67 (84) 94 04/22/17 08:09 21 04/22/17 08:00 99.0 93 18 118/61 (80) 95 I/O 04/22/17 04/22/17 04/22/17 04/23/17 04/23/17 04/23/17 07:00 15:00 23:00 07:00 15:00 23:00 Intake Total 450 ml 360 ml Output Total 800 ml 525 ml 5 ml Balance -350 ml -165 ml -5 ml Intake Oral 450 ml 360 ml Output Urine Total 800 ml 525 ml Drainage Total 5 ml Result Diagram: 04/22/17 0328 04/22/17 0328 Imaging Last 24 hours Impressions Chest X-Ray 04/12/17 0600 Signed Impressions: Service Date/Time: Wednesday, April 12, 2017 04:18 - CONCLUSION: The lungs are clear. Scar Bryan MD Objective Remarks Pelvis: dressings clean and dry. RLE: dressings clean and dry. +vac. good seal. No sensation of first toe. First toe is necrotic with percutaneous pin Left lower extremity: Absorbent dressings removed. Xeroform remains. Assessment & Plan Assessment and Plan 1- Segmental grade 3C open RIGHT femur fracture s/p I&D with ORIF and Abx bead placement - POD 6 2- Pubic Symphysis Disruption s/p ORIF - POD 9 3- Right Intertroch Hip Fx s/p IMN - POD 9 4- 1st toe fx s/p ORIF by Dr Cueva 5- split thickness skin graft of right femur POD#3 maintain vac on right leg at all times vac settings: 125 continuous NWB BLE daily dressing changes to pelvis - xeroform and primapore Leave Xeroform and place on left thigh. May pat dry due to drainage will plan on leaving vac on until Wednesday - we will discontinue bedside Contact podiatry for right first toe Isai Bender Jr. Apr 23, 2017 06:50
[2017-04-23] MEDS: oxyCODONE/ACETAMINOPHEN 5 MG/325 MG TAB PO PRN ×4 (08:23→23:50)
[2017-04-23] MEDS: LACTULOSE SYRUP 20 GM/30 ML CUP PO SCH (08:26)
[2017-04-23] MEDS: MULTIVITAMINS/MINERALS THERAPEUTIC TAB PO SCH ×2 (08:27→21:14)
[2017-04-23] MEDS: LISINOPRIL 20 MG TAB PO SCH ×2 (08:27→21:13)
[2017-04-23] MEDS: FAMOTIDINE 20 MG TAB PO SCH ×2 (08:28→21:13)
[2017-04-23] MEDS: DOCUSATE SODIUM 50 MG/SENNA 8.6 MG TAB PO SCH ×2 (08:28→21:00)
[2017-04-23] MEDS: SODIUM CHLORIDE 0.9% FLUSH 10 ML FLUSH IV FLUSH SCH ×2 (08:28→21:15)
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
[2017-04-24] VITALS: BP 115/65; PULSE 90; RESP 20; TEMP 98.5; O2SAT 98
[2017-04-24] MEDS: oxyCODONE/ACETAMINOPHEN 5 MG/325 MG TAB PO PRN ×5 (03:52→20:48)
[2017-04-24] MEDS: QUEtiapine FUMARATE 25 MG TAB G-TUBE SCH ×4 (03:53→22:32)
[2017-04-24] MEDS: METHOCARBAMOL 500 MG TAB PO SCH ×4 (04:42→23:54)
[2017-04-24 08:00] VITALS: BP 111/69; PULSE 83; RESP 17; TEMP 98; O2SAT 98
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
[2017-04-24] MEDS: MULTIVITAMINS/MINERALS THERAPEUTIC TAB PO SCH ×2 (08:23→20:49)
[2017-04-24] MEDS: LISINOPRIL 20 MG TAB PO SCH ×2 (08:23→20:49)
[2017-04-24] MEDS: DOCUSATE SODIUM 50 MG/SENNA 8.6 MG TAB PO SCH ×2 (08:23→20:49)
[2017-04-24] MEDS: SODIUM CHLORIDE 0.9% FLUSH 10 ML FLUSH IV FLUSH SCH ×2 (09:00→20:49)
[2017-04-24] MEDS: LACTULOSE SYRUP 20 GM/30 ML CUP PO SCH (09:00)
[2017-04-24] MEDS: FAMOTIDINE 20 MG TAB PO SCH ×2 (09:00→20:49)
[2017-04-24 12:00] VITALS: BP 115/65; PULSE 91; RESP 17; TEMP 98.4; O2SAT 97
[2017-04-24] MEDS: ENOXAPARIN SODIUM 30 MG/0.3 ML SYRINGE SQ SCH (12:08)
--- NOTE | 2017-04-24 12:43 | PD.POD ---
Subjective Podiatric Problems Right hallux comminuted proximal phalanx fracture s/p pinning of right hallux and repair of laceration, Anay 04/11/17 Patient denies much pain to the toe and states that it is fairly numb. Pain score: 0 Past Med/Surg/Social History Social History Smoking Status: Current Every Day Smoker Objective Vital Signs Vital Signs Date Time Temp Pulse Resp B/P (MAP) Pulse Ox O2 Delivery O2 Flow Rate FiO2 04/24/17 08:00 98.0 83 17 111/69 (83) 98 04/24/17 00:00 98.5 90 20 115/65 (82) 98 04/23/17 20:00 99.0 90 20 111/63 (79) 97 04/23/17 20:00 99.0 04/23/17 19:19 Room Air 04/23/17 17:31 96 21 04/23/17 16:00 98.0 88 16 113/60 (77) 98 Coded Allergies: No Known Allergies (Unverified , 04/10/17) Physical Exam Remarks Right hallux with ischemia from the distal tip to MPJ. Some signs of early ischemia at the dorsal metatarsal head, demarcation lines have not fully set in. Sutures are intact, K wire was removed. No erythema. No drainage. Minimal edema. Assessment & Plan A/P 1)Right hallux comminuted proximal phalanx fracture s/p pinning of right hallux and repair of laceration, Anay 04/11/17 -Patient will require an amputation in the near future, but it will likely take another 1-2 weeks for demarcation. The patient can be brought back as an outpatient for this procedure. He is ok to d/c from a podiatry stand point to SNF on Wednesday. -No bandages needed -WBAT in surgical shoe -Follow up with Dr.Mc Campos in 3-5 day Pavithra Daniel DPM Apr 24, 2017 12:42
[2017-04-24] MEDS: MAGNESIUM HYDROXIDE SUSP 30 ML CUP PO SCH (13:00)
[2017-04-24 16:00] VITALS: BP 93/56; PULSE 99; RESP 17; TEMP 97.9; O2SAT 99
[2017-04-24 20:00] VITALS: BP 101/55; PULSE 99; RESP 18; TEMP 98; O2SAT 97
[2017-04-24 23:59] VITALS: BP 107/57; PULSE 90; RESP 18; TEMP 98.5; O2SAT 97
[2017-04-25] VITALS (7 sets, daily range): BP systolic 106–116; BP diastolic 59–70; PULSE 89–102; RESP 17–18; TEMP 98–98.7; O2SAT 93–99
[2017-04-25] MEDS: MAGNESIUM HYDROXIDE SUSP 30 ML CUP PO SCH ×2 (01:00→11:28)
[2017-04-25] MEDS: ENOXAPARIN SODIUM 30 MG/0.3 ML SYRINGE SQ SCH ×2 (01:17→11:29)
[2017-04-25] MEDS: oxyCODONE/ACETAMINOPHEN 5 MG/325 MG TAB PO PRN ×5 (01:52→21:01)
[2017-04-25 06:11] LABS: AUTOMATED NEUTROPHIL # 7.4 TH/MM3 (1.8-7.7); BASOPHIL # 0.1 TH/MM3 (0-0.2); EOSINOPHIL # 0.2 TH/MM3 (0-0.4); EOSINOPHIL % 2.3 % (0.0-4.0); HEMATOCRIT 30.5 % (39.0-51.0); HEMOGLOBIN 10.6 GM/DL (13.0-17.0); LYMPH % 17.4 % (9.0-44.0); LYMPHOCYTE # 1.7 TH/MM3 (1.0-4.8); MEAN CELL VOLUME 87.5 FL (80.0-100.0); MEAN CORPUSCULAR HEMOGLOBIN 30.3 PG (27.0-34.0); MEAN CORPUSCULAR HGB CONC 34.7 % (32.0-36.0); MEAN PLATELET VOLUME 7.8 FL (7.0-11.0); MONO % 5.3 % (0.0-8.0); MONOCYTE # 0.5 TH/MM3 (0-0.9); PLATELET COUNT 1076 TH/MM3 (150-450); RED BLOOD COUNT 3.48 MIL/MM3 (4.50-5.90); RED CELL DISTRIBUTION WIDTH 15.8 % (11.6-17.2)
[2017-04-25 06:16] LABS: BICARBONATE 22.9 MEQ/L (21.0-32.0); CALCIUM 8.5 MG/DL (8.5-10.1); CREATININE 1.08 MG/DL (0.60-1.30)
[2017-04-25] MEDS: QUEtiapine FUMARATE 25 MG TAB G-TUBE SCH ×2 (06:57→21:25)
[2017-04-25] MEDS: METHOCARBAMOL 500 MG TAB PO SCH ×2 (06:58→21:25)
[2017-04-25] MEDS ORDERED: PERI PO (07:49)
[2017-04-25] MEDS ORDERED: MAGN30S PO (07:49)
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
[2017-04-25 08:58] LABS: LYMPHOCYTES 16 % (9-44); METAMYELOCYTES 1 % (0-1); MONOCYTES 6 % (0-8); MYELOCYTES 3 % (0-0); NEUTROPHIL # MANUAL DIFF 7.6 TH/MM3 (1.8-7.7); POLYS (SEG NEUTROPHILS) 72 % (16-70)
[2017-04-25] MEDS: LACTULOSE SYRUP 20 GM/30 ML CUP PO SCH (09:00)
[2017-04-25] MEDS: FAMOTIDINE 20 MG TAB PO SCH ×2 (11:26→21:00)
[2017-04-25] MEDS: LISINOPRIL 20 MG TAB PO SCH ×2 (11:27→21:00)
[2017-04-25] MEDS: DOCUSATE SODIUM 50 MG/SENNA 8.6 MG TAB PO SCH ×2 (11:28→21:01)
[2017-04-25] MEDS: MULTIVITAMINS/MINERALS THERAPEUTIC TAB PO SCH ×2 (11:29→21:00)
[2017-04-25] MEDS: SODIUM CHLORIDE 0.9% FLUSH 10 ML FLUSH IV FLUSH SCH ×2 (11:29→21:01)
[2017-04-26 00:20] VITALS: BP 112/60; PULSE 91; RESP 17; TEMP 98.3; O2SAT 98
[2017-04-26] MEDS: ENOXAPARIN SODIUM 30 MG/0.3 ML SYRINGE SQ SCH ×2 (00:57→13:23)
[2017-04-26] MEDS: oxyCODONE/ACETAMINOPHEN 5 MG/325 MG TAB PO PRN ×6 (00:57→22:58)
[2017-04-26] MEDS: MAGNESIUM HYDROXIDE SUSP 30 ML CUP PO SCH ×2 (01:00→13:00)
[2017-04-26] MEDS: METHOCARBAMOL 500 MG TAB PO SCH ×3 (05:01→21:07)
[2017-04-26] MEDS: QUEtiapine FUMARATE 25 MG TAB G-TUBE SCH ×3 (05:01→21:07)
--- NOTE | 2017-04-26 06:51 | PD.ORT.PN ---
Subjective Subjective Remarks POD 12 s/p IMN right hip POD 12 s/p ORIF pubic symphysis POD 10 s/p ORIF right distal femur with Abx bead placement POD 6 s/p STSG right thigh s/p I&D right thigh wounds with distal wound closure and partial closure proximal wound doing well. no changes. stable. Objective Vitals Vital Signs Date Time Temp Pulse Resp B/P (MAP) Pulse Ox O2 Delivery O2 Flow Rate FiO2 04/26/17 00:20 98.3 91 17 112/60 (77) 98 04/25/17 20:30 98.0 101 17 110/62 (78) 98 04/25/17 17:41 96 21 04/25/17 16:00 98.6 94 18 106/59 (75) 99 04/25/17 12:00 98.7 89 18 108/62 (77) 96 04/25/17 10:12 93 04/25/17 08:00 98.5 102 18 111/70 (84) 93 I/O 04/25/17 04/25/17 04/25/17 04/26/17 04/26/17 04/26/17 07:00 15:00 23:00 07:00 15:00 23:00 Intake Total 480 ml 960 ml 480 ml Output Total 600 ml 650 ml 700 ml Balance -120 ml 310 ml -220 ml Intake Oral 480 ml 960 ml 480 ml Output Urine Total 600 ml 650 ml 700 ml Drainage Total 0 ml # Voids 1 # Bowel Movements 0 1 0 Result Diagram: 04/25/17 0448 04/25/17 0448 Imaging Last 24 hours Impressions Chest X-Ray 04/12/17 0600 Signed Impressions: Service Date/Time: Wednesday, April 12, 2017 04:18 - CONCLUSION: The lungs are clear. Scar Bryan MD Objective Remarks Pelvis: dressings clean and dry. RLE: dressings clean and dry. +vac. good seal. No sensation of first toe. First toe is necrotic with percutaneous pin. vac removed. graft intact and healing well. Left lower extremity: Absorbent dressings removed. Xeroform remains. Assessment & Plan Assessment and Plan POD 12 s/p IMN right hip POD 12 s/p ORIF pubic symphysis POD 10 s/p ORIF right distal femur with Abx bead placement POD 6 s/p STSG right thigh s/p I&D right thigh wounds with distal wound closure and partial closure proximal wound NWB BLE daily dressing changes to pelvis - xeroform and primapore Leave Xeroform and place on left thigh. May pat dry due to drainage vac removed at bedside. begin daily dressing changes of right thigh with xeroform/4x4/tape Olegario Morrison/Karate Teacher PA Apr 26, 2017 06:51
[2017-04-26 07:40] VITALS: BP 102/59; PULSE 96; RESP 18; TEMP 98.3; O2SAT 99
[2017-04-26] MEDS: LACTULOSE SYRUP 20 GM/30 ML CUP PO SCH (09:00)
[2017-04-26] MEDS: LISINOPRIL 20 MG TAB PO SCH ×2 (09:00→21:08)
[2017-04-26] MEDS: DOCUSATE SODIUM 50 MG/SENNA 8.6 MG TAB PO SCH ×2 (09:31→21:07)
[2017-04-26] MEDS: MULTIVITAMINS/MINERALS THERAPEUTIC TAB PO SCH ×2 (09:31→21:08)
[2017-04-26] MEDS: FAMOTIDINE 20 MG TAB PO SCH ×2 (09:31→21:07)
[2017-04-26] MEDS: SODIUM CHLORIDE 0.9% FLUSH 10 ML FLUSH IV FLUSH SCH ×2 (09:32→21:07)
[2017-04-26 11:25] VITALS: BP 103/55; PULSE 93; RESP 18; TEMP 97.6; O2SAT 98
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
[2017-04-26 15:29] VITALS: BP 108/57; PULSE 96; RESP 18; TEMP 97.8; O2SAT 97
[2017-04-26 21:00] VITALS: BP 121/68; PULSE 89; RESP 17; TEMP 98.5; O2SAT 97
[2017-04-26 23:50] VITALS: BP 120/73; PULSE 98; RESP 17; TEMP 97.5; O2SAT 100
[2017-04-27] VITALS (7 sets, daily range): BP systolic 94–116; BP diastolic 62–66; PULSE 94–110; RESP 16–18; TEMP 97.6–98.8; O2SAT 94–98
[2017-04-27] MEDS: MAGNESIUM HYDROXIDE SUSP 30 ML CUP PO SCH ×3 (00:14→19:00)
[2017-04-27] MEDS: ENOXAPARIN SODIUM 30 MG/0.3 ML SYRINGE SQ SCH ×4 (01:28→19:00)
[2017-04-27] MEDS: oxyCODONE/ACETAMINOPHEN 5 MG/325 MG TAB PO PRN ×5 (03:20→20:15)
--- NOTE | 2017-04-27 06:35 | PD.ORT.PN ---
Subjective Subjective Remarks stable, no new changes Objective Vitals Vital Signs Date Time Temp Pulse Resp B/P (MAP) Pulse Ox O2 Delivery O2 Flow Rate FiO2 04/26/17 23:50 97.5 98 17 120/73 (89) 100 04/26/17 15:29 97.8 96 18 108/57 (74) 97 04/26/17 11:25 97.6 93 18 103/55 (71) 98 04/26/17 07:40 98.3 96 18 102/59 (73) 99 I/O 04/26/17 04/26/17 04/26/17 04/27/17 04/27/17 04/27/17 07:00 15:00 23:00 07:00 15:00 23:00 Intake Total 480 ml 480 ml 480 ml Output Total 700 ml 800 ml 750 ml Balance -220 ml -320 ml -270 ml Intake Oral 480 ml 480 ml 480 ml Output Urine Total 700 ml 800 ml 750 ml # Bowel Movements 0 0 0 Result Diagram: 04/25/178 04/25/178 Imaging Last 24 hours Impressions Chest X-Ray 04/12/17 0600 Signed Impressions: Service Date/Time: Wednesday, April 12, 2017 04:18 - CONCLUSION: The lungs are clear. Scar Bryan MD Objective Remarks Pelvis: dressings clean and dry. RLE: dressings clean and dry.No sensation of first toe. Toes 2 through 5 do have sensation. First toe is necrotic with percutaneous pin. Left lower extremity: Absorbent dressings removed. Xeroform remains. Assessment & Plan Assessment and Plan POD 13 s/p IMN right hip POD 13 s/p ORIF pubic symphysis POD 11 s/p ORIF right distal femur with Abx bead placement POD 7 s/p STSG right thigh s/p I&D right thigh wounds with distal wound closure and partial closure proximal wound NWB BLE daily dressing changes to pelvis - xeroform and primapore Leave Xeroform and place on left thigh. May pat dry due to drainage begin daily dressing changes of right thigh with xeroform/4x4/tape Discharge planning - orthopedically cleared for discharge Podiatry for continuation of care of first toe Isai Bender Jr. Apr 27, 2017 06:35
[2017-04-27] MEDS: QUEtiapine FUMARATE 25 MG TAB G-TUBE SCH ×3 (06:41→20:13)
[2017-04-27] MEDS: METHOCARBAMOL 500 MG TAB PO SCH ×3 (06:41→20:15)
[2017-04-27] MEDS: LACTULOSE SYRUP 20 GM/30 ML CUP PO SCH (09:00)
[2017-04-27] MEDS: LISINOPRIL 20 MG TAB PO SCH ×2 (09:00→20:14)
[2017-04-27] MEDS: FAMOTIDINE 20 MG TAB PO SCH ×2 (09:08→20:15)
[2017-04-27] MEDS: MULTIVITAMINS/MINERALS THERAPEUTIC TAB PO SCH ×2 (09:08→20:14)
[2017-04-27] MEDS: DOCUSATE SODIUM 50 MG/SENNA 8.6 MG TAB PO SCH ×2 (09:08→20:15)
[2017-04-27] MEDS: SODIUM CHLORIDE 0.9% FLUSH 10 ML FLUSH IV FLUSH SCH ×2 (09:09→20:13)
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
--- NOTE | 2017-04-27 12:14 | RADRPT ---
EXAM DATE/TIME: 04/27/2017 11:42 [place] COMPARISON: No previous studies available for comparison. INDICATIONS : Pain, swelling, and bruising right thumb. MEDICAL HISTORY : None. SURGICAL HISTORY : None. ENCOUNTER: Subsequent ACUITY: 3 weeks PAIN SCORE: 8/10 LOCATION: Right Thumb. FINDINGS: There is a mildly comminuted and displaced fracture of the proximal metaphysis of the first metacarpa l with medial dislocation of the proximal metaphyseal fragment. The carpal bones remain in normal ali gnment. Angiocath present in the dorsal hand. CONCLUSION: Displaced fracture of the proximal first metacarpal. Scar Bryan MD on April 27, 2017 at 12:11 Board Certified Radiologist. This report was verified electronically.
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
[2017-04-28 00:25] VITALS: BP 109/64; PULSE 94; RESP 17; TEMP 98.5; O2SAT 97
[2017-04-28] MEDS: oxyCODONE/ACETAMINOPHEN 5 MG/325 MG TAB PO PRN ×3 (00:40→22:07)
[2017-04-28 04:27] VITALS: O2SAT 94
[2017-04-28] MEDS ORDERED: POVIDONE IODINE 5% (ANTISEPSIS KIT) 4 APPLICATIONS EACH NARE PRN (04:30)
[2017-04-28] MEDS ORDERED: CHLORHEXIDINE GLUCONATE 2 % 1 PACK (2 CLOTHS) TOPICAL PRN (04:30)
[2017-04-28] MEDS ORDERED: METOPROLOL TARTRATE 25 MG TAB PO PRN (04:30)
[2017-04-28] MEDS ORDERED: LACTATED RINGER'S 1000 ML IV PRN (04:30)
[2017-04-28] MEDS ORDERED: SODIUM CHLORID 0.9% 500 ML IV PRN (04:30)
[2017-04-28] MEDS: METHOCARBAMOL 500 MG TAB PO SCH ×3 (04:48→22:06)
[2017-04-28] MEDS: QUEtiapine FUMARATE 25 MG TAB G-TUBE SCH ×2 (04:48→22:06)
[2017-04-28 07:37] VITALS: BP 103/62; PULSE 90; RESP 18; TEMP 97.5; O2SAT 97
[2017-04-28] MEDS: DOCUSATE SODIUM 50 MG/SENNA 8.6 MG TAB PO SCH ×2 (09:00→22:07)
[2017-04-28] MEDS: LACTULOSE SYRUP 20 GM/30 ML CUP PO SCH (09:00)
[2017-04-28] MEDS: FAMOTIDINE 20 MG TAB PO SCH ×2 (09:00→22:07)
[2017-04-28] MEDS: LISINOPRIL 20 MG TAB PO SCH ×2 (09:00→21:00)
[2017-04-28] MEDS: SODIUM CHLORIDE 0.9% FLUSH 10 ML FLUSH IV FLUSH SCH ×2 (09:00→21:00)
[2017-04-28] MEDS: MULTIVITAMINS/MINERALS THERAPEUTIC TAB PO SCH ×2 (09:00→22:08)
[2017-04-28] MEDS: HYDROmorphone HCL PF 2 MG/ML VIAL IV PRN ×2 (09:04→13:34)
[2017-04-28 12:00] VITALS: BP 109/62; PULSE 92; RESP 18; TEMP 98; O2SAT 99
[2017-04-28] MEDS ORDERED: DEXAMETHASONE SOD PHOS 4 MG/ML VIAL IV ONE (12:00)
[2017-04-28] MEDS ORDERED: LIDOCAINE HCL 1% PF 5 ML SYRINGE OTHER ONE (12:00)
[2017-04-28] MEDS ORDERED: PHENYLEPH/NS 1000 MCG/10 ML SYR IV ONE (12:00)
[2017-04-28] MEDS ORDERED: PROPOFOL 200 MG/20 ML AMP IV ONE (12:00)
[2017-04-28] MEDS ORDERED: ONDANSETRON HCL 4 MG/2 ML VIAL IV ONE (12:00)
[2017-04-28] MEDS: MAGNESIUM HYDROXIDE SUSP 30 ML CUP PO SCH (13:00)
[2017-04-28] MEDS: ENOXAPARIN SODIUM 30 MG/0.3 ML SYRINGE SQ SCH (13:00)
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
--- NOTE | 2017-04-28 14:59 | RADRPT ---
EXAM DATE/TIME: 04/28/2017 14:01 [facility] COMPARISON: No previous studies available for comparison. INDICATIONS : Evaluate fracture. MEDICAL HISTORY : femur fracture, wound vac x 2, traction, pelvic fracture SURGICAL HISTORY : None. ENCOUNTER: Subsequent ACUITY: 2 weeks PAIN SCORE: 10/10 LOCATION: Bilateral Pelvis FINDINGS: Alignment anatomic across the pubic symphysis. Intramedullary [place] on the left. Trochanteric nail on the right. Anatomic alignment. CONCLUSION: Anatomic alignment. Rick Flaherty MD FACR on April 28, 2017 at 14:57 Board Certified Radiologist. This report was verified electronically.
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
[2017-04-28 15:30] VITALS: BP 112/62; PULSE 88; RESP 20; TEMP 97.3
[2017-04-28] MEDS ORDERED: BACITRACIN TOP OINT 15 GM TUBE ONE (16:07)
[2017-04-28] MEDS ORDERED: BUPIVACAINE HCL PF 0.25% 30 ML VIAL ONE (16:07)
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
[2017-04-28] MEDS ORDERED: VANCOMYCIN 500 MG VIAL ONE (17:35)
--- NOTE | 2017-04-28 18:19 | HHI.PR ---
Immediate Post Op Note Procedure Date: Apr 28, 2017 Pre Op Diagnosis: Right Hallux necrosis Post Op Diagnosis: Right hallux necrosis Surgeon: Radha Snow Mastercam Programmer(s): None Procedure: Right hallux amputation at metatarsophalangeal joint Findings: None Additional Information: None Complications: None Specimen(s) removed: Right hallux Estimated blood loss: Less than 5 cc Anesthesia: LMA Drains: None Patient to: PACU Patient Condition: Good Radha Snow DPM Apr 28, 2017 18:19
[2017-04-28] MEDS ORDERED: MIDAZOLAM HCL 2 MG/2 ML VIAL ONE (18:21)
[2017-04-28] MEDS ORDERED: DO NOT ADM ANY ANTICOAGULANT DRUGS PRN (18:45)
--- NOTE | 2017-04-28 19:35 | RADRPT ---
EXAM DATE/TIME: 04/28/2017 18:45 [place] COMPARISON: No previous studies available for comparison. INDICATIONS : Status post right great toe amputation. MEDICAL HISTORY : None. SURGICAL HISTORY : None. ENCOUNTER: Subsequent ACUITY: 1 day PAIN SCORE: 3/10 LOCATION: Right Foot FINDINGS: Status post amputation of the first toe. Postsurgical changes are demonstrated. The rest of the bony structures are grossly intact. CONCLUSION: Status post amputation of the first toe. Carlito Calles MD on April 28, 2017 at 19:33 Board Certified Radiologist. This report was verified electronically.
[2017-04-28 20:00] VITALS: BP 116/72; PULSE 99; RESP 16; TEMP 98.3; O2SAT 96
[2017-04-28] MEDS: SENNOSIDES 8.6 MG TAB PO PRN (22:07)
[2017-04-29] VITALS: BP 113/69; PULSE 106; RESP 16; TEMP 98.6; O2SAT 95
[2017-04-29] MEDS: MAGNESIUM HYDROXIDE SUSP 30 ML CUP PO SCH ×2 (00:51→11:34)
[2017-04-29] MEDS: ENOXAPARIN SODIUM 30 MG/0.3 ML SYRINGE SQ SCH ×3 (00:52→14:51)
[2017-04-29] MEDS: oxyCODONE/ACETAMINOPHEN 5 MG/325 MG TAB PO PRN ×5 (02:52→21:17)
[2017-04-29 04:00] VITALS: BP 117/69; PULSE 90; RESP 16; TEMP 98.7; O2SAT 99
[2017-04-29] MEDS: QUEtiapine FUMARATE 25 MG TAB G-TUBE SCH ×3 (06:20→21:16)
[2017-04-29] MEDS: METHOCARBAMOL 500 MG TAB PO SCH ×3 (06:20→21:17)
--- NOTE | 2017-04-29 06:41 | PD.ORT.PN ---
Subjective Subjective Remarks stable, no new changes Objective Vitals Vital Signs Date Time Temp Pulse Resp B/P (MAP) Pulse Ox O2 Delivery O2 Flow Rate FiO2 04/29/17 00:00 98.6 106 16 113/69 (84) 95 04/28/17 22:02 Room Air 04/28/17 20:00 98.3 99 16 116/72 (87) 96 04/28/17 18:50 97.8 87 15 102/58 (73) 99 Nasal Cannula 2 04/28/17 18:30 92 15 110/54 (72) 98 Nasal Cannula 2 04/28/17 18:15 97.5 90 17 109/53 (71) 94 Nasal Cannula 2 04/28/17 17:53 21 04/28/17 15:30 97.3 88 20 112/62 (79) 04/28/17 12:00 98.0 92 18 109/62 (78) 99 04/28/17 09:34 20 04/28/17 07:37 97.5 90 18 103/62 (76) 97 I/O 04/28/17 04/28/17 04/28/17 04/29/17 04/29/17 04/29/17 07:00 15:00 23:00 07:00 15:00 23:00 Intake Total 1200 ml 1500 ml Output Total 1200 ml 50 ml Balance 0 ml 1450 ml Intake Oral 1200 ml 700 ml IV Total 800 ml Output Urine Total 1200 ml 0 ml Estimated Blood Loss 50 ml # Voids 3 2 # Bowel Movements 0 Result Diagram: 04/25/17 0448 04/25/17 0448 Imaging Last 24 hours Impressions Chest X-Ray 04/12/17 0600 Signed Impressions: Service Date/Time: Wednesday, April 12, 2017 04:18 - CONCLUSION: The lungs are clear. Scar Bryan MD Objective Remarks Pelvis: dressings clean and dry. RLE: dressings clean and dry.wound VAC over first toe amputation. Toes 2 through 5 do have sensation and good tissue perfusion Left lower extremity: Xeroform remains. Distally neurovascularly intact Assessment & Plan Assessment and Plan POD 13 s/p IMN right hip POD 13 s/p ORIF pubic symphysis POD 11 s/p ORIF right distal femur with Abx bead placement POD 7 s/p STSG right thigh s/p I&D right thigh wounds with distal wound closure and partial closure proximal wound NWB BLE daily dressing changes to pelvis - xeroform and primapore Leave Xeroform and place on left thigh. May pat dry due to drainage begin daily dressing changes of right thigh with xeroform/4x4/tape Discharge planning - orthopedically cleared for discharge Podiatry for continuation of care of first toe Isai Bender Jr. Apr 29, 2017 06:41
[2017-04-29 08:00] VITALS: BP 111/65; PULSE 101; RESP 18; TEMP 98.3; O2SAT 97
[2017-04-29] MEDS: MULTIVITAMINS/MINERALS THERAPEUTIC TAB PO SCH ×2 (08:54→21:17)
[2017-04-29] MEDS: DOCUSATE SODIUM 50 MG/SENNA 8.6 MG TAB PO SCH ×2 (08:54→21:17)
[2017-04-29] MEDS: FAMOTIDINE 20 MG TAB PO SCH ×2 (08:54→21:17)
[2017-04-29] MEDS: LISINOPRIL 20 MG TAB PO SCH ×2 (08:54→21:17)
[2017-04-29] MEDS: SODIUM CHLORIDE 0.9% FLUSH 10 ML FLUSH IV FLUSH SCH ×2 (08:54→21:00)
[2017-04-29] MEDS: LACTULOSE SYRUP 20 GM/30 ML CUP PO SCH (08:54)
[2017-04-29 11:55] VITALS: BP 113/67; PULSE 99; RESP 18; TEMP 96.7; O2SAT 98
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
[2017-04-29 16:00] VITALS: BP 113/61; PULSE 100; RESP 18; TEMP 98.8; O2SAT 99
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
[2017-04-29 20:00] VITALS: BP 113/72; RESP 15; TEMP 99; O2SAT 98
[2017-04-29] MEDS: BISACODYL EC 5 MG TABEC PO SCH (21:17)
[2017-04-30] VITALS (7 sets, daily range): BP systolic 102–126; BP diastolic 58–76; PULSE 95–110; RESP 16–18; TEMP 97.3–97.8; O2SAT 96–100
[2017-04-30] MEDS: oxyCODONE/ACETAMINOPHEN 5 MG/325 MG TAB PO PRN ×5 (01:30→23:53)
[2017-04-30] MEDS: MAGNESIUM HYDROXIDE SUSP 30 ML CUP PO SCH ×2 (01:30→11:28)
[2017-04-30] MEDS: QUEtiapine FUMARATE 25 MG TAB G-TUBE SCH ×3 (05:59→22:03)
[2017-04-30] MEDS: METHOCARBAMOL 500 MG TAB PO SCH ×3 (05:59→22:03)
[2017-04-30 06:58] LABS: AUTOMATED NEUTROPHIL # 3.9 TH/MM3 (1.8-7.7); BASOPHIL # 0.1 TH/MM3 (0-0.2); BASOPHIL % 2.2 % (0.0-2.0); EOSINOPHIL # 0.1 TH/MM3 (0-0.4); HEMATOCRIT 33.4 % (39.0-51.0); HEMOGLOBIN 11.4 GM/DL (13.0-17.0); LYMPH % 23.4 % (9.0-44.0); LYMPHOCYTE # 1.4 TH/MM3 (1.0-4.8); MEAN CELL VOLUME 87.7 FL (80.0-100.0); MEAN CORPUSCULAR HGB CONC 34.2 % (32.0-36.0); MEAN PLATELET VOLUME 7.1 FL (7.0-11.0); MONO % 9.8 % (0.0-8.0); MONOCYTE # 0.6 TH/MM3 (0-0.9); NEUT % 63.6 % (16.0-70.0); PLATELET COUNT 790 TH/MM3 (150-450); RED BLOOD COUNT 3.81 MIL/MM3 (4.50-5.90); RED CELL DISTRIBUTION WIDTH 15.8 % (11.6-17.2); WHITE BLOOD COUNT 6.2 TH/MM3 (4.0-11.0)
[2017-04-30 07:19] LABS: BICARBONATE 26.1 MEQ/L (21.0-32.0); CALCIUM 8.7 MG/DL (8.5-10.1); CREATININE 0.89 MG/DL (0.60-1.30)
--- NOTE | 2017-04-30 07:22 | PD.ORT.PN ---
Subjective Subjective Remarks POD 17 s/p IMN right hip POD 17 s/p ORIF pubic symphysis POD 14 s/p ORIF right distal femur with Abx bead placement POD 10 s/p STSG right thigh with partial wound closure doing well. no changes. stable. Objective Vitals Vital Signs Date Time Temp Pulse Resp B/P (MAP) Pulse Ox O2 Delivery O2 Flow Rate FiO2 04/30/17 04:00 97.8 95 16 111/69 (83) 96 04/30/17 00:00 97.7 95 16 111/68 (82) 98 04/29/17 20:00 99.0 15 113/72 (86) 98 04/29/17 16:00 98.8 100 18 113/61 (78) 99 04/29/17 11:55 96.7 99 18 113/67 (82) 98 04/29/17 09:46 21 04/29/17 08:00 98.3 101 18 111/65 (80) 97 I/O 04/29/17 04/29/17 04/29/17 04/30/17 04/30/17 04/30/17 07:00 15:00 23:00 07:00 15:00 23:00 Intake Total 500 ml 960 ml 900 ml Output Total 350 ml 0 ml Balance 500 ml 610 ml 900 ml Intake Oral 500 ml 960 ml 900 ml Output Urine Total 350 ml Drainage Total 0 ml # Voids 2 3 2 # Bowel Movements 0 Result Diagram: 04/30/17 0519 04/30/17 0514 Imaging Last 24 hours Impressions Chest X-Ray 04/12/17 0600 Signed Impressions: Service Date/Time: Wednesday, April 12, 2017 04:18 - CONCLUSION: The lungs are clear. Scar Bryan MD Objective Remarks Pelvis: dressings clean and dry. incision healed well. no drainage. RLE: dressings clean and dry.wound VAC over first toe amputation. Toes 2 through 5 do have sensation and good tissue perfusion. skin graft over thigh healing well. surgical incisions clean and dry. Left lower extremity: Xeroform remains. Distally neurovascularly intact Assessment & Plan Assessment and Plan POD 17 s/p IMN right hip POD 17 s/p ORIF pubic symphysis POD 14 s/p ORIF right distal femur with Abx bead placement POD 10 s/p STSG right thigh s/p I&D right thigh wounds with distal wound closure and partial closure proximal wound NWB BLE daily dressing changes to pelvis - xeroform and prim[place] Leave Xeroform and place on left thigh. May pat dry due to drainage begin daily dressing changes of right thigh with xeroform/4x4/tape Discharge planning - orthopedically cleared for discharge Podiatry for continuation of care of first toe -DC nico from pelvis and right thigh/knee. remove sutures as well right thigh. -DO NOT REMOVE NICO OR SUTURES FROM SKIN GRAFT AREA Olegario Morrison/[employer] FORRESTER Apr 30, 2017 07:22
[2017-04-30] MEDS: DOCUSATE SODIUM 50 MG/SENNA 8.6 MG TAB PO SCH ×2 (07:25→19:44)
[2017-04-30] MEDS: LACTULOSE SYRUP 20 GM/30 ML CUP PO SCH (07:25)
[2017-04-30] MEDS: FAMOTIDINE 20 MG TAB PO SCH ×2 (07:25→19:44)
[2017-04-30] MEDS: MULTIVITAMINS/MINERALS THERAPEUTIC TAB PO SCH ×2 (07:25→19:44)
[2017-04-30] MEDS: LISINOPRIL 20 MG TAB PO SCH ×2 (08:59→19:44)
[2017-04-30] MEDS: SODIUM CHLORIDE 0.9% FLUSH 10 ML FLUSH IV FLUSH SCH ×2 (08:59→19:48)
[2017-04-30] MEDS: BISACODYL 10 MG SUPP RECTAL PRN (09:03)
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
[2017-04-30] MEDS: ENOXAPARIN SODIUM 30 MG/0.3 ML SYRINGE SQ SCH (11:28)
[2017-04-30] MEDS ORDERED: BUPIVACAINE HCL PF 0.5% 30 ML VIAL ONE (11:59)
[2017-04-30] MEDS ORDERED: LIDOCAINE HCL 2% 50 ML VIAL ONE (11:59)
[2017-04-30] MEDS ORDERED: NEOMYCIN/POLYMYXIN 1 ML G.U. IRRIGANT ONE (12:15)
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
[2017-04-30] MEDS ORDERED: MIDAZOLAM HCL 2 MG/2 ML VIAL ONE (13:12)
[2017-04-30] MEDS ORDERED: ACETAMINOPHEN 1000 MG/100 ML 100 ML IV ONE (13:12)
[2017-04-30] MEDS ORDERED: FAMOTIDINE 20 MG/2 ML VIAL ONE (13:13)
[2017-04-30] MEDS ORDERED: SODIUM CHLORID 0.9% 500 ML IV PRN (13:15)
[2017-04-30] MEDS ORDERED: METOPROLOL TARTRATE 25 MG TAB PO PRN (13:15)
[2017-04-30] MEDS ORDERED: CHLORHEXIDINE GLUCONATE 2 % 1 PACK (2 CLOTHS) TOPICAL PRN (13:15)
[2017-04-30] MEDS ORDERED: POVIDONE IODINE 5% (ANTISEPSIS KIT) 4 APPLICATIONS EACH NARE PRN (13:15)
[2017-04-30] MEDS ORDERED: LACTATED RINGER'S 1000 ML IV PRN (13:15)
[2017-04-30] MEDS ORDERED: VANCOMYCIN HCL 1000 MG VIAL ONE (13:34)
[2017-04-30] MEDS ORDERED: CIPROFLOXACIN/DEXT 400 MG/200 ML IV ONE (13:45)
[2017-04-30] MEDS ORDERED: PHENYLEPHRINE HCL 10 MG/ML VIAL ONE (13:55)
[2017-04-30] MEDS ORDERED: DO NOT ADM ANY ANTICOAGULANT DRUGS PRN (15:11)
[2017-04-30] MEDS ORDERED: *MEPERIDINE 25 MG INJ VIAL PERIprocedural Use ONLY ONE (15:35)
[2017-04-30] MEDS: BISACODYL EC 5 MG TABEC PO SCH (19:44)
[2017-05-01] VITALS (7 sets, daily range): BP systolic 98–109; BP diastolic 55–66; PULSE 93–109; RESP 16–18; TEMP 97.5–98.7; O2SAT 98–100
[2017-05-01] MEDS: MAGNESIUM HYDROXIDE SUSP 30 ML CUP PO SCH ×2 (01:00→12:42)
[2017-05-01] MEDS: ENOXAPARIN SODIUM 30 MG/0.3 ML SYRINGE SQ SCH ×3 (01:00→20:32)
[2017-05-01] MEDS: oxyCODONE/ACETAMINOPHEN 5 MG/325 MG TAB PO PRN ×5 (04:00→21:30)
[2017-05-01] MEDS: METHOCARBAMOL 500 MG TAB PO SCH ×3 (06:20→21:30)
[2017-05-01] MEDS: QUEtiapine FUMARATE 25 MG TAB G-TUBE SCH ×3 (06:20→21:30)
[2017-05-01] MEDS ORDERED: MAGNESIUM CITRATE SOLN 300 ML BTL PO ONE (08:15)
[2017-05-01] MEDS: FAMOTIDINE 20 MG TAB PO SCH ×2 (08:52→20:30)
[2017-05-01] MEDS: DOCUSATE SODIUM 50 MG/SENNA 8.6 MG TAB PO SCH ×2 (08:52→20:31)
[2017-05-01] MEDS: MULTIVITAMINS/MINERALS THERAPEUTIC TAB PO SCH ×2 (08:52→20:32)
[2017-05-01] MEDS: SODIUM CHLORIDE 0.9% FLUSH 10 ML FLUSH IV FLUSH SCH ×2 (08:53→20:32)
[2017-05-01] MEDS: LACTULOSE SYRUP 20 GM/30 ML CUP PO SCH (08:53)
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
[2017-05-01] MEDS: GABAPENTIN 300 MG CAP PO SCH ×2 (12:45→17:29)
[2017-05-01] MEDS: SENNOSIDES 8.6 MG TAB PO PRN (17:36)
[2017-05-01] MEDS: BISACODYL 10 MG SUPP RECTAL PRN (17:36)
[2017-05-01] MEDS ORDERED: BISACODYL 10 MG SUPP RECTAL ONE (20:00)
[2017-05-01] MEDS: BISACODYL EC 5 MG TABEC PO SCH (20:31)
[2017-05-01] MEDS: LISINOPRIL 10 MG TAB PO SCH (21:27)
[2017-05-02] MEDS: MAGNESIUM HYDROXIDE SUSP 30 ML CUP PO SCH ×2 (01:00→13:06)
[2017-05-02] MEDS: oxyCODONE/ACETAMINOPHEN 5 MG/325 MG TAB PO PRN ×6 (02:29→23:05)
[2017-05-02 04:40] VITALS: BP 105/66; PULSE 87; RESP 16; TEMP 98.1; O2SAT 99
[2017-05-02] MEDS: QUEtiapine FUMARATE 25 MG TAB G-TUBE SCH ×3 (06:01→21:57)
[2017-05-02] MEDS: METHOCARBAMOL 500 MG TAB PO SCH ×3 (06:01→21:57)
[2017-05-02] MEDS: GABAPENTIN 300 MG CAP PO SCH ×3 (07:37→18:35)
[2017-05-02] MEDS: FAMOTIDINE 20 MG TAB PO SCH ×2 (07:37→20:38)
[2017-05-02] MEDS: MULTIVITAMINS/MINERALS THERAPEUTIC TAB PO SCH ×2 (07:37→20:38)
[2017-05-02] MEDS: LACTULOSE SYRUP 20 GM/30 ML CUP PO SCH (07:37)
[2017-05-02] MEDS: DOCUSATE SODIUM 50 MG/SENNA 8.6 MG TAB PO SCH ×2 (07:37→20:39)
[2017-05-02] MEDS: ENOXAPARIN SODIUM 30 MG/0.3 ML SYRINGE SQ SCH ×2 (07:38→20:38)
[2017-05-02] MEDS: SODIUM CHLORIDE 0.9% FLUSH 10 ML FLUSH IV FLUSH SCH ×2 (07:38→20:40)
[2017-05-02] MEDS: LISINOPRIL 10 MG TAB PO SCH ×3 (07:38→20:39)
[2017-05-02 08:00] VITALS: BP 104/67; PULSE 95; RESP 18; TEMP 97.1; O2SAT 97
[2017-05-02 12:00] VITALS: BP 118/74; PULSE 102; RESP 18; TEMP 97.6; O2SAT 98
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
[2017-05-02 16:00] VITALS: BP 130/80; PULSE 96; RESP 18; TEMP 98.5; O2SAT 99
[2017-05-02 19:45] VITALS: BP 111/77; PULSE 95; RESP 16; TEMP 98.3; O2SAT 98
[2017-05-02] MEDS: BISACODYL EC 5 MG TABEC PO SCH (20:38)
--- NOTE | 2017-05-02 21:37 | MP ---
cc: ARIE CABELLO III, M.D. DATE OF OPERATION 04/30/2017 PREOPERATIVE DIAGNOSIS Right first metacarpal base/Noe fracture. PROCEDURE 1. Right first metacarpal base fracture, open reduction internal fixation with manipulation with a 22 modifier. 2. Use of image intensifier. SURGEON Arie Perdomo III, MD PROCEDURE A 22 modifier is attached to this because this is an almost 4-week-old injury which was intraarticular and extremely displaced so a fair amount of healing had occurred. It took an extended amount of time to identify anatomy as well as disrupt scar tissue that had formed. The patient was brought to the operating room, placed supine on the operating table. After the correct site and side of surgery were verified by members of each team in the room multiple times including the patient and myself and after adequate preoperative markings and preoperative written consent was verified by everyone and after adequate preoperative time-out was performed to everyone's satisfaction, after adequate general anesthesia had been achieved, the right upper extremity was prepped and draped in traditional sterile surgical fashion. A 50/50 mixture of 2% plain lidocaine and 0.5% plain Marcaine was infiltrated in the skin and subcutaneous tissue at the base of the first metacarpal. Closed reduction was attempted under real-time mini C-arm guidance and this revealed no mobilization of the fracture fragments. The limb was exsanguinated and a highly placed well-padded axillary tourniquet was inflated to 200 mmHg for a total of 65 minutes. A longitudinally oriented incision dorsally over the first CMC joint was made and carried down through the skin and subcutaneous tissue. Blunt dissection was performed. There was distorted soft tissue. The extensor tendons were not involved. Blunt dissection down to the capsule of the first CMC joint was performed and then a longitudinal incision over the first CMC joint was made. The base of the first metacarpal was very distorted and a lot of scar tissue was present. Manual dissection which was very piecemeal was performed and two thirds of the base of the first metacarpal was found to be distal to and volar to the metacarpal itself and these had to be mobilized very meticulously and then withdrawn back to the natural anatomic position. Provisional fixation was obtained. Thorough irrigation with saline was performed. Near-anatomic reduction was the completed using multiple 0.045 cm K-wires. A large fragment at the base was secured using a stainless steel screw from the [employer] modular handset. Bone graft putty was used as needed. Reduction was near-anatomic. The K-wires were then adjusted so they were not coming out of the MCP joint. There were tailored to length, cut, bent, Jurgan's balls were applied. Thorough irrigation was performed again. The capsule was closed using [id number] 3-0 Ethibond sutures. The skin edges were reapproximated using running and interrupted 4-0 nylon sutures. The hand and arm were thoroughly cleansed and dried. Betadine and Adaptic dressings was applied on top of the wound, followed by Betadine and Xeroform around the K-wires. A bulky soft dressing was applied. The axillary tourniquet was released and the hand and all fingers became immediately soft, pink, warm and had brisk capillary refill of less than 2 seconds including the thumb. A well-padded, well molded short-arm thumb spica splint was made in the usual fashion. The patient was awakened from anesthesia and transported to the Post-Anesthesia Care Unit awake and in stable condition at the end of the case. Sponge, needle and instrument counts were correct at the end of the case as reported by the nurses in the room. MD MIRYAM Mujica III/MICHAEL /3:08 PM /9:17 PM
[2017-05-02 23:45] VITALS: BP 111/74; PULSE 93; RESP 16; TEMP 98.2; O2SAT 98
[2017-05-03] MEDS: MAGNESIUM HYDROXIDE SUSP 30 ML CUP PO SCH ×2 (00:17→12:56)
[2017-05-03 02:20] VITALS: O2SAT 98
[2017-05-03] MEDS: oxyCODONE/ACETAMINOPHEN 5 MG/325 MG TAB PO PRN ×4 (03:03→16:56)
[2017-05-03] MEDS: METHOCARBAMOL 500 MG TAB PO SCH ×2 (06:25→15:30)
[2017-05-03] MEDS: QUEtiapine FUMARATE 25 MG TAB G-TUBE SCH ×2 (06:26→13:27)
[2017-05-03] MEDS: DOCUSATE SODIUM 50 MG/SENNA 8.6 MG TAB PO SCH (07:45)
[2017-05-03] MEDS: ENOXAPARIN SODIUM 30 MG/0.3 ML SYRINGE SQ SCH (07:45)
[2017-05-03] MEDS: FAMOTIDINE 20 MG TAB PO SCH (07:45)
[2017-05-03] MEDS: GABAPENTIN 300 MG CAP PO SCH ×3 (07:45→16:56)
[2017-05-03] MEDS: LISINOPRIL 10 MG TAB PO SCH (07:46)
[2017-05-03] MEDS: SODIUM CHLORIDE 0.9% FLUSH 10 ML FLUSH IV FLUSH SCH (07:46)
[2017-05-03 08:00] VITALS: BP 100/60; PULSE 97; RESP 20; TEMP 97.8; O2SAT 93
[2017-05-03] MEDS: MULTIVITAMINS/MINERALS THERAPEUTIC TAB PO SCH (09:00)
[2017-05-03] MEDS: LACTULOSE SYRUP 20 GM/30 ML CUP PO SCH (09:00)
[2017-05-03 12:00] VITALS: BP 104/67; PULSE 95; RESP 20; TEMP 98.2; O2SAT 98
[2017-05-03] MEDS ORDERED: LISI10TA3 PO (12:19)
[2017-05-03] MEDS ORDERED: METH500T3 PO (12:19)
[2017-05-03] MEDS ORDERED: SERO25TA G-TUBE (12:19)
[2017-05-03] MEDS ORDERED: ENOX30P SQ (12:19)
[2017-05-03] MEDS ORDERED: Lactulose Liq PO (12:19)
[2017-05-03] MEDS ORDERED: NEUR300C PO (12:19)
[2017-05-03] MEDS ORDERED: THERM PO (12:19)
[2017-05-03] MEDS ORDERED: OXYC1TAB63 PO (12:19)
[2017-05-03] MEDS ORDERED: FAMO20TA2 PO (12:19)
[2017-05-03] MEDS ORDERED: PROM25TA10 PO (12:19)
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
[2017-05-03 16:00] VITALS: BP 115/74; PULSE 95; RESP 20; TEMP 99.3; O2SAT 100
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
== END 2017-05-03 18:08 | DRG 956 ==
LOC: NEPI 21:43 → NEDA 22:18 → EDBD 22:18 → N03A 22:56 → N03B 04-19 16:24 → N06A 04-22 16:42
PROVIDERS: ADMIT Surgery Trauma Surgery; ATTEND Surgery Trauma Surgery
PROC: 5A1955Z Respiratory Ventilation, Greater than 96 Consecutive Hours (ICD-10-PCS; principal; 2017-04-10)
PROC: 0BH17EZ Insertion of Endotracheal Airway into Trachea, Via Natural or Artificial Opening (ICD-10-PCS; 2017-04-10)
PROC: 30233L1 Transfusion of Nonautologous Fresh Plasma into Peripheral Vein, Percutaneous Approach (ICD-10-PCS; 2017-04-10)
PROC: 30233N1 Transfusion of Nonautologous Red Blood Cells into Peripheral Vein, Percutaneous Approach (ICD-10-PCS; 2017-04-10)
PROC: 6A550Z2 Pheresis of Platelets, Single (ICD-10-PCS; 2017-04-10)
PROC: 047K3DZ Dilation of Right Femoral Artery with Intraluminal Device, Percutaneous Approach (ICD-10-PCS; 2017-04-11)
PROC: 0QSQ04Z Reposition Right Toe Phalanx with Internal Fixation Device, Open Approach (ICD-10-PCS; 2017-04-11)
PROC: 3E10X8Z Irrigation of Skin and Mucous Membranes using Irrigating Substance (ICD-10-PCS; 2017-04-11)
PROC: 0QS606Z Reposition Right Upper Femur with Intramedullary Internal Fixation Device, Open Approach (ICD-10-PCS; 2017-04-13)
PROC: 0QS204Z Reposition Right Pelvic Bone with Internal Fixation Device, Open Approach (ICD-10-PCS; 2017-04-13)
PROC: 0QS Lower Bones, Reposition (ICD-10-PCS; 2017-04-13)
PROC: 0QSB04Z Reposition Right Lower Femur with Internal Fixation Device, Open Approach (ICD-10-PCS; 2017-04-16)
PROC: 3E0V329 Introduction of Other Anti-infective into Bones, Percutaneous Approach (ICD-10-PCS; 2017-04-16)
PROC: 0HRHX74 Replacement of Right Upper Leg Skin with Autologous Tissue Substitute, Partial Thickness, External Approach (ICD-10-PCS; 2017-04-20)
PROC: 0JBL0ZZ Excision of Right Upper Leg Subcutaneous Tissue and Fascia, Open Approach (ICD-10-PCS; 2017-04-20)
PROC: 0KBQ0ZZ Excision of Right Upper Leg Muscle, Open Approach (ICD-10-PCS; 2017-04-20)
PROC: 0HBHXZZ Excision of Right Upper Leg Skin, External Approach (ICD-10-PCS; 2017-04-20)
PROC: 0Y6P0Z0 Detachment at Right 1st Toe, Complete, Open Approach (ICD-10-PCS; 2017-04-28)
PROC: 0PSP04Z Reposition Right Metacarpal with Internal Fixation Device, Open Approach (ICD-10-PCS; 2017-04-30)
DX: S72.141B Displaced intertrochanteric fracture of right femur, initial encounter for open fracture type I or II (principal); S27.329A Contusion of lung, unspecified, initial encounter; S32.811B Multiple fractures of pelvis with unstable disruption of pelvic ring, initial encounter for open fracture; R57.8 Other shock; J96.90 Respiratory failure, unspecified, unspecified whether with hypoxia or hypercapnia; Z99.11 Dependence on respirator [ventilator] status; M62.82 Rhabdomyolysis; S75.011A Minor laceration of femoral artery, right leg, initial encounter; S72.391B Other fracture of shaft of right femur, initial encounter for open fracture type I or II; Y90.8 Blood alcohol level of 240 mg/100 ml or more; V29.9XXA Motorcycle rider (driver) (passenger) injured in unspecified traffic accident, initial encounter; Y93.9 Activity, unspecified; Y92.9 Unspecified place or not applicable; S71.121A Laceration with foreign body, right thigh, initial encounter; S92.411A Displaced fracture of proximal phalanx of right great toe, initial encounter for closed fracture; S91.119A Laceration without foreign body of unspecified toe without damage to nail, initial encounter; F17.200 Nicotine dependence, unspecified, uncomplicated; K21.9 Gastro-esophageal reflux disease without esophagitis; I10 Essential (primary) hypertension; E87.70 Fluid overload, unspecified; R91.8 Other nonspecific abnormal finding of lung field; D72.825 Bandemia; R11.0 Nausea; T40.4X5A Adverse effect of other synthetic narcotics, initial encounter; Y92.239 Unspecified place in hospital as the place of occurrence of the external cause; S62.231A Other displaced fracture of base of first metacarpal bone, right hand, initial encounter for closed fracture
CPT/HCPCS: 31500; 36246; 36430; 36600; 37236; 43752; 51702; 70450; 71045; 71260; 72125; 72129; 72132; 72170; 72190; 73140; 73502; 73551; 73552; 73560; 73620; 73630; 73660; 74177; 75635; 75710; 75774; 76000; 76937; 80048; 80053; 80307; 81001; 82272; 82550; 82552; 82805; 83605; 83735; 84100; 84155; 85007; 85014; 85018; 85025; 85027; 85610; 85730; 86403; 86850; 86900; 86901; 86920; 87015; 87040; 87070; 87077; 87102; 87116; 87186; 87205; 87206; 87641; 88305; 88311; 90471; 90715; 93005; 93970; 94002; 94003; 94150; 94640; 94664; 94770; 96374; 96375; 99152; 99291; C1713; C1760; C1769; C1874; C1884; C1887; C1894; G0390; J0131; J0330; J0690; J0696; J1100; J1170; J1580; J1630; J1650; J1885; J1940; J2175; J2250; J2270; J2370; J2405; J3010; J3370; J7030; J7050; J7070; J7120; L1830; L3260; L3808; P9016; P9017; P9035; P9045; Q0169; Q9967